=== PATIENT | male | born 1955 | race Caucasian/White ===

== ENCOUNTER 2022-09-27 06:33 | Outpatient (OUT) | payer MEDICARE, SELFPAY ==
[2022-09-27 07:11] LABS: Estimated Average Glucose 103 mg/dL; Glycohemoglobin A1C 5.2 % (4.5-6.2)
[2022-09-27 07:15] LABS: Basophils Absolute Auto 0.1 10^3/uL (0.0-0.1); Basophils Percent Auto 1.2 % (0.2-2.0); Eosinophils Absolute Auto 0.2 10^3/uL (0.0-0.7); Eosinophils Percent Auto 3.2 % (0.9-7.0); Hematocrit 42.7 % (42.0-54.0); Immature Granulocytes Abs Auto 0.02 10^3/uL (0.00-0.03); Immature Granulocytes Pct Auto 0.3 % (0.0-0.5); Lymphocytes Absolute Auto 2.2 10^3/uL (1.2-3.8); Mean Corpuscular HGB Conc 32.8 g/dL (29.9-35.2); Mean Corpuscular Hemoglobin 33.3 pg (25.9-34.0); Mean Corpuscular Volume 101.4 fL (80.0-94.0); Mean Platelet Volume 9.9 fL (9.5-13.5); Monocytes Absolute Auto 0.9 10^3/uL (0.3-0.8); Monocytes Percent Auto 15.3 % (1.7-12.0); Neutrophils Absolute Auto 2.5 10^3/uL (1.4-6.5); Platelet Count 236 10^3/uL (150-450); Red Blood Count 4.21 10^6/uL (4.70-6.10); Red Cell Distribution Width 12.2 % (11.0-15.0); White Blood Count 5.9 10^3/uL (4.0-11.0)
[2022-09-27 07:21] LABS: Alanine Aminotransferase 46 U/L (16-63); Albumin Globulin Ratio 1.2; Albumin Level 3.7 g/dL (3.4-5.0); Alkaline Phosphatase 93 U/L (46-116); Anion Gap 10.5; Aspartate Amino Transferase 28 U/L (15-37); BUN Creatinine Ratio 19.5; Bilirubin Total 0.5 mg/dL (0.2-1.0); Calcium 8.9 mg/dL (8.5-10.1); Carbon Dioxide 29.7 mmol/L (21.0-32.0); Chloride 105 mmol/L (98-107); Estimated GFR (African America >60 (>=60); Estimated GFR (Non-African Ame >60 (>=60); Globulin 3.2 g/dL; Glucose 112 mg/dL (74-106); Potassium 4.2 mmol/L (3.5-5.1); Sodium 141 mmol/L (136-145); Total Protein 6.9 g/dL (6.4-8.2)
[2022-09-27 07:26] LABS: Chol HDL Ratio 2.1; Cholesterol 133 mg/dL (<=200); Free T3 2.56 pg/mL (2.18-3.98); HDL Cholesterol 64 mg/dL (40-60); Triglycerides 100 mg/dL (<=150)
[2022-09-27 08:26] LABS: Prostate Specific Antigen Scrn 0.57 ng/mL (<=4.00)
== END 2022-09-27 06:34 ==
LOC: LAB 06:34
PROVIDERS: PCP Family Medicine; Visit Provider Family Medicine
DX: E78.5 Hyperlipidemia, unspecified (principal); E03.9 Hypothyroidism, unspecified; N40.0 Benign prostatic hyperplasia without lower urinary tract symptoms; K58.9 Irritable bowel syndrome, unspecified; I10 Essential (primary) hypertension; R73.09 Other abnormal glucose; Z12.5 Encounter for screening for malignant neoplasm of prostate
CPT/HCPCS: 36415; 80053; 80061; 83036; 84436; 84443; 84481; 85025; G0103

== ENCOUNTER 2023-10-24 07:07 | Outpatient (OUT) | payer OTHER, SELFPAY ==
[2023-10-24 07:45] LABS: Basophils Absolute Auto 0.1 10^3/uL (0.0-0.1); Basophils Percent Auto 1.6 % (0.2-2.0); Eosinophils Absolute Auto 0.1 10^3/uL (0.0-0.7); Eosinophils Percent Auto 2.6 % (0.9-7.0); Hematocrit 44.6 % (42.0-54.0); Hemoglobin 14.9 g/dL (14.0-18.0); Immature Granulocytes Abs Auto 0.01 10^3/uL (0.00-0.03); Immature Granulocytes Pct Auto 0.2 % (0.0-0.5); Lymphocytes Absolute Auto 1.5 10^3/uL (1.2-3.8); Mean Corpuscular HGB Conc 33.4 g/dL (29.9-35.2); Mean Corpuscular Hemoglobin 33.1 pg (25.9-34.0); Mean Corpuscular Volume 99.1 fL (80.0-94.0); Monocytes Absolute Auto 0.7 10^3/uL (0.3-0.8); Monocytes Percent Auto 17.4 % (1.7-12.0); Neutrophils Absolute Auto 1.8 10^3/uL (1.4-6.5); Neutrophils Percent Auto 42.2 % (43.0-75.0); Platelet Count 205 10^3/uL (150-450); Red Cell Distribution Width 12.8 % (11.0-15.0); White Blood Count 4.3 10^3/uL (4.0-11.0)
[2023-10-24 08:25] LABS: Estimated Average Glucose 100 mg/dL; Glycohemoglobin A1C 5.1 % (4.5-6.2)
[2023-10-24 08:35] LABS: Free T4 0.85 ng/dL (0.76-1.46)
[2023-10-24 08:37] LABS: Alanine Aminotransferase 34 U/L (16-63); Albumin Globulin Ratio 1.3; Alkaline Phosphatase 76 U/L (46-116); Aspartate Amino Transferase 24 U/L (15-37); BUN Creatinine Ratio 19.8; Bilirubin Total 0.8 mg/dL (0.2-1.0); Calcium 8.7 mg/dL (8.5-10.1); Chloride 104 mmol/L (98-107); Cholesterol 139 mg/dL (<=200); Estimated GFR (African America >60 (>=60); Estimated GFR (Non-African Ame >60 (>=60); Free T3 2.35 pg/mL (2.18-3.98); Globulin 3.1 g/dL; Glucose 96 mg/dL (74-106); HDL Cholesterol 70 mg/dL (40-60); Potassium 3.9 mmol/L (3.5-5.1); Sodium 140 mmol/L (136-145); Thyroid Stimulating Hormone 2.148 uIU/mL (0.358-3.740); Total Protein 7.1 g/dL (6.4-8.2); Triglycerides 62 mg/dL (<=150); VLDL CHOLESTEROL 12.4 mg/dL
[2023-10-24 08:50] LABS: Anion Gap 13.1; Carbon Dioxide 26.8 mmol/L (21.0-32.0)
[2023-10-25 04:07] LABS: PSA, Free 0.11 ng/mL; Prostate Specific Ag 0.5 ng/mL (0.0-4.0)
== END 2023-10-24 07:08 | disposition home or self-care (01) ==
LOC: LAB 07:07
PROVIDERS: PCP Family Medicine; Visit Provider Family Medicine
DX: Z00.00 Encounter for general adult medical examination without abnormal findings (principal); E78.5 Hyperlipidemia, unspecified; E03.9 Hypothyroidism, unspecified; I10 Essential (primary) hypertension; R73.09 Other abnormal glucose; N40.0 Benign prostatic hyperplasia without lower urinary tract symptoms
CPT/HCPCS: 36415; 80053; 80061; 83036; 84153; 84154; 84439; 84443; 84481; 85025

== ENCOUNTER 2023-10-27 12:40 | Outpatient (REF) | payer OTHER, SELFPAY ==
[2023-10-27 13:55] LABS: Internal Control Within Normal Limits; Occult Blood Negative
== END 2023-10-27 12:41 | disposition home or self-care (01) ==
LOC: LAB 12:40
PROVIDERS: PCP Family Medicine; Visit Provider Family Medicine
DX: Z00.00 Encounter for general adult medical examination without abnormal findings (principal); E78.5 Hyperlipidemia, unspecified; R73.09 Other abnormal glucose
CPT/HCPCS: G0328

== ENCOUNTER 2024-01-17 10:29 | Outpatient (OUT) | payer OTHER, SELFPAY ==
--- NOTE | 2024-01-17 10:35 | XR_ITS ---
The [address] [address] Patient Name: RONI JIANG MRN: [id number] date: 1955 Sex: M Assigned Patient Location: RAD Current Patient Location: RAD Accession/Order Number: [id number] Exam Date: 01/17/2024 10:40 Report Date: 01/17/2024 10:58 At the request of: KIKE ARENAS Procedure: XR chest 2V EXAMINATION: XR chest 2V HISTORY: Acute Bronchitis J20.9 COMPARISON: XR chest 02/22/2020 FINDINGS: LUNGS: New dense opacity within left lung base favoring infectious infiltrates. VASCULATURE: No increased pulmonary vasculature. PLEURA: No pneumothorax, effusion, or pleural thickening. CARDIAC: No cardiomegaly or cardiac silhouette abnormality. MEDIASTINUM: No visible mass or adenopathy. BONES: No fracture or visible bone lesion. OTHER: Negative. XR/XR chest 2V IMPRESSION: 1. New moderate left basilar infiltrates suggestive of pneumonia. Follow-up chest x-ray in one-2 months to document clearing and to exclude a mass is recommended. Electronically authenticated by: CARROL JIMENEZ Date: 01/17/2024 10:58
== END 2024-01-17 10:30 | disposition home or self-care (01) ==
LOC: RAD 10:30
PROVIDERS: PCP Family Medicine; Visit Provider Family Medicine
DX: J20.9 Acute bronchitis, unspecified (principal)
CPT/HCPCS: 71046; 87070

== ENCOUNTER 2024-12-03 10:10 | Outpatient (OUT) | payer MEDICARE, SELFPAY ==
--- OUTSIDE RECORDS SUMMARY | 2024-12-03 10:16 | XMS_ITS | Clinical Summary ---
Author Organization [facility] Healthcare Address [address] [place] [address] Care Team Providers Care Computer Assistant Name Role Phone Unavailable Primary Care Provider Unavailabl e Social History Tobacco Use Types Packs/Day Years Used Date Smoking Tobacco: Never Assessed Sex and Gender Information Value Date Recorded Sex Assigned at Not on file Legal Sex Male 6:53 PM EDT Gender Identity Not on file Sexual Orientation Not on file Plan of Treatment Not on file
--- OUTSIDE RECORDS SUMMARY | 2024-12-03 10:16 | XMS_ITS | Clinical Summary ---
Author Organization [facility] Address [address] [place] [address] Care Team Providers Care Rate And Cost Analyst Name Role Phone Per Perez MD Primary Care Provider [phone] Juan Ahn MD Unavailable [phone] Allergies No known active allergies Medications levothyroxine (SYNTHROID, LEVOTHROID) 75 MCG tablet Take 1 (one) tablet (75 mcg total) by mouth once daily . Active diclofenac sodium (VOLTAREN) 75 MG EC tablet Take 1 (one) tablet (75 mg total) by mouth daily . 03/08/2021 Active aspirin 81 MG EC tablet Take 1 (one) tablet (81 mg total) by mouth daily . 90 tablet 3 02/15/2022 Active atorvastatin (LIPITOR) 80 MG tablet Take 1 (one) tablet (80 mg total) by mouth nightly . 90 tablet 3 02/15/2022 Active metoprolol tartrate (LOPRESSOR) 25 MG tablet Take 1 (one) tablet (25 mg total) by mouth 2 (two) times a day . 180 tablet 3 02/15/2022 Active nitroGLYCERIN (NITROSTAT) 0.[address] 1 (one) tablet (0.4 mg total) under the tongue every 5 (five) minutes as needed for chest pain . 25 tablet 3 02/15/2022 Active Active Problems Problem Noted Date Diagnosed Date Coronary artery disease 03/21/2024 NSTEMI (non-ST elevated myocardial infarction) 1 04/25/2019 Assessment & Plan (02/25/2020 8:06 AM EST): -Pt with no known cardiac history or family history of cardiac disease. Presented to [facility] with CP, ruled in for NSTEMI with elevated troponin. Transferred to [facility] for further cardiac eval/intervention -EKG reveals NSR w/ TWI in the anterolateral leads -Cr. 1.0 -s/p percutaneous intervention with drug eluting stent placed ot the left anterior descending artery x2 -right radial site without complications -d/w patient importance of DAPT uninterrupted x1 year -encouraged cardiac rehab with diet/ lifestyle modifications -patient will arrange a f/u appointment with known emt paramedic in [place] -Continue ASA, Brilinta, BB, statin -ok to discharge home today from a CV standpoint Dyslipidemia 02/24/2020 Assessment & Plan (02/25/2020 8:06 AM EST): - TC 188, triglycerides 97, HDL 82, LDL 87 per lipid panel today. - continue Lipitor 80mg daily ACS (acute coronary syndrome) 02/23/2020 Family History Medical History Relation Comments Diabetes Father Heart attack Father Heart attack Maternal Uncle 1 Heart disease Maternal Uncle 2 Relation Status Comments Father Maternal Uncle 1 Maternal Uncle 2 Social History Tobacco Use Types Packs/Day Years Used Date Smoking Tobacco: Former Cigarettes 0.3 10 Q uit: 04/10/1994 Smokeless Tobacco: Never Tobacco Cessation:Counseling Given: Not Answered Alcohol Use Standard Drinks/Week Comments Yes 2 (1 standard drink = 0.6 oz pur e alcohol) 1 glass a wine a week AUDIT-C Answer Date Recorded Q1: How often do you have a drink containing alc ohol? Monthly or less 03/24/2020 Q2: How many drinks containi ng alcohol do you have on a typical day when you are drinking? Not asked 03/24/2020 Q3: How often do you have si x or more drinks on one occasion? Not asked 03/24/2020 Sex and Gender Information Value Date Recorded Sex Assigned at Not on file Legal Sex Male 8:12 PM EST Gender Identity Male 02/23/2020 9:13 PM EST Sexual Orientation Straight 02/23/2020 9: 34 PM EST Last Filed Vital Signs Vital Sign Reading Time Taken Comments Blood Pressure 143/77 03/21/2024 12:43 PM EST Pulse 60 03/21/2024 12:43 PM EST Temperature 36.6 C (97.9 F) 02/25/2020 8:12 AM EST Respiratory Rate 18 02/25/2020 8:12 AM EST Oxygen Saturation 99% 02/25/2020 8:12 AM EST Inhaled Oxygen Concentration - - Weight 94.3 kg (208 lb) 03/21/2024 12:37 PM EST Height 177.8 cm (5' 10 ) 03/21/2024 12:37 PM EST Body Mass Index 29.84 03/21/2024 12:37 PM EST Plan of Treatment Health Maintenance Due Date Last Done Comments Abdominal Aortic Ultrasound 1955 CT Colonography 1955 Colonoscopy 1955 Colorectal Cancer Screening/Monitoring 1955 Fecal DNA 1955 Fecal occult blood test (FOBT,FIT) 1955 PSA Level 1955 Tetanus: Every 10yrs 1955 Medicare Wellness Visit 1960 Depression Screening/Follow- Up (PHQ-2/9) 1969 Hepatitis C Screening 1975 Flexible sigmoidoscopy 2007 Respiratory Syncytial Virus Immunization: Risk, 60-74 Risk, or 75+ (1 - Risk 60-74 years 1-dose series) 2017 Falls Risk Assessment 2022 COVID-19 Vaccine (2023-2 5 season) 2024 12/28/2023, 01/11/2023, 08/03/2021, Additional history exists Influenza Vaccine (#1) 2024 , 01/11/2023, 01/21/2022, Additional history exists Zoster Vaccines Completed 03/28/2018, 01/05/2018 Pneumococcal Vaccine: Age 50+ Completed 11/03/2022, 03/25/2020 Medical Devices Implanted Type Area Animal Laboratory Technician Device Identifier Shelf Expiration Date Model / Serial / Lot Stent 3.00 X 12 Synergy Xd Mr - [id number] Implanted:Qty : 1 on 02/24/2020 by Juan Ahn MD at [facility] Stent N/A: Coronary - [employer] [id number] 09/03/2021 [id number] 0 / / [id number] Stent 3.50 X 28 Synergy Xd Mr - [id number] Implanted:Qty : 1 on 02/24/2020 by Juan Ahn MD at [facility] Stent N/A: Coronary - [employer] [id number] 12/17/2021 [id number] 5 / / [id number] Insurance [employer] Advance Directives For more information, please contact: [phone] * Full Code (Latest Code Status on File) Date Activated Date Inactivated Comments 02/24/2020 5:57 PM 02/25/2020 5:21 PM * Full Code Date Activated Date Inactivated Comments 02/23/2020 8:33 PM 02/24/2020 5:57 PM * Full Code - Unverified Date Activated Date Inactivated Comments 02/23/2020 7:53 PM 02/23/2020 8:33 PM Care Teams Rate And Cost Analyst Relationship Specialty Start Date End Date Per Perez MD [address] [facility] [place] [address] PCP - General Family Medicine 02/23/20 Juan Ahn MD [address] [place], [place] [id number] Consulting Physician Cardiology 03/24/20
--- OUTSIDE RECORDS SUMMARY | 2024-12-03 10:21 | XMS_ITS | CCD ---
Author Organization [facility] Care Team Providers Care Long Term Acute Care Registered Nurse Name Role Phone PHYSICIAN, DEFAULT Unavailable Unavailable PHYSICIAN, DEFAULT Unavailable Unavailable Kike Perez Primary Care Provider Ruben Santana Unavailable [phone] KIKE PEREZ Primary Care Unavailable JOVAN QUEZADA Admitting Unavailable CARROL BHATIA Consulting Unavailable NIMA LONGORAI Attending Unavailable KIKE PEREZ Primary Care Unavailable KIKE PEREZ Referring Unavailable Kike Perez MD Primary Care Provider [phone] Ruben Santana MD Unavailable Ruben Santana MD Unavailable DR KIKE PEREZ Consulting Unavailable DR KIKE PEREZ Attending Unavailable DR KIKE PEREZ Admitting Unavailable DR KIKE PEREZ Primary Care Unavailable Kike Perez MD Primary Care Provider [phone] Ruben Santana MD Unavailable KIKE PEREZ Primary Care Unavailable RUBEN SANTANA Attending Unavailabl e KIKE PEREZ Primary Care Unavailable RUBEN SANTANA Attending Unavailabl e Medications Current Medications Medication Drug Class(es) Dates Sig (Normalized) Sig (Original) aspirin 81 mg delayed release oral tablet (12 sources) Platelet Aggregation Inhibitor, Nonsteroidal Anti-inflammatory Drug Start: 02-15-2022 take 1 tablet by mouth once daily aspirin 81 MG EC tablet Take 1 (one) tablet (81 mg total) by mouth daily . 90 tablet 3 02/15/2022 Active Start: 02-24-2020 End: 03-23-2021 take 1 tablet by mouth once daily aspirin 81 MG EC tablet Take 1 (one) tablet (81 mg total) by mouth daily . 90 tablet 3 03/23/2021 Active atorvastatin 80 mg oral tablet (12 sources) HMG-CoA Reductase Inhibitor Start: 02-15-2022 take 1 tablet by mouth once daily atorvastatin (LIPITOR) 80 MG tablet Take 1 (one) tablet (80 mg total) by mouth nightly . 90 tablet 3 02/15/2022 Active Start: 03-15-2021 End: 03-23-2021 take 1 tablet by mouth once daily atorvastatin (LIPITOR) 80 MG tablet Take 1 (one) tablet (80 mg total) by mouth nightly . 90 tablet 3 03/23/2021 Active Start: 02-25-2020 End: 03-24-2020 take 1 tablet by mouth once daily atorvastatin (LIPITOR) 80 MG tablet Take 1 (one) tablet (80 mg total) by mouth nightly . 90 tablet 3 03/24/2020 Active Start: 02-24-2020 End: 02-25-2020 take 80 mg by mouth once daily 80 mg, Oral, Nightly, F irst dose (after last modification) on 02/24/20 at 2100 Start: 02-23-2020 End: 02-24-2020 atorvastatin (LIPITOR) table t 40 mg diclofenac sodium 75 mg delayed release oral tablet (3 sources) Nonsteroidal Anti-inflammatory Drug Start: 03-08-2021 take 1 tablet by mouth once daily diclofenac sodium (VOLTAREN) 75 MG EC tablet Take 1 (one) tablet (75 mg total) by mouth daily . 03/08/2021 Active metoprolol tartrate 25 mg oral tablet (11 sources) beta-Adrenergic Aneesh Start: 02-15-2022 take 1 tablet by mouth twice daily metoprolol tartrate (LOPRESSOR) 25 MG tablet Take 1 (one) tablet (25 mg total) by mouth 2 (two) times a day . 180 tablet 3 02/15/2022 Active Start: 03-15-2021 End: 03-23-2021 take 1 tablet by mouth twice daily metoprolol tartrate (LOPRESSOR) 25 MG tablet Take 1 (one) tablet (25 mg total) by mouth 2 (two) times a day . 180 tablet 3 03/23/2021 Active Start: 02-23-2020 End: 03-24-2020 take 1 tablet by mouth twice daily metoprolol tartrate (LOPRESSOR) 25 MG tablet Take 1 (one) tablet (25 mg total) by mouth 2 (two) times a day . 180 tablet 3 03/24/2020 Active nitroglycerin 0.4 mg sublingual tablet (9 sources) Nitrate Vasodilator Start: 02-15-2022 nitroGLYCE RIN (NITROSTAT) 0.[address] 1 (one) tablet (0.4 mg total) under the tongue every 5 (five) minutes as needed for chest pain . 25 tablet 3 02/15/2022 Active Start: 03-23-2021 nitroGLYCERIN (NITROSTAT) 0.[address] 1 (one) tablet (0.4 mg total) under the tongue every 5 (five) minutes as needed for chest pain . 25 tablet 3 03/23/2021 Active Start: 03-02-2020 End: 03-23-2021 nitroGLYCERIN (NITROSTAT) 0. 4 MG SL tablet Start: 02-24-2020 End: 02-25-2020 0.4 mg, Sublingual, Every 5 min PRN, chest pain, Starting 02/24/20 at 1756 For chest pain. May give up to 3 doses. Call physician for chest pain unrelieved by Nitroglycerin, or recurrent chest pain. DO NOT CRUSH OR CHEW. Completed/Discontinued Medications Medication Drug Class(es) Dates Sig (Normalized) Sig (Original) acetaminophen 325 mg oral tablet (1 source) Start: 02-24-2020 End: 02-25-2020 take 1 tablet by mouth every four hours as needed 650 mg, Oral, Every 4 hours PRN, mild pain, fever 100.4 F or greater, headaches, Starting 02/24/20 at 1756 acetaminophen 325 mg / HYDROcodone bitartrate 5 mg oral tablet (1 source) Opioid Agonist Start: 02-24-2020 End: 02-25-2020 take 1 tablet by mouth every four hours as needed 1 tablet, Oral, Every 4 hours PRN, moderate to severe pain, Starting 02/24/20 at 1756 aluminum hydroxide 40 mg/ml / magnesium hydroxide 40 mg/ml / simethicone 4 mg/ml oral suspension (1 source) Start: 02-24-2020 End: 02-25-2020 take 30 mL by mouth every four hours as needed 30 mL, Oral, Every 4 hours PRN, indigestion, Starting 02/24/20 at 1756 Atropine (1 source) Anticholinergic, Cholinergic Muscarinic Antagonist Start: 02-24-2020 End: 02-25-2020 1 mg, Intravenous, As needed, SINGLE DOSE for bradycardia (HR less than 50), complete heart block, or escape rhythms with symptoms of hemodynamic compromise, Starting Mon02/24/20 at 1756 [] NOTIFY PHYSICIAN, and request patient transfer to cardiac unit if not already there. [] If patient has history of glaucoma, notify physician before administering Atropine, if condition allows. clopidogrel 75 mg oral tablet (3 sources) P2Y12 Platelet Inhibitor Start: 09-21-2020 End: 03-23-2021 take 1 tablet by mouth once daily clopidogreL (Plavix) 75 mg tablet Take 1 (one) tablet (75 mg total) by mouth daily Take 300mg (4 tablets) for first dose only. . 94 tablet 3 09/21/2020 03/23/2021 Discontinued (Prescriber Discontinued) 250 ml heparin sodium, porcine 100 unt/ml injection (1 source) Unfractionated Heparin, Anti-coagulant Start: 02-23-2020 End: 02-24-2020 heparin (porcine) 25,000 unit/250 mL in 0.45% NaCl infusion heparin bolus from bag 0-5,000 Units (1 source) Start: 02-23-2020 End: 02-24-2020 heparin bolus from bag 0-5,000 Units levothyroxine sodium 0.025 mg oral tablet (9 sources) l-Thyroxine Start: 02-24-2020 End: 02-25-2020 take 75 ug by mouth once daily 75 mcg, Oral, Daily, First dose on Mon02/24/20 at 0600 For patients on continuous tube feed: Hold TF from 1 hr before until 1 hr after each dose. TF rate may need adjustment to meet caloric needs. take 1 tablet by mouth once kamilah y levothyroxine (SYNTHROID, LEVOTHROID) 75 MCG tablet Take 1 (one) tablet (75 mcg total) by mouth once daily . Active naloxone (NARCAN) injection 0.1 mg (1 source) Start: 02-24-2020 End: 02-25-2020 naloxone (NARCAN) injection 0.1 mg 2 ml ondansetron 2 mg/ml injection (1 source) Serotonin-3 Receptor Antagonist Start: 02-24-2020 End: 02-25-2020 take 4 mg intravenous route every six hours as needed 4 mg, Intravenous, Every 6 hours PRN, nausea, vomiting, Starting 02/24/20 at 1756 1000 ml sodium chloride 9 mg/ml injection (3 sources) Start: 02-24-2020 End: 02-25-2020 take 75 mL intravenous route every hour 75 mL/hr, Intravenous, Continuous, Starting Mon02/24/20 at 1845, For 4 hours Start: 02-24-2020 End: 02-24-2020 sodium chloride 0.9% (NS) ticagrelor 90 mg oral tablet (7 sources) Start: 03-24-2020 End: 09-21-2020 take 1 tablet by mouth twice daily ticagrelor (BriLINTA) 90 mg Tab tablet Take 1 (one) tablet (90 mg total) by mouth 2 (two) times a day . 180 tablet 3 03/24/2020 09/21/2020 Discontinued (Prescriber Discontinued) Start: 02-23-2020 End: 03-24-2020 take 1 tablet by mouth twice daily ticagrelor (BriLINTA) 90 mg Tab tablet Take 1 (one) tablet (90 mg total) by mouth 2 (two) times a day . 60 tablet 11 02/25/2020 03/24/2020 Discontinued (Reorder) traZODone hydrochloride 50 mg oral tablet (1 source) Serotonin Reuptake Inhibitor Start: 02-24-2020 End: 02-25-2020 take 50 mg by mouth once daily as needed for sleep 50 mg, Oral, Nightly PRN, sleep, Starting Mon02/24/20 at 1756 May repeat times 1 in 30 minutes if still awake. Problems Problem Classification Problem Date Documented Da te Episodic/Chronic Acute myocardial infarction (9 sources) Myocardial infarction; Translations: [Non-ST elevation (NSTEMI) myocardial infarction] Onset: 02-24-2020 02-24-2020 Chronic Coronary atherosclerosis and other heart disease (17 sources) Acute coronary syndrome; Translations: [Coronary arteriosclerosis] Onset: 02-23-2020 02-23-2020 Chronic Disorders of lipid metabolism (13 sources) Dyslipidemia; Translations: [Hyperlipidemia, unspecified] Onset: 02-24-2020 02-24-2020 Chronic Other screening for suspected conditions (not mental disorders or infectious disease) (1 source) Encounter for screening for malignant neoplasm of prostate; Translations: [ENC SCREEN MALIG NEOPLASM PROSTATE] Onset: 08-27-2021 Episodic Results Test Name Value Interpretation Reference Range Facility APOLIPOPROTEIN Bon Apolipoprotein B [Mass/Vol] 59 mg/dL Normal <90 [facility] Comment on above: Result Comment: Reference Range: <90 Risk Category: Optimal < 90 Moderate 90 - 119 High > or = 120 Cardiovascular event risk category cut points (optimal, moderate, high) are based on National Lipid Association recommendations-Ribera TA et al. J Clin Lipid. 2015;9:129-169 and Lamont PS et al. Endocr Pract. 2017;23(Suppl 2):1-87. Performed By: #### 3 [id number], 5224 #### [facility]/[place] [id number] [facility] [place], [place] [employer]: Rory Mcdonough M.D.,PhD #### [id number], [id number], 5060 #### [facility] [place] [address] [employer]: Zachary Koenig MD HEPATIC FUNCTION PANEL Albumin [Mass/Vol] 4.7 g/dL Normal 3.6-5.1 [facility] Comment on above: Performed By: #### 3 4604, 5224 #### [facility]/[address] [place], [place] [employer]: Rory Mcdonough M.D.,PhD #### [id number], 93301, 7600 #### [facility] [place] [address] [employer]: Zachary Koenig MD Albumin/Globulin [Mass ratio] 2.4 {ratio} Normal 1.0-2.5 [facility] Comment on above: Performed By: #### 3 4604, 5224 #### [facility]/[place] [address] [facility] [place] [employer]: Rory Mcdonough M.D.,PhD #### [id number], 12307, 7600 #### [facility] [address], [address] [place], [place] [id number] [employer]: Zachary Koenig MD ALP [Catalytic activity/Vol] 65 U/L Normal 35-144 [facility] Comment on above: Performed By: #### 3 4604, 5224 #### [facility]/[place] [address] [facility] [place] [employer]: Rory Mcdonough M.D.,PhD #### [id number], 04452, 7600 #### [facility] of [place] [address] , [address] [place], [place] [id number] [employer]: Zachary Koenig MD ALT [Catalytic activity/Vol] 29 U/L Normal 9-46 [facility] Comment on above: Performed By: #### 3 4604, 5224 #### [facility]/[place] [address] [facility] [place] [employer]: Rory Mcdonough M.D.,PhD #### [id number], 85197, 7600 #### [facility] of [address] , [address] [place], [place] [id number] [employer]: Zachary Koenig MD AST [Catalytic activity/Vol] 28 U/L Normal 10-35 [facility] Comment on above: Performed By: #### 3 4604, 5224 #### [facility]/[place] [address] [facility] [place] [employer]: Rory Mcdonough M.D.,PhD #### 47535, 71377, 7600 #### [facility] of [place] [address] [address] , [address] [place], [place] [id number] [employer]: Zachary Koenig MD Bilirubin [Mass/Vol] 0.7 mg/dL Normal 0.2-1.2 [facility] Comment on above: Performed By: #### 3 4604, 5224 #### [facility]/[place] [address] [place] [address] [employer]: Rory Mcdonough M.D.,PhD #### [id number], 38566, 7600 #### [facility] [address] [employer]: Zachary Koenig MD BILIRUBIN, INDIRECT 0.5 mg/dL (calc) Normal 0.2-1.2 [facility] Comment on above: Performed By: #### 3 4604, 5224 #### [facility]/[address] [place] [employer]: Rory Mcdonough M.D.,PhD #### 56484, 87044, 7600 #### [facility] of [address] [employer]: Zachary Koenig MD Bilirubin.indirect [Mass/Vol] 0.2 mg/dL Normal < OR = 0.2 [facility] Comment on above: Performed By: #### 3 4604, 5224 #### [facility]/[address] [place] [employer]: Rory Mcdonough M.D.,PhD #### 54509, 55511, 7600 #### [facility] of [address] [employer]: Zachary Koenig MD Globulin (S) [Mass/Vol] 2.0 g/dL Normal 1.9-3.7 [facility] Comment on above: Performed By: #### 3 4604, 5224 #### [facility]/[address] [place] [employer]: Rory Mcdonough M.D.,PhD #### 62870, 54586, 7600 #### [facility] of [place] [id number] [employer]: Zachary Koenig MD Protein [Mass/Vol] 6.7 g/dL Normal 6.1-8.1 [facility] Comment on above: Performed By: #### 3 4604, 5224 #### [facility] [address] [place] [employer]: Rory Mcdonough M.D.,PhD #### [id number], 40981, 7600 #### [facility] [address] , [address] [place] [id number] [employer]: Zachary Koenig MD HS CRPon 03-27-2024 HS CRP 0.6 mg/L Normal [facility] Comment on above: Result Comment: Refe rence Range Optimal <1.0 Jeashly PS et al. Endocr Pract.2017;23(Suppl 2):1-87. For ages >17 Years: hs-CRP mg/L Risk According to AHA/CDC Guidelines <1.0 Lower relative cardiovascular risk. 1.0-3.0 Average relative cardiovascular risk. 3.1-10.0 Higher relative cardiovascular risk. Consider retesting in 1 to 2 weeks to exclude a benign transient elevation in the baseline CRP value secondary to infection or inflammation. >10.0 Persistent elevation, upon retesting, may be associated with infection and inflammation. Shahram TA, Claus GA, Juan RW, et al. Markers of inflammation and cardiovascular disease: application to clinical and public health practice: A statement for healthcare professionals from the Centers for Disease Control and Prevention and the [place] [employer]. Circulation 2003; 107(3): 499-511. Performed By: #### 3 4604, 5224 #### [facility]/[place] [id number] [facility] [address] [place], [place] [employer]: Rory Mcdonough M.D.,PhD #### 26484, 66155, 7600 #### [facility] [address] [facility], [address] [place] [id number] [employer]: Zachary Koenig MD LIPID PANEL, STANDARDon 03-10 Cholesterol [Mass/Vol] 162 mg/dL Normal <200 [facility] Comment on above: Performed By: #### 3 4604, 5224 #### [facility]/[place] [address] [facility] [address] [place] [employer]: Rory Mcdonough M.D.,PhD #### 69493, 06178, 7600 #### [facility] [address], [address] [place] [address] [employer]: Zachary Koenig MD Cholesterol in HDL [Mass/Vol] 77 mg/dL Normal > OR = 40 [facility] Comment on above: Performed By: #### 3 4604, 5224 #### [facility]/[place] [address] [facility] [place] [employer]: Rory Mcdonough M.D.,PhD #### 61534, 39401, 7600 #### [facility] [address], [address] [place] [address] [employer]: Zachary Koenig MD Cholesterol in LDL [Mass/Vol] 69 mg/dL Normal [facility] Comment on above: Result Comment: Refe rence range: <100 Desirable range <100 mg/dL for primary prevention; <70 mg/dL for patients with CHD or diabetic patients with > or = 2 CHD risk factors. LDL-C is now calculated using the Carmella calculation, which is a validated novel method providing better accuracy than the Friedewald equation in the estimation of LDL-C. Tian MARSHALL et al. DIDI. 2013;310(19): 0934-5542 (http://education.LetsVenture.StyleShare/faq/LGB066) Performed By: #### 3 4604, 5224 #### [facility] [place] [employer]: Rory Mcdonough M.D.,PhD #### 98575, 10518, 7600 #### [facility] [address], [address] [place] [address] [employer]: Zachary Koenig MD Cholesterol.total/Cho lesterol in HDL [Mass ratio] 2.1 {ratio} Normal <5.0 [facility] Comment on above: Performed By: #### 3 4604, 5224 #### [facility]/[place] [address] [facility] [place] [employer]: Rory Mcdonough M.D.,PhD #### 30356, 91530, 7600 #### [facility] [address], [address] [place] [address] [employer]: Zachary Koenig MD NON HDL CHOLESTEROL 85 mg/dL (calc) Normal <130 [facility] Comment on above: Result Comment: For patients with diabetes plus 1 major ASCVD risk factor, treating to a non-HDL-C goal of <100 mg/dL (LDL-C of <70 mg/dL) is considered a therapeutic option. Performed By: #### 3 4604, 5224 #### [facility]/[address] [place] [employer]: Rory Mcdonough M.D.,PhD #### 59161, 65074, 7600 #### [facility] [address], [address] [place] [address] [employer]: Zachary Koenig MD Triglyceride [Mass/Vol] 77 mg/dL Normal <150 [facility] Comment on above: Performed By: #### 3 4604, 5224 #### [facility]/[address] [place] [employer]: Rory Mcdonough M.D.,PhD #### [id number], 03551, 7600 #### [facility] of [address] [employer]: Zachary Koenig MD LIPOPROTEIN (a)on 03-27-2024 Lipoprotein a [Mass/Vol] mg/dL Normal <75 [facility] Comment on above: Result Comment: Risk Category Optimal < 75 nmol/L Moderate 75 - 125 nmol/L High > 125 nmol/L Cardiovascular event risk category cut points (optimal, moderate, high) are based on Lester Victoria JACC 2017;69:692-711. Performed By: #### 3 7524, 5224 #### [facility] [address] [place] [address] [employer]: Rory Mcdonough M.D.,PhD #### 46661, 85731, 2750 #### [facility] [address], [address] [place] [address] [employer]: Zachary Koenig MD ECG 12 Leadon 03-21-2024 Atrial Rate [facility] P [place] [facility] P-R Interval [facility] Q-T Interval [facility] Q-T Interval (corrected) [facility] QRS Duration [facility] QTC Calculation (Bezet) [facility] R [place] [facility] T [place] [facility] Ventricular [facility] CBC AUTO DIFFon 08-24-2021 BASO # 0.1 103/ul Normal 0.0-0.1 [facility] Comment on above: Performed By: #### C BC #### [facility] [address] [place] [address] Dr. Fredy Trejo Basophils/100 WBC (Bld) 1.5 % Normal 0.2-2.0 [facility] Comment on above: Performed By: #### C BC #### [facility] [address] [place] [address] Dr. Fredy Trejo EO # 0.1 103/ul Normal 0.0-0.7 [facility] Comment on above: Performed By: #### C BC #### [facility] [address] [place] [address] Dr. Fredy Trejo Eosinophils/100 WBC (Bld) 2.8 % Normal 0.9-7.0 [facility] Comment on above: Performed By: #### C BC #### [facility] [address] [place] [address] Dr. Fredy Trejo Erythrocyte distribution width (RBC) [Ratio] 13.2 % Normal 11.0-15.0 [facility] Comment on above: Performed By: #### C BC #### [facility] [address] [place] [address] Dr. Fredy Trejo Hematocrit (Bld) [Volume fraction] 42.2 % Normal 42.0-54.0 [facility] Comment on above: Performed By: #### C BC #### [facility] [address] [place] [address] [address] Fredy Trejo Hemoglobin (Bld) [Mass/Vol] 14.2 g/dL Normal 14.0-18.0 [facility] Comment on above: Performed By: #### C BC #### [facility] [address] [place] [address] Dr. Fredy Trejo IG # 0.01 10e3/ul Normal 0.00-0.03 [facility] Comment on above: Performed By: #### C BC #### [facility] [address] [place] [address] Dr. Fredy Trejo IG % 0.2 % Normal 0.0-0.5 [facility] Comment on above: Performed By: #### C BC #### [facility] [address] [place] [address] Dr. Fredy Trejo LYMPH # 2.1 103/ul Normal 1.2-3.8 [facility] Comment on above: Performed By: #### C BC #### [facility] [address] [place] [address] Dr. Fredy Trejo Lymphocytes/100 WBC (Bld) 44.7 % Normal 20.5-60.0 [facility] Comment on above: Performed By: #### C BC #### [facility] [address] [place] [address] Dr. Fredy Trejo MANUAL DIFF REQ NO Normal [facility] Comment on above: Performed By: #### C BC #### [facility] [address] [place] [address] Dr. Fredy Trejo MCH (RBC) [Entitic mass] 33.6 pg Normal 25.9-34.0 [facility] Comment on above: Performed By: #### C BC #### [facility] [address] [place] [address] Dr. Fredy Trejo MCHC (RBC) [Mass/Vol] 33.6 g/dL Normal 29.9-35.2 [facility] Comment on above: Performed By: #### C BC #### [facility] [address] [place] [address] [address] Fredy Trejo MCV (RBC) [Entitic vol] 99.8 fL Critically high 80.0-94.0 [facility] Comment on above: Performed By: #### C BC #### [facility] [address] [place] [address] [address] Fredy Trejo MONO # 0.7 103/ul Normal 0.3-0.8 [facility] Comment on above: Performed By: #### C BC #### [facility] [address] [place] [address] [address] Fredy Trejo Monocytes/100 WBC (Bld) 15.5 % Critically high 1.7-12.0 [facility] Comment on above: Performed By: #### C BC #### [facility] [address] [place] [address] Dr. Fredy Trejo NEUT # 1.7 103/ul Normal 1.4-6.5 [facility] Comment on above: Performed By: #### C BC #### [facility] [address] [place] [address] Dr. Fredy Trejo Neutrophils/100 WBC (Bld) 35.3 % Critically low 43.0-75.0 [facility] Comment on above: Performed By: #### C BC #### [facility] [address] [place] [address] Dr. Fredy Trejo Platelet mean volume (Bld) [Entitic vol] 9.3 fL Critically low 9.5-13.5 [facility] Comment on above: Performed By: #### C BC #### [facility] [address] [place] [address] Dr. Fredy Trejo PLT 240 103/ul Normal 150-450 [facility] Comment on above: Performed By: #### C BC #### [facility] [address] [place] [address] [address] Fredy Trejo RBC 4.23 106/ul Critically low 4.70-6.10 [facility] Comment on above: Performed By: #### C BC #### [facility] [address] [place] [address] [address] Fredy Trejo WBC 4.7 103/ul Normal 4.0-11.0 [facility] Comment on above: Performed By: #### C BC #### [facility] [address] [place] [address] Dr. Fredy Trejo FREE THYROXINE INDEX T7on FTI 2.13 Normal 1.30-4.50 [facility] Comment on above: Performed By: #### L IPID, T7, TSH, CMP #### [facility] [address] [place] [address] Dr. Fredy Trejo T3U 38.0 % Normal 33.0-40.0 [facility] Comment on above: Performed By: #### L IPID, T7, TSH, CMP #### [facility] [address] [place] [address] Dr. Fredy Trejo T4 [Mass/Vol] 5.60 ug/dL Normal 4.50-12.10 [facility] Comment on above: Performed By: #### L IPID, T7, TSH, CMP #### [facility] [address] [place] [address] Dr. Fredy Trejo GLYCOHEMOGLOBIN A1Con 2021 ADA RECOMMENDATION SEE BELOW Normal [facility] Comment on above: Result Comment: ADA RECOMMENDED LIMIT 4.0 - 6.0 ADA THERAPEUTIC TARGET < 7.0 ACTION SUGGESTED > 7.0 Performed By: #### A 1C #### [facility] [address] [place] [address] Dr. Fredy Trejo Glucose [Mass/Vol] 108 mg/dL Normal [facility] Comment on above: Performed By: #### A 1C #### [facility] [address] [place] [address] Dr. Fredy Trejo HbA1c (Bld) [Mass fraction] 5.4 % Normal 4.5-6.2 [facility] Comment on above: Performed By: #### A 1C #### [facility] [address] [place] [address] Dr. Fredy Trejo LIPID PROFILEon 08-24-2021 CHOL-HDL RATIO NORM SEE BELOW Normal [facility] Comment on above: Result Comment: 3.3 - 4.4 LOW RISK 4.4 - 7.1 AVERAGE RISK 7.1 - 11.0 MODERATE RISK >11.0 HIGH RISK Performed By: #### L IPID, T7, TSH, CMP #### [facility] [address] [address] [address] Fredy Trejo Cholesterol [Mass/Vol] 150 mg/dL Normal <=200 [facility] Comment on above: Performed By: #### L IPID, T7, TSH, CMP #### [facility] [address] [address] [address] Fredy Trejo Cholesterol in HDL [Mass/Vol] 53 mg/dL Normal 40-60 [facility] Comment on above: Performed By: #### L IPID, T7, TSH, CMP #### [facility] [address] [address] [address] Fredy Trejo Cholesterol in LDL [Mass/Vol] 72.0 mg/dL Normal [facility] Comment on above: Performed By: #### L IPID, T7, TSH, CMP #### [facility] [address] [address] [address] Fredy Trejo Cholesterol.total/Cho lesterol in HDL [Mass ratio] 2.8 {ratio} Normal [facility] Comment on above: Performed By: #### L IPID, T7, TSH, CMP #### [facility] [address] [address] [address] Fredy Trejo HDL NORMAL > or = 60 mg/dl - LO W CARDIOVASCULAR RISK <40 mg/dl - HIGH CARDIOVASCULAR RISK Normal [facility] Comment on above: Performed By: #### L IPID, T7, TSH, CMP #### [facility] [address] [address] [address] Fredy Trejo LDL CALC NORMAL SEE BELOW Normal [facility] Comment on above: Result Comment: <100 mg/dl OPTIMAL 100 - 129 mg/dl NEAR OR ABOVE OPTIMAL 130 - 159 mg/dl BORDERLINE HIGH 160 - 189 mg/dl HIGH >190 mg/dl VERY HIGH Performed By: #### L IPID, T7, TSH, CMP #### [facility] [address] [address] [address] Fredy Trejo Triglyceride [Mass/Vol] 125 mg/dL Normal <=150 [facility] Comment on above: Performed By: #### L IPID, T7, TSH, CMP #### [facility] [address] [address] [address] Fredy Trejo VLDL CALC 25.0 mg/dL Normal [facility] Comment on above: Performed By: #### L IPID, T7, TSH, CMP #### [facility] [address] [address] [address] Fredy Trejo OCC BLD IMMUNO SCREENon 08-08 OCCULT BLOOD Negative Normal NEGATIVE [facility] Comment on above: Performed By: #### O BSCRN #### [facility] [address] [place] [address] Dr. rFedy Trejo PROF 14(COMP METB)on 022 Albumin [Mass/Vol] 3.8 g/dL Normal 3.4-5.0 [facility] Comment on above: Performed By: #### L IPID, T7, TSH, CMP #### [facility] [address] [place] [address] Dr. Fredy Trejo Albumin/Globulin [Mass ratio] 1.2 {ratio} Normal [facility] Comment on above: Performed By: #### L IPID, T7, TSH, CMP #### [facility] [address] [address] [address] Fredy Trejo ALP [Catalytic activity/Vol] 81 U/L Normal 46-116 [facility] Comment on above: Performed By: #### L IPID, T7, TSH, CMP #### [facility] [address] [place] [address] Dr. Fredy Trejo ALT [Catalytic activity/Vol] 40 U/L Normal 16-63 [facility] Comment on above: Performed By: #### L IPID, T7, TSH, CMP #### [facility] [address] [place] [address] Dr. Fredy Trejo Anion gap [Moles/Vol] 10.4 mmol/L Normal [facility] Comment on above: Performed By: #### L IPID, T7, TSH, CMP #### [facility] [address] [address] [address] Frdey Trejo AST [Catalytic activity/Vol] 24 U/L Normal 15-37 [facility] Comment on above: Performed By: #### L IPID, T7, TSH, CMP #### [facility] [address] [address] [address] Fredy Trejo Bilirubin [Mass/Vol] 0.5 mg/dL Normal 0.2-1.0 [facility] Comment on above: Performed By: #### L IPID, T7, TSH, CMP #### [facility] [address] [place] [address] Dr. Fredy Trejo Calcium [Mass/Vol] 8.8 mg/dL Normal 8.5-10.1 [facility] Comment on above: Performed By: #### L IPID, T7, TSH, CMP #### [facility] [address] [place] [address] Dr. Fredy Trejo Chloride [Moles/Vol] 102 mmol/L Normal 98-107 [facility] Comment on above: Performed By: #### L IPID, T7, TSH, CMP #### [facility] [address] [place] [address] Dr. Fredy Trejo CO2 [Moles/Vol] 27.8 mmol/L Normal 21.0-32.0 [facility] Comment on above: Performed By: #### L IPID, T7, TSH, CMP #### [facility] [address] [place] [address] Dr. Fredy Trejo Creatinine [Mass/Vol] 1.14 mg/dL Normal 0.70-1.30 [facility] Comment on above: Performed By: #### L IPID, T7, TSH, CMP #### [facility] [address] [place] [address] Dr. Fredy Trejo EGFR-AF QATARI >60 Normal >=60 [facility] Comment on above: Performed By: #### L IPID, T7, TSH, CMP #### [facility] [address] [address] [address] Fredy Trejo EGFR-NON AF QATARI >60 Normal >=60 [facility] Comment on above: Performed By: #### L IPID, T7, TSH, CMP #### [facility] [address] [address] [address] Fredy Trejo Globulin (S) [Mass/Vol] 3.2 g/dL Normal [facility] Comment on above: Performed By: #### L IPID, T7, TSH, CMP #### [facility] [address] [address] [address] Fredy Trejo Glucose [Mass/Vol] 99 mg/dL Normal 74-106 [facility] Comment on above: Performed By: #### L IPID, T7, TSH, CMP #### [facility] [address] [place] [address] Dr. Fredy Trejo Potassium [Moles/Vol] 4.2 mmol/L Normal 3.5-5.1 [facility] Comment on above: Performed By: #### L IPID, T7, TSH, CMP #### [facility] [address] [place] [address] Dr. Fredy Trejo Protein [Mass/Vol] 7.0 g/dL Normal 6.4-8.2 [facility] Comment on above: Performed By: #### L IPID, T7, TSH, CMP #### [facility] [address] [address] [address] Fredy Trejo Sodium [Moles/Vol] 136 mmol/L Normal 136-145 [facility] Comment on above: Performed By: #### L IPID, T7, TSH, CMP #### [facility] [address] [place] [address] Dr. Fredy Trejo Urea nitrogen [Mass/Vol] 27.0 mg/dL Critically high 7.0-18.0 [facility] Comment on above: Performed By: #### L IPID, T7, TSH, CMP #### [facility] [address] [address] [address] Fredy Trejo Urea nitrogen/Creatinine [Mass ratio] 23.7 mg/mg Normal [facility] Comment on above: Performed By: #### L IPID, T7, TSH, CMP #### [facility] [address] [address] [address] Fredy Trejo TSHon 08-24-2021 TSH 1.918 uIU/mL Normal 0.358-3.740 [facility] Comment on above: Performed By: #### L IPID, T7, TSH, CMP #### [facility] [address] [address] [address] Fredy Trejo TSH RANGE SEE BELOW Normal [facility] Comment on above: Result Comment: <0.3 4 UIU/ml HYPERTHYROID 0.34-5.60 UIU/ml EUTHYROID >5.60 UIU/ml HYPOTHYROID Performed By: #### L IPID, T7, TSH, CMP #### [facility] [address] [address] [address] Fredy Trejo ECG 12 Leadon 03-23-2021 Atrial Rate [facility] [place] [facility] P-R Interval [facility] Q-T Interval [facility] Q-T Interval (corrected) [facility] QRS Duration [facility] QTC Calculation (Bezet) [facility] R [place] [facility] T [place] [facility] Ventricular Rate [facility] Coding Summaryon 06-26-2020 [facility] OkzsjvqpCLt5fIo+PGhlYW Q+GJ9CVONrA13bxTMoiL8I G7kJFF4TFLZYSWBTPX1TBD 5imXI3DVueN3PaeqPf QtojfRIgXM16NOp5RUU0dK rgQBirpC3tpETaG5x5TeOr PE95tU44ZCxwMJLcGlG1Xi ZpbjsgbWFy A0lzLqMwuPXcNxa+PHRhYm xlIHdpZHRoPScxMDAlJyBz aLcuES5fMx8zIXDrWOSecS xhcHNlOiBj b9zwGRShMEckCV9cuAorE2 ZojXE0YRXtm2b7Ae76pPX+ GJAfUSF8yEvjIRcyo108Lk Lmg3drKOU7 gIZnOPsxGWD8T21ms7J7GF OaQKRtPZX6mBE5pL3ayOdr ulsgQ2QgmTNmAaV0WKQ1tZ YwrZ1dgKei cgosjH7yEgz+I71BPN9YLJ ZFEX0BFkp9Z3IaBoyldHG+ CE49WRGgIB30xCGthXCar4 vdoLj6WyRi NGHcOPS2iVlrXEcpy8LkKJ GuB91zhWWtk8J2WNPfgUry jDHhQpTeoKR1pR4jKXkivu fjw2hqjtaf Bqqol7mtet89aJ49D95gLH hrEYRoEPX3UQPuIMMnzIda ec4njL6aKe9+JDkwr4ibw8 hktSv3NmTc SRMjrrSpuLwnGGM5w8VvKc 46R6MlcUhyj5FsExc4zi18 bKGes2F8nPQ8VAhyWAFpxE 8bWLdxPkF0 JGFqSkTboL64tYIcSAabLj 6kjAjncKufBZ2sYJDcevfn OAOnhN7yDASejFCqpYnqEA 4wNTBpbjtm l708QdXeYUE1IMHejUOxW0 RegH6oDoSmVJCyEILxD5Ls aUAnSBjyV458HRsuRcP3XK NfxdJvR1Nn AUXyiOjeWxT2u5H2Cd8Ju4 QaikavYAK2QNnpYEEyBoV3 UkKcMwU0K6MiAei5CTYiwA qtZT5fY2Pg TKXnqszscmfohVT2TYRmHF XbsU33dTFhNJyrOh6qx9U5 k326ISEzOEAwaN91Zp9qeS ogMTBwdCBU wA3haeivc3jlettmOaJhSR ZkZFf2FNb9ACHgsGolYtVl SBG4LxN7WPV6uBBwkY2cyR wpgldetX5q Oyc+I62fnS4bCRS1ZCR5vx xfBZUscuKeMS92IB81C8Ii PjwvdGFibGU+PGRpdiBzdH bzWZ5aEvYe m5qyz1SiEPmhL1AsJKIrTG ydIya9YRCvLQJ2bNA7uA9a OSPhQXlwm9A9vNE6U1Yqsl Mzay3fy9lq NVJqQBviD53moGCsj4U6PI JagKH1RZJfbBhfNlEsxP41 Oyc+XJJqiTweh0InDnfnj4 xgg9dkwQe8 XlSoICSbibUdlFkbPVV5n7 OgQs33M34sGAxtCBKpWNKc SIIcQYPizGlvkg9coH2fDl 8+PGNvbCB3 dVA8eV6aARYyUzJ2AVstL6 54IuXvlQPnNxnbg5jnh7ba zWo7NhCaQMHhxwJuvGshVY Z4v7ZsRu59 W76pLAglZFNsCPSkHWSsSS BznWeosa9blG4dZw3+PC9j a2iwdy30oV20vJZ+PHRkIH D3tVywXBai WLPmgY4iGGddWxX7FZUpNi CvdM72lWWxZNixXa7chWwh xQevYJ3nVROduuuzg793Fn Uxy4wdDQLg iAOmMGuhVBN1N96og4T7DV PzSUHwJYN9vKK0tB3pzLvs bjogbGVmdDsgdmVydGljYW moYYtaT520 IHRvcDsnPlBhdGllbnQgTm WzLYs9D6TbBcb1TRRrgLuf MW0ctEBgSLmhBe5jfFjzaQ jvIV7hUAEu mgoqe935ApZov1meOHEeeE VmKBbeZWA9J39sk1C3JNVx FBGrEKX3cYO7aD3hzLzklg ogbGVmdDsg spCnnBbmYHdaHKxpN012AD RvcDsnPkJpcnRoIERhdGU6 QD10FN62bIJgi3J0kWP1Q8 BhZGRpbmct udycrQN0HJCbDASjoG33Iw 6guEcmTg6fRRPdUYG1RXFu uURjE3StrI0jKqJnLDByKQ IcJ4QkdXYw MBdvN067IXwnTkX9GKLggn IlG5RwNYPbnYofWyU0l0C8 Os7FC3V1UU09RI97eOHat1 Q6eZP1A3Lg BWIolrslqglpdQW2KIPlFT DxoT36Qs8iqFcfEn1kBAOu JBD4IJZrxADsH5IovL4jCk AjMDAwMDAw L9UueNGwTWdbS256SFxsLk X2OFGledRiH8EmWQNeuPvh OcT0g3F6Eg4KKQj3IY01WH 41dHPfd3G2 kWX7U6KvKAAuxlcqttsczA R2DHQwTWQrqI81Am1xcUpd Tc8fESEgBMZ9XEXqdNWxC7 InuG6cJsNj CLGzFVGfS2IpyRYkBGklG1 52ZLhmPgE2NCCeakGxD7Xd MYErqZymMvA3n4B0Ev1OSA MeHA09YAT3 zOQ1KG71QH69E0UoAjelaQ FibGU+PHRhYmxlIHdpZHRo EKhoWZIsRsUihQdqZA3kFv 9yZGVyLWNv wScxfYQuOdXra2hsNBOwPQ qpJN5osBtyL3NvrXG2ATQd o5h3Gd28R07jL7DfpQJ+PG JvnTX6nKX8 uI1dTkSaAlG8SLivP751Uu RwmIOcYhzkq5weq5mdrZg2 IwS5OKNzwlMudFniZQK9a4 CsQv33S12d IHdpZHRoPSIxNSUiIHZhbG kswn1glA8uTk6+PGNvbCB3 kUE2bZ5nXgLgDfW1AGowU5 49InRvcCIv Rdxjc2wsu7gpeJa2ZkFnPN HdryLrxMeaDYU7v1YqDd44 E5YduCars6RoVhi8cj07iG Mlg9V9pCB6 J7DoWBMaeaxivUAziAnlGX 2jRDFqfxhuGCQyzB1gVGUl B4e4SuAtPwF1RNduV9Aksb Y5MDUlxCMa IPzgNEL0C57ne5B7KPKoSN VmEFH8lNC2iM5ufAjdquzs bGVmdDsgdmVydGljYWwtYW vhD953SYZn kTtwMFNtiO0cJZVinHAugR avZV3nVQVmshjuDrtJJdUV IYBCSRURJACLGF56QN70tA Ffo2T7kNL9 C0DxMZKmivthedcdaZO8SB WjLDXmpH64hJUkTJasOy9d i8U5o646YFOjQUQacH69Jr 9udDogMTBw tGPSmJ4lrptle6jeudwoXx PeYXWpBFd2QEo3XNSelYut SvMfMAH1KxL3FDV8cQJivS 1hbGlnbjog mX3tIrg+AGNhFbJyYUe7Bu wvdGQ+CLDhMOF9mIqeJBvr VRPvbH5oEXGsB1h7ItTdFv R1IEvkT3Fo YSGegrhwLv82jC4cDsQxSi K0TEsrY6CeylL1ZSTliLSq PUhvBKP0R44ge4T3INMsMR CqHHK3dHN2 lQ4mxZrqyizhvUDnaWwivs UqqVijPJzwXPsxZ689PSWp tFuhJvBkIEanUXBvLL77OT 26hPZwz8K4 xAD8V0IaEQWbiypwhipgjL M0UWBtYVJslU85xFIuDHvc Iv7lz4Q5f478BNWyUJNrxA 42Xi2jqFrt NCSunAKOxT1ixixus6pinx tlYdVrOXFiSRf6CYj2PADj zYfnLdLxAQZ4DaD5KJF4jE SbpF0gdHpt gulvfK3nAxy+TUFMRTwvdG Q+DMHaHKV0mCdmHLvcCFMd aJ3nRMFsQ2i4IeYjQoI0LI seC9NnLFKv tusbLy61oS9jNzEjYlY4AT opB3ZgefF6UMHfnXHfMJrg TMG0H02kq3B8WCMlVLVgCQ B5zQT0bQ5f bGlnbjogbGVmdDsgdmVydG iuFLutEHewY055KLWucQpk Ix2KMC54TZ76W8ZmSxozzH FibGU+PHRh YmxlIHdpZHRoPScxMDAlJy SdlPzrKN0mVm7sXDBnVDYx zBavmLHuQbOtw7ajEPPwID tmRI9hbBbq P1TtzOM1KKZet8m8Cv33K2 5bO9DzyPN+YINlpZV6cTZ5 bA0qQoEqDpL7PLguT969Ni RvcCIvPjxj i1ool4bjoVj9YxAmERGacb KycCiyHOF7g7BxWf50Q45x IHdpZHRoPSIyMCUiIHZhbG zetk0vdZ8s Ii8+YNEmnNJ9pIJ1mD6sEs YxYiW0FMskR626LpCvnBLf MzahW83lN0YbmTX+PHRyPj j0WUKfjXoz OJ7bpLTcLIoqGq9pBDB6Mn GiKwNtCLnuO9FxBRYhpgdp vgnbwIR2SMUxDSGtlZ26Ao 2rxMkdVc0x PBHnCQE7EERedCEfX3SqxO 5vUfHfLQGoMPZbL6ZfoZQt NWorB077LSybJpX3ITMtlp GhP6WiESQh wAcoYeD8a3C1Ao0KtPfbrJ TcAY2bChAySLy4Y3FeJxq0 JKKtkFqfUH3pvTXyGQbnSf 1yaWdodDog FQ0sZMGjrjdig574XtShe9 rpAQKobRLrRPfmQAY2H83e h7A2EQSrDVCgMPR7pEW2mA 1hbGlnbjog bGVmdDsgdmVydGljYWwtYW flF516TOBfaUitDeCCQew8 N1UyBki0WANtdDfkPS0dwE MhPQxeBp7u hLsqzHqeXB7dAJYoxnbya9 71DtYnr0sgLQNusWHaUJvd RXM1U15be9P9KQQvKSPhXC Z9nWU4uF0o bGlnbjogbGVmdDsgdmVydG cdLTtkCWugX881OPFncOin Qs9LUij7X3KcDvx1SAVgrV jdNF9slBMk CZwoTs4uiFabhAonAO5jVA Emshkrw203YzYah2hxONFd sGHcXDdvKDY4D03pk7E7TY MwMDAwMDA7 fYA9xC3ngHjvdflnbKLkuX lmaeJnjFypJNbaKGjuG365 IHRvcDsnPlBheWVyOjwvdG Q+TG67vf64 G0EmSzvzUoh1GJJtPXI1oQ M9sQ5oFYQpYKnvp6K3mRS1 B4OcsoEzkm3vh1qqFGXpPK emO81kbJAn q7P4VYEcsSD1TWQkeZrhZm FlfE94Smo+TMMviUmqe5Zk Thdyk7gkg6cfsLe6EzIxAZ IgdmFsaWdu GSF0o9PzMo24N70hAVypFM TrABAlPCHsSGKmpSpdgv5t uR6fOn4+XQOjuUF6fAW3aX 1eMsLvWfO8 CHmdP171XvNrrNKiKcwzj2 qyc9rroBd6QnEzEHKikxNx oBbhJQF8a1JfDo92X3HflT xbk5CpVjo8 kd30fCLxw4F4cUI0F4VvWG UapdtqbHUyyQyrXS3qLDMd abqoNSTtaF4aJEYsI6r3Fx IbKnJ2PCuc Y4IyrzI2SQRcvPWfJPekME I4I10el3B1DFAjRWMxLWE4 yZF4tH0mqCaqtsxojEUnsG sgdmVydGlj SJrjSSbrI428KYAxnMmlXN BvsD0oYVWcyFHjpDwpSL6h NTBpbjsnPlNwYXNpYyBQQS umWDxpy7Kd bmRhcjwvdGQ+DCYdFMV8zW qvPLvqGKYxrP0nGTPkY1i4 OsEzZrJ7MCgcV7EoJWTrcg dfMd61fZ2c OzWbRjB2LNgjZ6PqvfX3ZQ IgfPSrKOtcGXY3X32zs6A6 HYKkMOGyZGK5rFS0mR0uxL lnbjogbGVm dDsgdmVydGljYWwtYWxpZ2 23JDHjdDgvMfQfJfZ9HLr6 VM59RL52bYMjv3C5uQY4O7 BhZGRpbmct wjkhnUU2PEOfWPYsyM68cZ GzAYdcUh6dv4Y6w315LEHi IJEgqN59Oh6awRwzVIPeeP AOaE8lkmfy w1wynybzHfBfXGStXTd1RA m5UPZzkOufRoMvKZJ0IeH2 CHW3fQFakD5qjOwavqpcwB 9wOyc+MTMt TRRcATz9U7VhVvl4QTJdkF iqYM4knEVwBUdcCj9nvYxy fDrxLO7iTHUearxtERJiqA 5nLWJvdHRv eUuzPU3tUEJyqflqd794Ki XaBRD5TYQaaKJaP5XbiQ2b QmPwOLPrPGUfO7DogFSwWR cpP016YSgj JeO2GKSkebWfG0VeLMEawX nnZkM3v1W7Sj1Ms0PiVODk IENvbXBlbnNhdGlvbjwvdG Q+RM89fw33 R5AjVlojHej2DAPcCDI2wC P1uF4oGBWtQNety0T8eFT2 L3GldbRmom4rv7edUUXxEW hkV45fiSDf r6B3GRWpnNU1BKWjrFqzTr DnaT46Hjv+STGjyFryj5Tf Fjqdx7ozs0ajxWo2MpJeTZ IgdmFsaWdu VWZ3p2XlZg05G21nUAtiIA YgRVToLLJiGQLirWdvpy5q yX1cMd2+UBCxdRF7mCJ4sX 5fUxSsVpW8 OAktQ811UeNwfABnFbtsc3 yva6lgiAv9HoGcWXCaegTx yPppRHF5p1WgOc24V6CvcO axg1PtZne7 xb05qNSye3T5lKU9U0AlPY KvkrcztMKoxSkdVB2aFNSq idyfCYGedX8pRRWnB4u7Oo UnMmM0CXyg F6MgqoX7MMDrlZWyWNBorA IOgE3znreqe9molyuyNcHx KSMaQHr6XPw5TIPjfAegOc JgZPL9XqH1 HJF6zOEcaK0ioMmidpfmxU 9wOyc+QjJxrPzbiWs4FT40 VT16eCPlt7M1lYV0W9XeII Rpbmctcmln bZC9AJVoOITjxN70Do4fcW ptZk1nMRJcGRQ2DVGtpBSu M9WbaK5gFoUjBHKnZFPyZ3 RleHQtYWxp D489JPrkPkB7GNDfidNvA0 XsSVSapPhxAkF8r8X0Hv4K cOJasVGeX6XxWUxljW5obB Ezp461DF35 UJ25dSXcv8P6yIA7D3NzRQ UlftklbftqnES5RTQyNBCv iG95Uy4fnShwTh6aARNfJJ W8IXDiyDRi E9PcnU7qNgOyTKUmGXDkK3 SyuNYaEJsxZ938VFtvIsA4 QNAipbPbH1MpDWXisCffHt J3v7Z5Yv8W RA4ewYLNGZYrIdiouGA+PH EzVPH0vUkhKSxpIBCfeQ7j ESUpI2o0HhReQuA6IGjlS0 JbgbL9GOQh wSYoOXIfcHEQcO7owidqm2 txirmrQoXyCAZhEZz2WXg7 RCLluJorDpZeSMT2RzG0GM E5dXNseC6c hExwiysdiZ8mQiz+RGlzY2 kgpzyvXOZmsXF7ID14KE69 Y7WmDffphJIneRJ+PHRhYm xlIHdpZHRo THrqHYQfMhDykAqcLR3cFo 9yZGVyLWNvbGxhcHNlOiBj k3qpYXByYUykOL9qmSxaF2 ZskZA4QMIv x0m4Yo45A10vV8UefEX+PG OuxMY2mMA0xH3gYnQqHsZ8 SOeaD248PnDruOFaErskl3 hfd2uhqPj6 PjGmCOPllyMhdEtnHXV6r9 DlJx08F66aSYcxRHTkPONg SIQfCJEkmVbzhb1kmM9aDl 8+PGNvbCB3 dDV8zN7jSlXbKsD0UEjhG8 35YhEvhRRpQcjhW32rZ1Fi dXA+APUmQuh2ZLLdqLvcWU 0ncGFkZGlu Fr6tSBE1CoSsHoCdWFxkQ5 DnXXBxxohiqrfkiQM0DSOh HHKirR07Kz2clTldHXYojG UFmU2zdnah s4jckgszJaKyKGVvTLn1QI f2UKKpvLuaBbKjJXS4TfZ9 FZJ0bNLksK5gvJpprgaexC 4lF9RcAAVu nvpzPt54bA0xLgYdWuT0IS luOyc+LXGeuqPoDXPkFU5w eLj7LQt8V5LuTtr8YGCfxH idJM7wdKBp FBqyYy5glKfwzVnlMX0dVA YbfxjeLPPlnB7zEMTodFBc cXwrEQ7dUSLitjaex485Jj SsNIW8CBXq pDUcU6AvwD7xKgGiEDHnCC MxI4ZgsMVeLAxhB621KGjw CcL9GYMjfzQyD9TyCEMwgW csGlV1a2F4 Fu6Qf00oTB07AI91cLQdp5 G4lZX1Q9RcUDLvfmoaujfw qPQ2BBJkRUNjgP86wXCqDO wkVw4ar4O9 w914XGHsCXFltW19Mp7vpB vdAPUvmFQOtL7oysrzr6wn wrbpTdPvSXHpBIa3WFi5TI FsaWduOiBs LEN0DrF6XLD5vXAbcJ3pgP hzzcuwzS1fWay+MDMvMTgv MjAyMTwvdGQ+OZCzNES3zW xlPSdwYWRk yQ3mRGIfP0c3JrGcHlR5RJ epH5MvINNhtqjqXu86aH4x EjCsHqQ0YUgkT5RmwbC9KO EwcHQgVGlt HCQ3B05mk8Y2QDLvCDFjXS R7wLW3iC3krFicxkrktCWa dDsgdmVydGljYWwtYWxpZ2 46IHRvcDsn DmGtSuA8XrRaCzA6B5ErIf wvdHI+TV13ESGjBI37U6Fm ct43zNFtwRKnt8krbVu6Nu EwMCUnIHN0 iNglULgvs5VeRPKjZt92eD 1tDlZebTZqu4brUOIslGRr jnjsJr6iFBGcLQDcqGozlL JtOrRum6km HDNgESggLL7aeErfU9MtoX R0LJSoj7g6Lg09H23vW7Mc dXA+GROwiDR5lNS3mS2wOH AwJSIgdmFs tNdmVYP8s6RdSl10D7FxdU xap3TlCzu6fu65sSB+PGJy Hj64W8YsPqtgnGO+PHRyPj d7WXMymLwz WC4iWb8ilChrVm1jRDLlVQ V7FUMmkJKfF1KicE5wBiCh WMGgUJVjO9SpvOBaGNyxL6 46IGNlbnRl cjsgdmVydGljYWwtYWxpZ2 24TERnyGbjFivPI1IWGON9 E7OvEuzotUO+RD43QTZuPN 48dGFibGUg y5nriJn6IpHhUJWyFNC0nQ ohYGxjx4CmSAFhO98ltMSv l6D3MPPolPvdmTNpTzLpfS L1vS1gHWks ijkmu1ovhzkgAvrjs5nzjj 81pJ32K24mMArcDPGmBGTp OJAaTRShzZthki2aoU8qZp 8+PGNvbCB3 cMM6cD2dPxObIbE9PTfjC4 00YtWdwWJsApmwJ09mH2Ka dXA+QDKsYgn1LTFftUwwHY 0ncGFkZGlu Ol1bAZH2BjUyLuYbGFzwP8 DzUJRalnybvugvjJS7YQZu DZEpsU61Sh4rpHfoRe6zFM NtXKO2OOIu pPOqF6BqiG1vPbHfBDOhRI DqZ9WxoVYmSLycJ642EDkd XqC7OSGowiYyA5CbVPSpxJ qyZhG9h9G9 Vj6TNJI7N5NcKgb3QWPhxB cbNB0gvPJfPHktCb1gdKrw bLlrYS7pYLPvydgkf096Bp Zle8zjAPHj iLWeONbhZFT6D34lq9A7JH PyHFHxQEO3rWV3tX4qlLud bjogbGVmdDsgdmVydGljYW rhWKjpD146 XITqgUruWdTgk9RgbHU0jG 0aLW60GX92X5DaFhlfhNGq bGU+PHRhYmxlIHdpZHRoPS cxMDAlJyBz sFabAW3pWu3vJXLeXMCorE ezqMAbEiIgq1kjLTTzGZua XO2zhXkoZ8RvxNN4INIyg0 f5Mz36M84q H0VdsII+WZUbcXL9yIR7mL 1sAwAvWqG5CIdzG554ByXi oRJyTzvng0fyi3smxAh5Em cwJSIgdmFs yIipFGK1f2MvKa41Q9VirB dxo0MaLyi4bv24zLZbc0W9 rAL7D0AzWZDnpoxtdSKyiZ uoIV0mTAPx fezkMBOgbC5hFXFuI2w1Mv PlKuC2KXbgD9ZdyvB4BGCy nWZbBIzdMNC7I91jf9T6FM MwMDAwMDA7 wDK7iP0tvKzmeshycOXfkJ qpfrYtqNllZWheCZxpZ079 FQXgzYgnPwV6AhV2J6KbRv y9RWJqsQjn ES5vrAGiCIiePp3diFeclZ laHQ5zZMKhmgqhg928BiYg FBX0TXTeiHJgE1UwzT5hMt AjMDAwMDAw M2JtjEJrKYgvB766CApdGk W7NKYsgxNvN0RiHNZmpRbs CdJ6w3W7Ko6PRRBdwCRmGL ltYWdpbmcg r4d6oI43lJLSo102ppSohY wvdGQ+KU48hs22X6UxGlmq Gaq4JAMqWRR3cBN3oN4cQD RtPMqhh5B6 cUV4W7SaxaNefx9op0P2v8 89OIT0ECLabDcpLJAtZCWg NxZov9HiRIByY24rrXUux1 H5KTPliKjy oPRnZzFxdJG5pX4eKSwmec cee0wdooanBsifo7mark14 oG44C73zXYqxHUDdGLLxLN GiLsQ7PFny D264CrZmoNAnBqweI67gF4 JvdXA+ZBBiAgx7GG86JbLg PjwvdGQ+JH96xb67uNK+PH DwHSH4qEvy YKott317FaNcf2ynBGNnlC MnGHumWVA5V13lf2Q8ZXBb LNWzUGP7lSO8kX8ewPgbmk huI6CrbNDw KlO2JZA0tOWrhV5iwObqch douU9mTcx+KScJB36IA1qZ WN78WV77F4UoXclujXFsdG U+PHRhYmxl IHdpZHRoPScxMDAlJyBzdH dpOB7dXu9cTJMjDHWqzTpz xBGzEjTqv4bqYPMwYViaKZ 3tsQggP9Jg mYK8HLXzu0y5Lz18J44mT7 JvdXA+UQNwfZW4zJV4aK5s QMXmGkO7DNdtD711EdYrsW KlKlqzj2fu s7zpdKy8ToS6YKZminHluF ylREC4h7GsPx10X97mJUhu ELAdZJI7OkKrFMNlvDquaj 3smG3fMs4+ LWTclCQ3nSF8kT3yREPrFu E4TZjwW447OnRwvAYyMqbm A31mD7MuuOR+KTGuLgn8DC ExnAzvVX5t eXEyWQwrOe6rRZO3PxHnVk FgHPsiP6EmGWDyrkorxdjh zBR8FCYdYIJreK20Of7rpG ymJs1gQVEg QVT1EKFwmGCeQ2GvrM3dAm BdYKXaKCKeV5UxjMDpWJyt R179LLffQbW8MHLlbiXvT5 FsLWFsaWdu JjE6p0U2Pm7Um1ZfMS78KB 58pNSvz4C3eVU4P5AvSCJx vtklxursrUM5VURpYMDvhW 47Ia5ckOye Su0sVRZyEUS0LBAtyJWrB7 ZreK7zSoUcGLBxJVHjB3Yi gQEfIIyxM824ELgqSrK9JM OhyhAiH6Vz CWXhhLhgZyE3o7W9Na6RK8 V6S1OkDqr8ZWBsjYwiNY0n lMZuZOamPk8azIowoXafDZ 4wNTBpbjtm k905KxYxm1zlODHywDTuKN wlZNF3C75mh3Q4EASiBKXy ZGX2nPO5fY4bzEutcqhkhY VmdDsgdmVy oBmeIAmsAQjrL785GKMqmO hjNpHts7LcpTX5eA6rJO05 GA30fTAny4Z2rTT4J1ZaWY Rpbmctcmln qHK5BXSdJCNttE27Zg0ivM zsWu3aVJMgXXZ1RNKkaVUk Q1SxiR4aQlFtWVBgEDYzV4 RleHQtYWxp Y735CAwnCwD5ZZFyfvHyD2 ZtISSewUjmGuL2q2O7Gm9U vXZdPK50CI88V1IzKjsblS FibGU+PHRh YmxlIHdpZHRoPScxMDAlJy GqaOynPN4oQj3dQUFsSZGu yRujgMFcBxPpl3zxHHCyBV esYP3rrFpd E1YycIZ1YQHsf4v9Mu21G7 1sO3LupMM+HWVhzKM0uZV3 cG0bBXShVpZ1ZWveO014Dl RvcCIvPjxj g1gaq6eqlPu7QrU8PACfgg HdiYznMQL4v3MwMk99E56y OXowHKNbUDY6EiIqRGTwoK gsya6iiY7x Ii8+DRRhiMT2tKW4pA4wNU IuJsA8JFxvO730PtPzkUXd CqkuM07cK0HsnUS+PHRyPj c4TTPysUyr ML2khPLaSZuzLp7xKBY1Ei ZrWcClMPdbS1KnMMHmdsjh utfijEL5KUNpILBapF74Ox 9udDogMTBw nEJBvQ7hvtmil0wdtjdcBd HfHRTwIVc9EWq8BCBpnDyh StZsCDD4EoE7VLL5xEVcmM 1hbGlnbjog lY2eJac+GgXxKxhjXFI6P3 ItWvg0CD79T0NrCnp0EHYj sNjvOW4maCPfNLvyCc8eeG dwvBudSQ6c TMTxjaqco023DcDpPAQ2XT FwpWAeO2HgiO7dWbLoEOFd XJMqP6OhaDJtYZkyS395VC hiYeB5RINh tpWwL6ZiKIItaDhfAgS0f4 X5Pz7JmkDsAAYrPrebHSRc lWAqxtGsU9vhsDMwbfi2ii rqv5Unpflp tWFybMJfCAxktI8ckHzcrJ RvawDzbK98TVC7N8LoUrm5 OQWifEctAB4hxDTrHSxzPx 1yaWdodDog FG6kCBOrhgatf891YbPtMW S1GULaeGOeG5VqcY5eAxRv HJSdHEElQ9GvqCViDFbnB7 64IUsaMzF2 NGSbzfUnY5NsJRInyGinWk Z8l7Y6Ct0AMhE8P8FoNumt dHI+LH34DHBmLA40nVVybL Vda6vxiAt8 OtDwNQWvYSE6sSszNVkyi7 AaXCJeQ36aiMIxw8H7ZKVp lTvecKZmJeRbbRN1bB2vJZ lrgtogg5nh etbnKdg3uh78oBUpk1P4zY J2AhAeYLHbgM7iWQitFzU4 EHUcYiYsxA73gXHoQUaaPo 1yaWdodDog OK5pAUGxiscey121KnUga6 ugMVMphRWdWZgtMDY1B99c d3K3HGEyALOeVVV6KhDpv2 jyg6CjKCzr M1EiSVZcFFc7UXl7ABUahR wzMxIsNTF8FpE5QAG7sCEm sS8hyOmvlyiwwH4aWpr+UH JpbmNpcGFs ZB30AA84Y6MtZrhhaTCzzA U+PHRhYmxlIHdpZHRoPScx TZQfVpJyiSlhIV4mFb5zTG VyLWNvbGxh bGMjSfZii8ghQEDbWOusNZ 0rwKxuK7SovJK8QPRto6t7 Wc04R63mP0XmxRH+PGNvbC D4tSR9vL6n YRHtVrE4UZquL388ZxHnsH MkHhhqw5atb7hpiJh1TqX5 NIGoajTcrVbzRBL8d4CeDe 80P70mQIsu BNStIWC7XwKiEOEtxUfoeh 9poD0oNf4+YITybQX4nHJ5 iY1sSBMyTuK1WJhrS865Bw RvcCIvPjwv W46nD3FxiNI+BVVvPfu3GU WzkRtlJA5saSIrWQarNa1f PMX5YsAnJuRxUYcaA2YnOG Rpbmctcmln jVH4WICuYGXcqA04Ty8bwO yxIOAgyJZZnJ8vgtvzf8zo oqjaJjQdNXXqCGk7GJo3CJ FsaWduOiBs ZYQ9QuI9IIM8hVAnmU8lpX qphveiiP8jGol+UzYzLjkx IPI9I7ViDjx4PWUyhZruWK 0ncGFkZGlu Hx3xhFeobPyoWO8uGRLezt kpp965CvEoCGP2CNNsdPUz C2PetO1hMoWbVWSdWSPrS3 RleHQtYWxp F551EShaMnV6LNOtaeSoF4 UbRXZfgVzlNzU7v3Z5Zb13 G8CkOot3ELDaaDoyHU6epR DtPGmfYr8g nSdgvDkhOF8yIXCwaxvjf8 21BkLvPZW6BCVmcYCaQ4Fg qY4fRaIzKYIdBIKgN1YdjT QyTQbjY197 AYwjHgQ4UISomcKvL4AcUS OtnTbeJhA1q6O5Aj8KgFXo yO8fe5ZmyJ4btSVhoNHqJA QgcGFydCBv LiUnrFcgjPG3ytlfnWFatu QvzKEnFSqroU0klOhlyVPg bnThaE81ZWR5I3XhEqd2ZR KzpKkyHY8i iDKsQFtjQx8ysAvomRlsEV 4rXCDjervas241WbWwNVL2 EYEqeERsF3PhyB8oBqBhNG BmZOIaM7Wq mQJwIOjoU144XBjoOuA9IJ PdecEuO4VtHQDewMvhQhA5 l9F9Yg2RyS6opGcxaVL+PC 26kh31E1Hr GyicZxa7CAPkJJR4jUE1qU 8zXGDuYLvfn6A9oKT1X0Ew nzQhcq4mf2ngELCfESdzL1 0xdSFlt1Y6 QZVsdNX9OCNpsTbaTxBroG 93Oyc+EMXgQlv6HYLmrJot JZ9rPJBmEWRckdzdoSYbiX scKA7gXDHt ukovQQOypX1uELSfB7w4Ll ZiNyV6PJedR0QblgZ8GQFm yQEbSLFrxHKRsK4ggysyr2 xvcjogIzAw BRDxKGlsNUVqI6VfeV4tEt LoCFDyIGEqC6EwlCJaBKtr B405UFhoBmU6VWMveeBfH4 FsLWFsaWdu JyF1d2D1Fz8DNEElvdIndk y1R7UcYjwceGN+TJ59PWJo CR95wYNouCDuy5yaiFk6Xh EwMCUnIHN0 zMkkDLnmw0WlGGDvK91wrT Jqd5N2EPZmkTiwqFMwMfXc cTA5eS4pMPqpywfyp8wfax tqLsnzd9eh ww52uF16O43vWPniIQHxDU XbHPEcZLObtLgfzy2htJ4w Ii8+OMHigAT9iLY4nZ4iZW XkMaW8UWih P398GzKboMNoNlgkn2htj9 nxeIc3CdG5IZVcifYiqBzk FKB2p8HpJd92S20sNCoaNE RoPSIxMyUi FCVygLnbnh0pxA0pCt0+PC 2ix2pekv04oZ86cAL+PHRk DUA6xYloJHizPYKztV1ePC xcStJ1UZYi OpXekE89oVPsVUnwCs0fhE feyCzgVZ0fGGLcdvpcp239 XwHyDCB6SNDmyAHxG4NoqL 9yOiAjMDAw SFPzX6PdwAPzGHpiL579LD zgQxG0EIVixtDjO9VeAQMs eKotJfF6j0Q0Es9HPIUyDQ hYQTwvdGQ+ IOGjVIP3hSagDCplAHYntZ 3pZEMaX7r7YyDrQvU9EKya E3ZbevL8GHLmvKQdOKctEP I5T94gp9A8 BSXcOMCqPTM6bPF4mB9tjM lnbjogbGVmdDsgdmVydGlj XDdyONooH605ENIeaUeoBa wvdGQ+PHRk GYF1gKhfOTdvVYTosY5hLS VhU9d0XqRpGsN2FHjvL1Dg mwT0JLTqwANzIFhnJIY9E5 0jd4U7YDLl DSRyXEM4aDD6cX6ezAkfiz ogbGVmdDsgdmVydGljYWwt GMrcQ442WDDgmCmhXf57zQ VyIGFuZCB1 bnNwZWNpZmllZCBvdmVyZX oebsEyl39iy5Yzk5SnWH55 r4WeBK9cxbZeSX64kwHvml Iyd7I0tJYa ouogdV3gmYrivZQggkKjwC 99IAQ6I9UvSur0ZDNbiKhp QJ1qqAXaPLxiNb9fdHilwI ybVZ0yWVQg ggdza699AkPwKAX9KIHhhV CdC8EexR4uWxVjEHTzYSEs Q3FivTNfPGxvD750XAnhTx F2UDYxlfUe C4YeWGWcrNoaCaZ5x4T1Ea 5EdG9apVvifEE+UJ08bl68 T7RaLwncBuu8ZFKqPFL1gK E4zU2pBHRq YYsvb4V8jHI6I7VyghHimf 7zj4wkHFZeOVntY97wjFWv c0U9CRYkgTN6CFOthWvoXy DtqC57Jgc+ CSHebAvjo4RqQxloj7ejn7 nvjSr3YkD7OMTcujWeaYjh TMJ2e9CeDv82V04uSZpdDC RoPSIxNSUi BLJheRzbox6yoG4oZm2+PG SchNN5pLS7hP8iLOwjYvI9 LIicI985FqMwvIObAiiej4 wpz6mpaFo2 ZfUeULOphyBgfJdrXNN9n6 EmXy55Y0VagDwcc2OhHsw1 mb60wURwb6U0eSI7W7BrKJ RpbmctbGVm zTonHX6aAKKdmmhuPLBkuO 7eSGVfU4s4YxZkJzP0BSzc R1ErzuL8NEQqxYJsTWveEZ N9M73vn2K3 KBFsFGWvQCV1cJF2rJ1ztG lnbjogbGVmdDsgdmVydGlj RCipTPinP491IOCftYtgFz y5Yf6DOIzb dGQ+OQCvOHY1cQanGDioIO XkgU8sWZSvK7v5KzRcVpE1 CKrbA2DbvtH5CYTncDEwOH vkTBS3O27d t8M6ULHoLGRiZKA7nVF6nV 1hbGlnbjogbGVmdDsgdmVy fTvvEErwXOytH587DPFotZ snPjwvdGQ+ HNEyETL2xCtsWEsjNNWrxM 0xBYQoL6h9AtBhHqC0JAzg P2JfjaE4ERMqpXKeSMrtVK O9P79ld4J8 GNKeVAQbOPH0iQX5hV3blF lnbjogbGVmdDsgdmVydGlj EVmzPItfO238HPWbqIjjWk IghKp4sUX6 BBGml62jZPEqHXAeadF5vC 1tCFCyVNNuuAYvrqJ3uOmf dGQ+UTGkREA7uQcrTIvpJP JtyR7mSCSj W4d9NsAiOuY4DCcqQ1Jpjh A2LRAtuSJoFHyhSRW3O45k r9A8FKGwBYCuEAY3mVV4xX 1hbGlnbjog bGVmdDsgdmVydGljYWwtYW zcP133FSDivGvmSvSjpwXs HI48WF67M7XwMwzkxMMihH U+PHRhYmxl IHdpZHRoPScxMDAlJyBzdH wvLP5aIx8eFGQgZXBxdNjf hIPfSlVsa8hxQNAwBNpeBG 2xvWltO2Hn jXI3TUHxa6a4Iy80Z12eY2 JvdXA+WALtqVU6iMF4tP8y ZPEcQqL1AAooT992XfNgeS VnHpbpb9up i9wzeBq1XdN5IPAyvwSacN qcGXQ7m9NnTm46A10lVDtf AAKpAZP9TpOtFLFokAyxvv 2nxJ2aRv3+ RBEwbMH8eQA2vV5pYCYcXj I8JNxrJ122UvJvrJVqHzjv Q81qZ7GypAL+NIOjBys3WE JeyRfiPB5x lRNqWDznWb3gZFW8BmAfTv PgAPdwO7QnAERetvytzgfi eHF3BPXsEATtvP34Vd7umW ogMTBwdCBU iT9yzwsms1ffgusqLnRyVQ IiTGw3NQa1XKWpvRnfVxZl QVL2CeX2LZG3gJNwmE8jcO gecqaqkD8g Oyc+SCv4FmY9A2DzNfd9GF WwwJfyVJ8bcMNiBQtbSj1b mAejcLiiQZ5zOFViswriy8 88UrAgMZG5 PJKpjDZjE4MalX8hRcUiYQ ArKXIrE9ZleVAiTDomB684 TFlmTwO4ZFYvouTbC7YmWY FsaWduOiB0 a3G1Vq72S6UcCbc6HRIugK tgDY7dyPMiKJvqWt2bdPni wVffGP3xAMLaizvrm781Aw SsGHB1MTOc pDLzH8EhcJ2gYlAuQZOsPI BtY7WyuYKtZDqkO040TQir EkQ9ZCSucwRyK6BlEJCsyB kmKfG3s0R4 Ih1NpDJkrOidcxGuQ2Ixco k3gLBti88tUUZjltJelvCg gDVap7GznUH0DM56OA55cR Cam4W2lNJ0 M4YfOVKvovtnsmhqdRT2LN TiWXIsrM07Kr1svRjuDBDs dOMKhG9wpclqq9pafrcaHd AwMDAwMDt0 CAy1OLRerLbuVmDoVZR4Dp W6AVZ2sVBhgR2ybUxthxtz vF3yZre+KemoQLl5F4EuFk wvdHI+PC90 KGUeWF44uXWqcMMfh2vsqW n5LhPbEZXlAVN2vLvbKDxk u9PmCJZoL10gxUPcy2X2RV NvbGxhcHNl QmGxuAM4wI7sHKoxwmmgx8 stazbaSkehs9torv09cW97 I22nXFbyEHNvTKFlGGRxQD FiqEeqoy9t rP5nXa2+CXEsiOR8vIT6vS 5pOUJqXcU8ZAofL082SxZp yEPbPrglc9pvv2hwfHk9Ch T0GLCeiiLj rGpvIML6c1SdGs17F20jNA dpZHRoPSIxMyUiIHZhbGln kz0mdU1hWr8+QY5di9ksok 27oJ33bIX+ WWMvLNQ6cMxuMTdmRBJxbY 0hWUnnPzY3FTVcHuZwuI43 jCIqZTfkRc9glIdwgGktBH 4wNTBpbjtm o508AjTcQCP9PEXhaHLcD3 AsvA3oFeIkMKDdYOPqM1Yw uDVeVYdtW194RBjqNtI7ZN LxqpDkW8Ke GQQgsDvfKbE3y5B1Am1VBA LhGTWdTC91QH62pZDun6G5 wMA6J6TsIECdqdbzphgayN J1ZUEcVZFl jF55Jp1cqLpvTUUqhMWIrL 2xkbkwh4fpugwkKqLrURSm OKe0QHv7RYKgqWnwSrKsTR C3HjN4JTU1 pKUtkM5ucSfimvmwxX8uEf c+SS61OO32eJGes9M5eZJ3 L5BjLBFegxdfurdkuJC7VZ BvRFZnfT59 Fr8ymKbeQLMybGOYxG7mha jbr4ljlvlaSdGsPXJwOEp8 RTs8PNSsvEqzPoTnNSZ9Vb N6LUW5nRKn kD6guAprdqbbpI0qUzh+U3 LqSRVzESReTFTgRUR4c1Yo PT1oPX8lskznhAOktdE4mV QwrUkgF7Iy k3Joo1RwvJUyDL0cYCMuZa K6zQLmGFt8WGUvJHlrI3H7 f8P2L2OhIdm4UBHmoQawSL 0ncGFkZGlu Qk0rwBpojEvzGG1dFOJano fom926TqGfZJE7WRAewHQq X4WhlQ6eIdMbNZYcXSXuO5 RleHQtYWxp W628ESbnBnE6ASRxclCfS5 YgZIHwtGgdNdZ6k5Q1Bu9D dP9aeIwgtPV+TZ23aw26O0 RhYmxlPjx0 MXUfOET5gLI1eD9sZBCbWB hup2Q5mOR4N5AtumDexe4f w8okLUMvVUwpI15ezEIdu6 S3YNXmpNV9 PYUunUkoPaRrqO96Rxy+PG SndEezr5RtYaaof9gof3xn zUq5KzV0BXRkupXjqSgwNI B8e6PcTs23 C58zJLtxLVDjFMUmCIWsHX UuiKmjio7coU6cVj0+PGNv vJO4eLZ1nN9mTFhaInS3EZ fdY919IgSt vDQrNvbmw5wqn7heeBi1Yq DcSEVhabTnzXoqZXD4n7Nr If73A9YzyWpma0IcXbt6ra 61kBIcv7G2 gMI2M0EiTPFirxqjdWQygE hsNL0rEQGthckxOIUrtG2t JZTmK3a7KpFrWtC8YYumT2 UfxvI2SBEg rLSlSPzoBVD2V41jb4M3LS YoFPMjIWJ4yPX4dX3kxFrd bjogbGVmdDsgdmVydGljYW peZPisM477 WOEjoAkfDpe3LX5rBYbcxH Q+KQAgLTC7jXdmNNffXVUa eW6dPKLqK1n3XePrOdX3SX rjO2ZfpzT4 PNJaxBRdODkeIBK6P83aj7 T1CKRxEPYuCPT5uPW2aN5c bGlnbjogbGVmdDsgdmVydG ljYWwtYWxp E382UYJdoSfrChnmwRL+PH PzFZG5iVaiSJpiJBAnhP6q IFItZ9w0YhKaOrA9LEdnU4 OnzgO0FSPc oRIjJAloVBQ2A10cf4O4DJ QoKYUxBIP4iUT7iY1gkQuo bjogbGVmdDsgdmVydGljYW vhDOdyB427 IHRvcDsnPkxvbmcgdGVybS EpJ9RtdzHbqHgraMGqGF5w MWJcvLukw0RyoOfckdRcOY 00IM23kJIm n8D6zLX7R8XpQBLtctapgs mjwKK3VSJpMARvoC65Fx9n mTopSJXxzCHFfQ1vmpdzl6 xvcjogIzAw CLSuNZi9FJu0GLPgoPswAt VzYUH9NqX0QYP5dYPtlH9s qVgykelmoN1sDpf+RmluYW k8H1NtQxwz dHI+RF09GRNlAT44zECwfL Oub1ynsBm9JrCeDGQgLGZ8 zRulKLkpn5NtBQQhYh23jS 9tOjFweCBz f4szJFWqnWWultjcBa0aKN BnBPPukUwezLTcNdMjy4tq VNPyORfcTO3mrUnuI1ErzT J9OVUkn7a5 Iz42I15pR0PzmTN+PGNvbC I1xEK3mV4wXTGwVDKswrFq fBpoMRJ7j5OdJp55S7AgnB vyw7UzHgw2 bp85wYZ+EVOhTu87I8RlDc wvdHI+LCYdNdl5XMDpySjt AJ2zCe4bxQhbFs2cJLKeGX B9SOIljIYu R3LpzF9lGvHpZCWpSDIfI1 ShxENqHEyuY870OKSmfvLg cjsgdmVydGljYWwtYWxpZ2 46IHRvcDsn QwTGY9ZSTPQAYTcvvIT+PC 19wb09P8KjBevoWrvkuz9+ XEHtLv94tLZqeXRyq9gfaL i3BiHtLVAc CBA9kZkfMRkbf3HiABPxF2 9mkOTqc6M5XMJyoCmquXHa AiMtcWX8iP8qPApnhvlna4 hvdzsnPjxj p7pyfa81tQ74R13mDPqwWC LtONBaAYVcRlV6OHgyL576 OuLueILuAakhU71tE8GxgN A+PHRyPjx0 OAZciTklMP3hoKDiZXadMx 4dNYY5JlToCjElCQebU7Dz BMLpgtfmwvnvxIC4OPEgAA DynY77Rm7p mEavSYUctDRDiM6rzofhn9 jcjwljFxWmOVFiHEj4OOk4 UXJmtJmmByHkFBY9FhA5NJ B1gQRhtJ0b vIkvjtfmnS3uPzi+Tk9URT ogVGhlIGNvZGUgbnVtYmVy PUCcb9vbjoCfDC9xiKEnJG MgdGhlIGRv L6VzUQ48EYIaMGyvI08zh2 tcHOMyXU8sbhPsjh2bGGP0 qqSflV6wxGxeOFMsxKhlvh QncyBjaGFy fN7bWF44MKCyxjalkJnpCL 5bwfDrsKy4HLIkeIKqi6Mn zESxklZgMFAdlq6zTTGlFX Smr1Fxfvvt o28vgGooetIkwGS1GJIyfU VhciBhYmJyZXZpYXRlZCwg i4QyvtOcjPu6ROjdWVVkbR ucpZs9XHOa TbZkvqKxkXM0FOAgkN8nnY 5lcG31F4ZwNsdhxOW+PC90 NLTgOI10AfUzTyxipu1+PC 35eh14N5St ZbxrVhs2ROVpRCR4hVW6yO 1bZPIlSWnzb4F1rSK0J6Gn qsOgjs7eb5rzQFBoPHljG0 3ugRAuo8S9 FCZsxXE2LQOtdKngTfEmlR 93Oyc+WZLfwLutt4KeFika z0fik4qntBh0UrOrDACfzu FsaWduPSJ0 n8MhRq20Z66sUDosVFXdOR K5LBNyAGHmfSrjui3jcD0p Ii8+QA4ux0walo39tI46pJ I+PHRkPjwv dGQ+XMHzKIC5dJsbVMigvR VgSLphLz2esWuxiJvmNA9g JWTkozfjv770FrEjDLF5CX GmdSMhI9Gg yZ4qKoVmGWWhXKUxM1RfkM OoAJpjD616IXabKcU7DZTm zrUyU6QiRXZtoCtoJgI2s6 W8Wb8Ll3Ul HCOTnCawPWChd2zsmwvhUy EePYs6B3GlBhmwwIM+PC90 RPQlMC78vPMhbELjy3prcH k3ZnZfAMUs OIC3zNcgVTlkl7XkMJUoB8 5jmYXty3R0DGJgwLbkmWOb YtArdNO8iM5qERqwgspmc6 hvdzsnPjxj n5lhzv27eP87U93iFUvgNL DkUXQ7DMRhQMEjzQbsnr7b dR6xQs3+EGZuwZB3yRL5eP 9aPTXbVbP0 UXubW784AzDpyZOsWbjeQ8 8jU3FqiFY+AVGbTne4WN65 J6HjQwr3QQFwnJkaHG9oGB BhZGRpbmct bbuibKB1GPVxDDLquU51Ar 7dcAmbNZExwXAXsM0ekoxc a2pjeticIwGrSGThJRd9GW a4SBYcmQsf GuVvSZA1DhY5YKN5xQKdeL 9tsMlhvxectS5cVkv+RGF0 JDXRCDOlRIjqFKIgZjD3Rb IwMjEgMTE6 WDDuRN87D7BvHibukMG+PC 89HWOtEE51FiYbUxftgn9+ NN7bnO7wRh== Normal [facility] Discharge Instructionson Discharge Instructions [id number]#[id number] [id number] Normal [facility] ED Clinical Summaryon 2020 ED Clinical Summary [facility] ? Urgent Care [address] [place] [address] Clinical Summary PERSON INFORMATION Name: RONI JIANG Age: 65 Years Sex: MALE : 1955 MRN: Acct#: Visit Reason: UC - Wrist/Hand/Finger Pain or Swelling; RIGHT HAND SWELLING Arrival: 06/25/2020 12:49:51 Discharge: 06/25/2020 14:01:00 LOS: 000 01:12 Check In: 06/25/2020 12:49:51 Checkout: 06/25/2020 14:01:00 Address: [address] [place] [id number] PCP: SYLVESTER BUSTAMANTE PROVIDER INFORMATION Provider Role Assigned Unassigned Osito Lopze PA-C ED PA 06/25/2020 12:55:25 Tracie Mcrae CONSULTING ACTUARY Nurse 06/25/2020 12:57:30 VITALS INFORMATION Vital Sign Triage Latest Temperature Tympanic Temperature Temporal Artery Pulse Rate O2 Sat 100 % 100 % Respiratory Rate Blood Pressure /80 mmHg /80 mmHg MEDICAL INFORMATION Medications Given: Allergy Information: No known allergies PHYSICIAN DOCUMENTATION DISCHARGE INFORMATION: Discharge Disposition: Home Discharge Location: Home PATIENT EDUCATION INFORMATION Instructions: Wrist Sprain, Adult Follow-Up: With: Address: When: Return to this practice , only if needed DIAGNOSIS: Sprain of right hand Patient Understands: Yes - Patient/family/caregiv er verbalizes understanding of instructions given Comment: Normal [facility] ED Patient Summaryon 021 ED Patient Summary [facility] ? Urgent Care [address] [place] [address] PATIENT DISCHARGE INSTRUCTIONS Patient Information Name: RONI JIANG Age: 65 Years Date of : 1955 Reason For Visit: UC - Wrist/Hand/Finger Pain or Swelling; RIGHT HAND SWELLING Arrival Time: 06/25/2020 12:49:51 Primary Care Physician: SYLVESTER BUSTAMANTE Attending Physician: Gordo Limon Comment: Patient Education With: Address: When: Return to this practice , only if needed Hand/Wrist Sprain, Adult A sprain is a stretch or tear in the strong, fibrous tissues (ligaments) that connect your wrist bones. There are three types of hand/wrist sprains: ? Grade 1. In this type of sprain, the ligament is stretched more than normal. ? Grade 2. In this type of sprain, the ligament is partially torn. You may be able to move your wrist, but not very much. ? Grade 3. In this type of sprain, the ligament or muscle is completely torn. You may find it difficult or extremely painful to move your wrist even a little. What are the causes? A sprain can be caused by using the wrist too much during sports, exercise, or at work. It can also happen with a fall or during an accident. What increases the risk? This condition is more likely to occur in people: ? With a previous wrist or arm injury. ? With poor wrist strength and flexibility. ? Who play contact sports, such as football or soccer. ? Who play sports that may result in a fall, such as skateboarding, biking, skiing, or snowboarding. ? Who do not exercise regularly. ? Who use exercise equipment that does not fit well. What are the signs or symptoms? Symptoms of this condition include: ? Pain in the wrist, arm, or hand. ? Swelling or bruised skin near the wrist, hand, or arm. The skin may look yellow or kind of blue. ? Stiffness or trouble moving the hand. ? Hearing a pop or feeling a tear at the time of the injury. ? A warm feeling in the skin around the wrist. How is this diagnosed? This condition is diagnosed with a physical exam. Sometimes an X-ray is taken to make sure a bone did not break. If your health care provider thinks that you tore a ligament, he or she may order an MRI of your wrist. How is this treated? This condition is treated by resting and applying ice to your wrist. Additional treatment may include: ? Medicine for pain and inflammation. ? A splint to keep your wrist still (immobilized). ? Exercises to strengthen and stretch your wrist. ? Surgery. This may be done if the ligament is completely torn. Follow these instructions at home: If you have a splint: ? Do not put pressure on any part of the splint until it is fully hardened. This may take several hours. ? Wear the splint as told by your health care provider. Remove it only as told by your health care provider. ? Loosen the splint if your fingers tingle, become numb, or turn cold and blue. ? If your splint is not waterproof: ? Do not let it get wet. ? Cover it with a watertight covering when you take a bath or a shower. ? Keep the splint clean. Managing pain, stiffness, and swelling ? If directed, put ice on the injured area. ? If you have a removable splint, remove it as told by your health care provider. ? Put ice in a plastic bag. ? Place a towel between your skin and the bag or between the splint and the bag. ? Leave the ice on for 20 minutes, 2?3 times per day. ? Move your fingers often to avoid stiffness and to lessen swelling. ? Raise (elevate) the injured area above the level of your heart while you are sitting or lying down. Activity ? Rest your wrist. Do not do things that cause pain. ? Return to your normal activities as told by your health care provider. Ask your health care provider what activities are safe for you. ? Do exercises as told by your health care provider. General instructions ? Take fhii-tmg-xfqkevn and prescription medicines only as told by your health care provider. ? Do not use any products that contain nicotine or tobacco, such as cigarettes and e-cigarettes. These can delay healing. If you need help quitting, ask your health care provider. ? Ask your health care provider when it is safe to drive if you have a splint. ? Keep all follow-up visits as told by your health care provider. This is important. Contact a health care provider if: ? Your pain, bruising, or swelling gets worse. ? Your skin becomes red, gets a rash, or has open sores. ? Your pain does not get better or it gets worse. Get help right away if: ? You have a new or sudden sharp pain in the hand, arm, or wrist. ? You have tingling or numbness in your hand. ? Your fingers turn white, very red, or cold and blue. ? You cannot move your fingers. This information is not intended to replace advice given to you by your health care provider. Make sure you discuss any questions you have with your health care provider. Document Released: 11/28/2014 Document Revised: 03/09/2018 Document Reviewed: 10/13/2016 [employer] Patient Education ? 2020 [employer]. Medication Information: The exam and treatment you received today in the [facility] Emergency Department were for an urgent problem and are not intended as complete care. It is important for you to follow up with a doctor, nurse practitioner, or physician?s under water assistant for ongoing care. If your symptoms become worse or you do not improve as expected and you are unable to reach your usual health care provider, you should return to the Emergency Department, we are available 24 hours a day. For those patients who have received Radiology results, the interpretation of your X-ray as given to you by our Emergency Department physician is only a preliminary report. The Radiologist will review your films and if there is a change in the diagnosis you will be notified by phone. Please make sure you have provided a working phone number so we can reach you if necessary. In the event that you had a lab culture while you were a patient in the Emergency Department, you will be notified by phone if there is a need to change your antibiotic. Please make sure you have provided a working phone number so we can reach you if necessary. [facility] Emergency Department has provided you with a complete list of medications post discharge. Please inform your soap drier operator/provider of your visit and for further instruction on these medications. Any specific questions regarding your chronic medications and dosages should be discussed with your primary care physician(s) and/or pharmacist. Medications to Continue That Have Not Changed Other Medications aspirin (aspirin 81 mg oral tablet) 1 tab(s) Oral every day. atorvastatin (atorvastatin 80 mg oral tablet) levothyroxine (levothyroxine 75 mcg (0.075 mg) oral tablet) metoprolol (Metoprolol Tartrate 25 mg oral tablet) nitroglycerin (nitroglycerin 0.4 mg sublingual tablet) as needed chest pain. ticagrelor (Brilinta (ticagrelor) 90 mg oral tablet) Visit Information Visit Diagnosis: Diagnoses This Visit Sprain of right hand (S63.91XA) UC - Wrist/Hand/Finger Pain or Swelling ([id number]) If you received any narcotics, sedation, or any other medication that causes drowsiness for the next 24 hours, unless otherwise directed: ? Do not drive a car. ? Do not operate machinery such as power tools, lawn mowers, drills, sewing machines, or stoves ? Avoid alcoholic beverages and drugs for allergies, nerves, or sleep ? 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 Yesterday started having right hand swelling. Allergies: Substance Reaction Symptoms Type Comments No known allergies Drug Vital Signs: Vitals and Measurements this Visit (last charted value for your 06/25/2020 visit) Vital Signs This Visit Temperature Temporal: 36.2 DegC Peripheral Pulse Rate: 70 bpm Respiratory Rate: 18 br/min Systolic Blood Pressure: 140 mmHg Diastolic Blood Pressure: 80 mmHg SpO2: 100 % Oxygen Therapy: Room air Measurements This Visit Height: 177.8 cm Weight: 94.80 kg Body Mass Index: 29.99 kg/m2 Problems List: Problem Onset Comments No Problems found Major Tests and Procedures: The following procedures and tests were performed during your ED visit. Laboratory Radiology XR Hand Complete Right 06/25/20 13:01:00 EDT Stat, pain, swelling, Allow Modification Per Radiologist, Transport Mode: Cart, 06/25/20 13:01:00 EDT Cardiology Viruses or Bacteria What?s got you sick? Antibiotics only treat bacterial infections. Viral illnesses cannot be treated with antibiotics. When an antibiotic is not prescribed, ask your healthcare professional for tips on how to relieve symptoms and feel better. Usual Cause Illness Viruses Bacteria Antibiotic Needed Cold/Runny Nose NO Bronchitis/Chest Cold (in otherwise healthy children and adults) NO Whooping Cough Yes Flu NO Strep Throat Yes Sore Throat (except strep) NO Fluid in the middle ear (otitis media with effusion) NO Urinary Tract Infection Yes Antibiotics Aren?t Always the Answer www.cdc.gov/getsmart GET SMART Know When Antibiotics Work [place] Department of Health and Human Services Centers for Disease Control and Prevention December 2013 [facility] Patient Handouton 06-25-2020 Patient Handout Patient Education Materials Follows: Hand/Wrist Sprain, Adult A sprain is a stretch or tear in the strong, fibrous tissues (ligaments) that connect your wrist bones. There are three types of hand/wrist sprains: ? Grade 1. In this type of sprain, the ligament is stretched more than normal. ? Grade 2. In this type of sprain, the ligament is partially torn. You may be able to move your wrist, but not very much. ? Grade 3. In this type of sprain, the ligament or muscle is completely torn. You may find it difficult or extremely painful to move your wrist even a little. What are the causes? A sprain can be caused by using the wrist too much during sports, exercise, or at work. It can also happen with a fall or during an accident. What increases the risk? This condition is more likely to occur in people: ? With a previous wrist or arm injury. ? With poor wrist strength and flexibility. ? Who play contact sports, such as football or soccer. ? Who play sports that may result in a fall, such as skateboarding, biking, skiing, or snowboarding. ? Who do not exercise regularly. ? Who use exercise equipment that does not fit well. What are the signs or symptoms? Symptoms of this condition include: ? Pain in the wrist, arm, or hand. ? Swelling or bruised skin near the wrist, hand, or arm. The skin may look yellow or kind of blue. ? Stiffness or trouble moving the hand. ? Hearing a pop or feeling a tear at the time of the injury. ? A warm feeling in the skin around the wrist. How is this diagnosed? This condition is diagnosed with a physical exam. Sometimes an X-ray is taken to make sure a bone did not break. If your health care provider thinks that you tore a ligament, he or she may order an MRI of your wrist. How is this treated? This condition is treated by resting and applying ice to your wrist. Additional treatment may include: ? Medicine for pain and inflammation. ? A splint to keep your wrist still (immobilized). ? Exercises to strengthen and stretch your wrist. ? Surgery. This may be done if the ligament is completely torn. Follow these instructions at home: If you have a splint: ? Do not put pressure on any part of the splint until it is fully hardened. This may take several hours. ? Wear the splint as told by your health care provider. Remove it only as told by your health care provider. ? Loosen the splint if your fingers tingle, become numb, or turn cold and blue. ? If your splint is not waterproof: ? Do not let it get wet. ? Cover it with a watertight covering when you take a bath or a shower. ? Keep the splint clean. Managing pain, stiffness, and swelling ? If directed, put ice on the injured area. ? If you have a removable splint, remove it as told by your health care provider. ? Put ice in a plastic bag. ? Place a towel between your skin and the bag or between the splint and the bag. ? Leave the ice on for 20 minutes, 2?3 times per day. ? Move your fingers often to avoid stiffness and to lessen swelling. ? Raise (elevate) the injured area above the level of your heart while you are sitting or lying down. Activity ? Rest your wrist. Do not do things that cause pain. ? Return to your normal activities as told by your health care provider. Ask your health care provider what activities are safe for you. ? Do exercises as told by your health care provider. General instructions ? Take uzcx-hkr-ajmzuip and prescription medicines only as told by your health care provider. ? Do not use any products that contain nicotine or tobacco, such as cigarettes and e-cigarettes. These can delay healing. If you need help quitting, ask your health care provider. ? Ask your health care provider when it is safe to drive if you have a splint. ? Keep all follow-up visits as told by your health care provider. This is important. Contact a health care provider if: ? Your pain, bruising, or swelling gets worse. ? Your skin becomes red, gets a rash, or has open sores. ? Your pain does not get better or it gets worse. Get help right away if: ? You have a new or sudden sharp pain in the hand, arm, or wrist. ? You have tingling or numbness in your hand. ? Your fingers turn white, very red, or cold and blue. ? You cannot move your fingers. This information is not intended to replace advice given to you by your health care provider. Make sure you discuss any questions you have with your health care provider. Document Released: 11/28/2014 Document Revised: 03/09/2018 Document Reviewed: 10/13/2016 [employer] Patient Education ? 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 Diagnosis: Right hand sprain This is a 65 year old here today to report a work related injury. 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 He was able to continue to work the rest of the day. He had the next day off and rested it and iced it. It has since swelled and continues to be painful so he decided to come here. He is on Brilinta and bruises easy. No fevers, chills or malaise. No other joint pains or myalgias. He is right handed. No numbness, tingling or weakness. No skin rashes or lesions. There are no other associated symptoms. Nothing makes the symptoms better or worse. Symptoms are described as sudden onset, moderate in nature and persisting. Health Status Allergies: Allergic Reactions (Selected) No known allergies. Medications: (Selected) Documented Medications Documented Brilinta (ticagrelor) 90 mg oral tablet: 0 Refill(s) [facility] ASPIRIN EC 81 MG TABLET: 0 Refill(s) Metoprolol Tartrate 25 mg oral tablet: 0 Refill(s) atorvastatin 80 mg oral tablet: 0 Refill(s) levothyroxine 75 mcg (0.075 mg) oral tablet: 0 Refill(s) nitroglycerin 0.4 mg sublingual tablet: PRN: chest pain, 0 Refill(s). Past Medical/ Family/ Social History Medical history: No active or resolved past medical history items have been selected or recorded.. Surgical history: Stent placement ([id number]).. Family history: No family history items have been selected or recorded.. Social history: Social & Psychosocial Habits Alcohol 04/22/2020 Alcohol Use: Never Substance Abuse 04/22/2020 Substance use: Never Tobacco 04/22/2020 Smoking tobacco use: Never (less than 100 in l Electronic Cigarette/Vaping 04/22/2020 Electronic Cigarette Use: Never . Problem list: No qualifying data available . Physical Examination GENERAL: Awake, alert and oriented to person, place and situation. Well nourished, well developed, non toxic, NAD. EXTREMITIES: Mild TTP of the base of the right second and third metacarpals with soft tissue swelling to the dorsum of the right hand. No cyanosis, clubbing or other edema. Good muscle tone, full ROM with some minimal discomfort. Bilateral radial pulses 2+ with brisk cap refill distally. SKIN: Normal inspection, no visualized rash. NEUROLOGIC: Light touch sensation in tact, strength 5/5 in bilateral upper extremities. Normal mentation. No focal neurological deficits appreciated. Medical Decision Making Orders Launch Orders Radiology: XR Hand Complete Right (Order): 06/25/2020 13:01 EDT Stat, pain, swelling, Allow Modification Per Radiologist, Transport Mode: Cart, Launch Orders Patient Care: Brace/Splint ED (Order): 06/25/2020 13:56 EDT, Abigail wrap. Radiology results: X-ray (ST) X-Ray: ? XR Hand Complete Right ? 06/25/20 13:53:43 EXAM: XR Hand Complete Right HISTORY: pain, swelling COMPARISON: None TECHNIQUE: 2 views of the right hand were obtained. FINDINGS: No definite acute fracture or dislocation is seen. Mild contour irregularity of the tuft of distal phalanx of the ring finger due to old fracture deformity. Correlate with history. Mild degenerative changes about the DIP joints and interphalangeal joint of the thumb. Moderate degenerative change about the third metacarpophalangeal joint with mild change about the second metacarpophalangeal joint. Minimal degenerative changes about the first metacarpocarpal joint. Clas-pu-hcogbazg generalized soft tissue swelling. IMPRESSION: Right hand study demonstrates degenerative changes as described. Findings which may be related to old healed fracture of the tuft of the distal phalanx of the ring finger, correlate with history. Soft tissue swelling as noted. Follow-up as needed. ? Signed By: Markos Tirado MD Rest, ice, compress, and elevate. Abigail is applied by the nurse and checked by myself, and extremity is neurovascularly in tact at the time of discharge. OK to return to full duty work and follow-up here only as needed. Return with new, or worsening symptoms, or symptoms failing to improve as expected and the patient voiced their understanding. Questions answered. Follow-up with their family doctor as directed, return here sooner as needed. Impression and Plan Diagnosis Sprain of right hand ([id number] S63.91XA, Discharge, Medical) Plan Condition: Stable. Disposition: Discharged: Time 06/25/2020 13:54:00, to home. Patient was given the following educational materials: Wrist Sprain, Adult. Follow up with: ; Return to this practice , only if needed, Return to this practice , only if needed. Counseled: Patient, Regarding diagnosis, Regarding treatment plan, Patient indicated understanding of instructions. Normal [facility] Recordon 021 Urgent Care Record [facility] ? Urgent Care [address] [place] [address] PATIENT DISCHARGE INSTRUCTIONS Patient Information Name: RONI JIANG Age: 65 Years Date of : 1955 Reason For Visit: UC - Wrist/Hand/Finger Pain or Swelling; RIGHT HAND SWELLING Arrival Time: 06/25/2020 12:49:51 Primary Care Physician: SYLVESTER BUSTAMANTE Attending Physician: Gordo Limon Comment: Visit Diagnosis: Diagnoses This Visit Sprain of right hand (S63.91XA) UC - Wrist/Hand/Finger Pain or Swelling ([id number]) If you received any narcotics, sedation, or any other medication that causes drowsiness for the next 24 hours, unless otherwise directed: ? Do not drive a car. ? Do not operate machinery such as power tools, lawn mowers, drills, sewing machines, or stoves ? Avoid alcoholic beverages and drugs for allergies, nerves, or sleep ? Do not make important personal or business decisions or sign any legal documents With: Address: When: Return to this practice , only if needed Medication Information: The exam and treatment you received today in the [facility] were for an urgent problem and are not intended as complete care. It is important for you to follow up with a doctor, nurse practitioner, or physician?s under water assistant for ongoing care. If your symptoms become worse or you do not improve as expected and you are unable to reach your usual health care provider, you should return to the Emergency Department, we are available 24 hours a day. For those patients who have received Radiology results, the interpretation of your X-ray as given to you by our Urgent Care physician is only a preliminary report. The Radiologist will review your films and if there is a change in the diagnosis you will be notified by phone. Please make sure you have provided a working phone number so we can reach you if necessary. In the event that you had a lab culture while you were a patient in the Urgent Care, you will be notified by phone if there is a need to change your antibiotic. Please make sure you have provided a working phone number so we can reach you if necessary. [facility] has provided you with a complete list of medications post discharge. Please inform your soap drier operator/provider of your visit and for further instruction on these medications. Any specific questions regarding your chronic medications and dosages should be discussed with your primary care physician(s) and/or pharmacist. Medications to Continue That Have Not Changed Other Medications aspirin (aspirin 81 mg oral tablet) 1 tab(s) Oral every day. atorvastatin (atorvastatin 80 mg oral tablet) levothyroxine (levothyroxine 75 mcg (0.075 mg) oral tablet) metoprolol (Metoprolol Tartrate 25 mg oral tablet) nitroglycerin (nitroglycerin 0.4 mg sublingual tablet) as needed chest pain. ticagrelor (Brilinta (ticagrelor) 90 mg oral tablet) Visit Information Allergies: Substance Reaction Symptoms Type Comments No known allergies Drug Vital Signs: Vitals and Measurements this Visit (last charted value for your 06/25/2020 visit) Vital Signs This Visit Temperature Temporal: 36.2 DegC Peripheral Pulse Rate: 70 bpm Respiratory Rate: 18 br/min Systolic Blood Pressure: 140 mmHg Diastolic Blood Pressure: 80 mmHg SpO2: 100 % Oxygen Therapy: Room air Measurements This Visit Height: 177.8 cm Weight: 94.80 kg Body Mass Index: 29.99 kg/m2 Problems List: Problem Onset Comments No Problems found Patient Education Hand/Wrist Sprain, Adult A sprain is a stretch or tear in the strong, fibrous tissues (ligaments) that connect your wrist bones. There are three types of hand/wrist sprains: ? Grade 1. In this type of sprain, the ligament is stretched more than normal. ? Grade 2. In this type of sprain, the ligament is partially torn. You may be able to move your wrist, but not very much. ? Grade 3. In this type of sprain, the ligament or muscle is completely torn. You may find it difficult or extremely painful to move your wrist even a little. What are the causes? A sprain can be caused by using the wrist too much during sports, exercise, or at work. It can also happen with a fall or during an accident. What increases the risk? This condition is more likely to occur in people: ? With a previous wrist or arm injury. ? With poor wrist strength and flexibility. ? Who play contact sports, such as football or soccer. ? Who play sports that may result in a fall, such as skateboarding, biking, skiing, or snowboarding. ? Who do not exercise regularly. ? Who use exercise equipment that does not fit well. What are the signs or symptoms? Symptoms of this condition include: ? Pain in the wrist, arm, or hand. ? Swelling or bruised skin near the wrist, hand, or arm. The skin may look yellow or kind of blue. ? Stiffness or trouble moving the hand. ? Hearing a pop or feeling a tear at the time of the injury. ? A warm feeling in the skin around the wrist. How is this diagnosed? This condition is diagnosed with a physical exam. Sometimes an X-ray is taken to make sure a bone did not break. If your health care provider thinks that you tore a ligament, he or she may order an MRI of your wrist. How is this treated? This condition is treated by resting and applying ice to your wrist. Additional treatment may include: ? Medicine for pain and inflammation. ? A splint to keep your wrist still (immobilized). ? Exercises to strengthen and stretch your wrist. ? Surgery. This may be done if the ligament is completely torn. Follow these instructions at home: If you have a splint: ? Do not put pressure on any part of the splint until it is fully hardened. This may take several hours. ? Wear the splint as told by your health care provider. Remove it only as told by your health care provider. ? Loosen the splint if your fingers tingle, become numb, or turn cold and blue. ? If your splint is not waterproof: ? Do not let it get wet. ? Cover it with a watertight covering when you take a bath or a shower. ? Keep the splint clean. Managing pain, stiffness, and swelling ? If directed, put ice on the injured area. ? If you have a removable splint, remove it as told by your health care provider. ? Put ice in a plastic bag. ? Place a towel between your skin and the bag or between the splint and the bag. ? Leave the ice on for 20 minutes, 2?3 times per day. ? Move your fingers often to avoid stiffness and to lessen swelling. ? Raise (elevate) the injured area above the level of your heart while you are sitting or lying down. Activity ? Rest your wrist. Do not do things that cause pain. ? Return to your normal activities as told by your health care provider. Ask your health care provider what activities are safe for you. ? Do exercises as told by your health care provider. General instructions ? Take eavh-pjr-endtfuh and prescription medicines only as told by your health care provider. ? Do not use any products that contain nicotine or tobacco, such as cigarettes and e-cigarettes. These can delay healing. If you need help quitting, ask your health care provider. ? Ask your health care provider when it is safe to drive if you have a splint. ? Keep all follow-up visits as told by your health care provider. This is important. Contact a health care provider if: ? Your pain, bruising, or swelling gets worse. ? Your skin becomes red, gets a rash, or has open sores. ? Your pain does not get better or it gets worse. Get help right away if: ? You have a new or sudden sharp pain in the hand, arm, or wrist. ? You have tingling or numbness in your hand. ? Your fingers turn white, very red, or cold and blue. ? You cannot move your fingers. This information is not intended to replace advice given to you by your health care provider. Make sure you discuss any questions you have with your health care provider. Document Released: 11/28/2014 Document Revised: 03/09/2018 Document Reviewed: 10/13/2016 [employer] Patient Education ? 2019 [employer]. Viruses or Bacteria What?s got you sick? Antibiotics only treat bacterial infections. Viral illnesses cannot be treated with antibiotics. When an antibiotic is not prescribed, ask your healthcare professional for tips on how to relieve symptoms and feel better. Usual Cause Illness Viruses Bacteria Antibiotic Needed Cold/Runny Nose NO Bronchitis/Chest Cold (in otherwise healthy children and adults) NO Whooping Cough Yes Flu NO Strep Throat Yes Sore Throat (except strep) NO Fluid in the middle ear (otitis media with effusion) NO Urinary Tract Infection Yes Antibiotics Aren?t Always the Answer www.cdc.gov/getsmart GET SMART Know When Antibiotics Work U.S. Department of Health and Human Services Centers for Disease Control and Prevention December 2013 [facility] XR Hand Complete Righton XR Hand Complete Right EXAM: XR Hand Complete Right HISTORY: pain, swelling COMPARISON: None TECHNIQUE: 2 views of the right hand were obtained. FINDINGS: No definite acute fracture or dislocation is seen. Mild contour irregularity of the tuft of distal phalanx of the ring finger due to old fracture deformity. Correlate with history. Mild degenerative changes about the DIP joints and interphalangeal joint of the thumb. Moderate degenerative change about the third metacarpophalangeal joint with mild change about the second metacarpophalangeal joint. Minimal degenerative changes about the first metacarpocarpal joint. Prva-cz-wpagvzwm generalized soft tissue swelling. IMPRESSION: Right hand study demonstrates degenerative changes as described. Findings which may be related to old healed fracture of the tuft of the distal phalanx of the ring finger, correlate with history. Soft tissue swelling as noted. Follow-up as needed. Final Dictated by: Markos Tirado MD Dictated DT/TM: 06/25/20 1:50 Signed (Electronic Signature): Markos Tirado MD 06/25/20 1:53 pm Technologist: ANGELI [facility] Coding Summaryon 04-29-2020 Coding Summary CODING DATE: 04/29/2020 [facility] STATUS: Home PAYOR: Workers Compensation ADMIT DX: REASON FOR VISIT DX: S80.12XA Contusion of left lower leg, initial encounter FINAL DX: PRINCIPAL: S80.12XA Contusion of left lower leg, initial encounter SECONDARY: S80.11XA Contusion of right lower leg, initial encounter PYMT PROC APC STAT DESCRIPTION DOCTOR NAME DATE NOTE: The code number assigned matches the documented diagnosis and / or procedure in the patient's chart. However, the narrative phrase printed from the coding software may appear abbreviated, or result in slightly different terminology. Coded By: Anali Santos Date Saved: 04/29/2020 01:12 pm [facility] ED Clinical Summaryon 2020 ED Clinical Summary [facility] ? Urgent Care [address] [place], [place] [id number] Clinical Summary PERSON INFORMATION Name: RONI JIANG Age: 65 Years Sex: MALE : 1955 MRN: Acct#: Visit Reason: Medical screening exam; [facility] F/U - BILAT LEG INJURY Arrival: 04/28/2020 14:11:20 Discharge: 04/28/2020 14:41:00 LOS: 000 00:30 Check In: 04/28/2020 14:11:20 Checkout: 04/28/2020 14:41:00 Address: [address] [place] [id number] PCP: SYLVESTER BUSTAMANTE PROVIDER INFORMATION Provider Role Assigned Unassigned Radha SANTOS, Gissell ED Nurse 04/28/2020 14:13:08 Osito Lopez PA-C ED PA 04/28/2020 14:13:28 VITALS INFORMATION Vital Sign Triage Latest Temperature Tympanic Temperature Temporal Artery Pulse Rate O2 Sat 98 % 98 % Respiratory Rate Blood Pressure /87 mmHg /87 mmHg MEDICAL INFORMATION Medications Given: Allergy Information: No known allergies PHYSICIAN DOCUMENTATION DISCHARGE INFORMATION: Discharge Disposition: Home Discharge Location: Home PATIENT EDUCATION INFORMATION Instructions: Follow-Up: With: Address: When: Return to this practice , only if needed DIAGNOSIS: Hematoma of left lower leg; Hematoma of right lower leg Patient Understands: Yes - Patient/family/caregiv er verbalizes understanding of instructions given Comment: Normal [facility] ED Patient Summaryon 021 ED Patient Summary [facility] ? Urgent Care [address] [place] [address] PATIENT DISCHARGE INSTRUCTIONS Patient Information Name: RONI JIANG Age: 65 Years Date of : 1955 Reason For Visit: Medical screening exam; [facility] F/U - BILAT LEG INJURY Arrival Time: 04/28/2020 14:11:20 Primary Care Physician: SYLVESTER BUSTAMANTE Attending Physician: Osito Lopez PA-C Comment: Patient Education With: Address: When: Return to this practice , only if needed Medication Information: The exam and treatment you received today in the [facility] Emergency Department were for an urgent problem and are not intended as complete care. It is important for you to follow up with a doctor, nurse practitioner, or physician?s under water assistant for ongoing care. If your symptoms become worse or you do not improve as expected and you are unable to reach your usual health care provider, you should return to the Emergency Department, we are available 24 hours a day. For those patients who have received Radiology results, the interpretation of your X-ray as given to you by our Emergency Department physician is only a preliminary report. The Radiologist will review your films and if there is a change in the diagnosis you will be notified by phone. Please make sure you have provided a working phone number so we can reach you if necessary. In the event that you had a lab culture while you were a patient in the Emergency Department, you will be notified by phone if there is a need to change your antibiotic. Please make sure you have provided a working phone number so we can reach you if necessary. [facility] Emergency Department has provided you with a complete list of medications post discharge. Please inform your soap drier operator/provider of your visit and for further instruction on these medications. Any specific questions regarding your chronic medications and dosages should be discussed with your primary care physician(s) and/or pharmacist. Medications to Continue That Have Not Changed Other Medications atorvastatin (atorvastatin 80 mg oral tablet) levothyroxine (levothyroxine 75 mcg (0.075 mg) oral tablet) metoprolol (Metoprolol Tartrate 25 mg oral tablet) [facility] Prescription ([facility] ASPIRIN EC 81 MG TABLET) nitroglycerin (nitroglycerin 0.4 mg sublingual tablet) as needed chest pain. ticagrelor (Brilinta (ticagrelor) 90 mg oral tablet) Visit Information Visit Diagnosis: Diagnoses This Visit Hematoma of left lower leg (S80.12XA) Hematoma of right lower leg (S80.11XA) Medical screening exam ([id number]) If you received any narcotics, sedation, or any other medication that causes drowsiness for the next 24 hours, unless otherwise directed: ? Do not drive a car. ? Do not operate machinery such as power tools, lawn mowers, drills, sewing machines, or stoves ? Avoid alcoholic beverages and drugs for allergies, nerves, or sleep ? Do not make important personal or business decisions or sign any legal documents Reason for Visit: [facility] F/U injury to left calf area States it feel much better but is painful first thing in the am and if he has been sitting for a while, first time standing up will bother his leg. Allergies: Substance Reaction Symptoms Type Comments No known allergies Drug Vital Signs: Vitals and Measurements this Visit (last charted value for your 04/28/2020 visit) Vital Signs This Visit Temperature Oral: 36.7 DegC Apical Heart Rate: 72 bpm Respiratory Rate: 20 br/min Systolic Blood Pressure: 137 mmHg Diastolic Blood Pressure: 87 mmHg SpO2: 98 % Measurements This Visit Height: 177.80 cm Weight: 93.44 kg Body Mass Index: 29.56 kg/m2 Problems List: Problem Onset Comments No Problems found Major Tests and Procedures: The following procedures and tests were performed during your ED visit. Laboratory Radiology Cardiology Viruses or Bacteria What?s got you sick? Antibiotics only treat bacterial infections. Viral illnesses cannot be treated with antibiotics. When an antibiotic is not prescribed, ask your healthcare professional for tips on how to relieve symptoms and feel better. Usual Cause Illness Viruses Bacteria Antibiotic Needed Cold/Runny Nose NO Bronchitis/Chest Cold (in otherwise healthy children and adults) NO Whooping Cough Yes Flu NO Strep Throat Yes Sore Throat (except strep) NO Fluid in the middle ear (otitis media with effusion) NO Urinary Tract Infection Yes Antibiotics Aren?t Always the Answer www.cdc.gov/getsmart GET SMART Know When Antibiotics Work U.S. Department of Health and Human Services Centers for Disease Control and Prevention December 2013 [facility] Patient Handouton 04-28-2020 Patient Handout Patient Education Materials Follows: [facility] Urgent Care Note- Provideron 04-28-2020 Urgent Care Note- Provider Patient: RONI JIANG Age: 65 years Sex: MALE : 1955 Associated Diagnoses: Hematoma of left lower leg; Hematoma of right lower leg Author: Osito Lopez PA-C History of Present Illness OCCUPATIONAL HEALTH FOLLOW-UP Date of injury: 04/16/20 Claim #: Employer: [employer] Mechanism of Injury: A shelf fell and struck him in the back of his legs just below the knees. Diagnosis: Right lower leg hematoma, Left lower leg hematoma This is a 65 year old here today to report a work related injury. He was working at [employer] on 04/16 when a shelf fell and struck him in the back of his lower legs, just below his knees. He is on Brilinta and bruises easy. He presented with bilateral lower leg hematomas, left leg greater than his right. He has been wrapping his left leg. The swelling, pain and stiffness continues to improve with time and he is tolerating full duty work. The bruising is now sinking down to his toes on the left. Today there is no swelling to his left foot after working all day. His calf remains slightly swollen. No fevers, chills or malaise. No chest pains or SOB. He is taking his Brilinta as prescribed. No other joint pains or myalgias. No numbness, tingling or weakness. No skin rashes or lesions. + ecchymosis/hematoma. There are no other associated symptoms. Nothing makes the symptoms better or worse. Symptoms are described as sudden onset, moderate in nature and persisting. Health Status Allergies: Allergic Reactions (Selected) No known allergies. Medications: (Selected) Documented Medications Documented Brilinta (ticagrelor) 90 mg oral tablet: 0 Refill(s) [facility] ASPIRIN EC 81 MG TABLET: 0 Refill(s) Metoprolol Tartrate 25 mg oral tablet: 0 Refill(s) atorvastatin 80 mg oral tablet: 0 Refill(s) levothyroxine 75 mcg (0.075 mg) oral tablet: 0 Refill(s) nitroglycerin 0.4 mg sublingual tablet: PRN: chest pain, 0 Refill(s). Past Medical/ Family/ Social History Medical history: No active or resolved past medical history items have been selected or recorded.. Surgical history: Stent placement ([id number]).. Family history: No family history items have been selected or recorded.. Social history: Social & Psychosocial Habits Alcohol 04/22/2020 Alcohol Use: Never Substance Abuse 04/22/2020 Substance use: Never Tobacco 04/22/2020 Smoking tobacco use: Never (less than 100 in l Electronic Cigarette/Vaping 04/22/2020 Electronic Cigarette Use: Never . Problem list: No qualifying data available . Physical Examination Vital Signs Vital Signs 04/28/2020 14:15 EST Temperature Oral 36.7 DegC Apical Heart Rate 72 bpm Respiratory Rate 20 br/min Systolic Blood Pressure 137 mmHg Diastolic Blood Pressure 87 mmHg SpO2 98 % . GENERAL: Awake, alert and oriented to person, place and situation. Well nourished, well developed, non toxic, NAD. EXTREMITIES: Less than 1+ non pitting edema left knee to the ankle with an 6 cm x 4 cm hematoma upper left posterior calf, less tender to palpation, soft hematoma right posterior lower calf. No cyanosis, clubbing or other edema. Good muscle tone, moves all extremities. Bilateral pedal pulses 2+ with brisk cap refill distally. No further swelling left foot. SKIN: Ecchymosis to bilateral posterior calfs that extend from just below the knee to the ankles, worse on the left, extending to the toes on the left. Otherwise normal inspection, no visualized rash. NEUROLOGIC: Light touch sensation in tact, strength 5/5 in bilateral lower extremities. Normal mentation. No focal neurological deficits appreciated. Medical Decision Making Swelling is subsiding in bilateral lower extremities. Pain is improving. He is continuing to tolerate full duty work. Typical course of this discussed in detail. He can continue on full duty work. Return with new, or worsening symptoms, or symptoms failing to improve as expected and the patient voiced their understanding. Questions answered. Follow-up here only as needed. His employer is notified. Impression and Plan Diagnosis Hematoma of left lower leg ([id number] S80.12XA, Discharge, Medical) Hematoma of right lower leg ([id number] S80.11XA, Discharge, Medical) Plan Condition: Stable. Disposition: Discharged: Time 04/28/2020 14:38:00, to home. Follow up with: ; Return to this practice , only if needed. Counseled: Patient, Regarding diagnosis, Regarding treatment plan, Patient indicated understanding of instructions. Normal [facility] Urgent Care Recordon 021 Urgent Care Record [facility] ? Urgent Care [address] [place] [address] PATIENT DISCHARGE INSTRUCTIONS Patient Information Name: RONI JIANG Age: 65 Years Date of : 1955 Reason For Visit: Medical screening exam; [facility] F/U - BILAT LEG INJURY Arrival Time: 04/28/2020 14:11:20 Primary Care Physician: SYLVESTER BUSTAMANTE Attending Physician: Osito Lopez PA-C Comment: Visit Diagnosis: Diagnoses This Visit Hematoma of left lower leg (S80.12XA) Hematoma of right lower leg (S80.11XA) Medical screening exam ([id number]) If you received any narcotics, sedation, or any other medication that causes drowsiness for the next 24 hours, unless otherwise directed: ? Do not drive a car. ? Do not operate machinery such as power tools, lawn mowers, drills, sewing machines, or stoves ? Avoid alcoholic beverages and drugs for allergies, nerves, or sleep ? Do not make important personal or business decisions or sign any legal documents With: Address: When: Return to this practice , only if needed Medication Information: The exam and treatment you received today in the [facility] Urgent [facility] were for an urgent problem and are not intended as complete care. It is important for you to follow up with a doctor, nurse practitioner, or physician?s under water assistant for ongoing care. If your symptoms become worse or you do not improve as expected and you are unable to reach your usual health care provider, you should return to the Emergency Department, we are available 24 hours a day. For those patients who have received Radiology results, the interpretation of your X-ray as given to you by our Urgent Care physician is only a preliminary report. The Radiologist will review your films and if there is a change in the diagnosis you will be notified by phone. Please make sure you have provided a working phone number so we can reach you if necessary. In the event that you had a lab culture while you were a patient in the Urgent Care, you will be notified by phone if there is a need to change your antibiotic. Please make sure you have provided a working phone number so we can reach you if necessary. [facility] has provided you with a complete list of medications post discharge. Please inform your soap drier operator/provider of your visit and for further instruction on these medications. Any specific questions regarding your chronic medications and dosages should be discussed with your primary care physician(s) and/or pharmacist. Medications to Continue That Have Not Changed Other Medications atorvastatin (atorvastatin 80 mg oral tablet) levothyroxine (levothyroxine 75 mcg (0.075 mg) oral tablet) metoprolol (Metoprolol Tartrate 25 mg oral tablet) [facility] Pres[facility] ([facility] ASPIRIN EC 81 MG TABLET) nitroglycerin (nitroglycerin 0.4 mg sublingual tablet) as needed chest pain. ticagrelor (Brilinta (ticagrelor) 90 mg oral tablet) Visit Information Allergies: Substance Reaction Symptoms Type Comments No known allergies Drug Vital Signs: Vitals and Measurements this Visit (last charted value for your 04/28/2020 visit) Vital Signs This Visit Temperature Oral: 36.7 DegC Apical Heart Rate: 72 bpm Respiratory Rate: 20 br/min Systolic Blood Pressure: 137 mmHg Diastolic Blood Pressure: 87 mmHg SpO2: 98 % Measurements This Visit Height: 177.80 cm Weight: 93.44 kg Body Mass Index: 29.56 kg/m2 Problems List: Problem Onset Comments No Problems found Patient Education Viruses or Bacteria What?s got you sick? Antibiotics only treat bacterial infections. Viral illnesses cannot be treated with antibiotics. When an antibiotic is not prescribed, ask your healthcare professional for tips on how to relieve symptoms and feel better. Usual Cause Illness Viruses Bacteria Antibiotic Needed Cold/Runny Nose NO Bronchitis/Chest Cold (in otherwise healthy children and adults) NO Whooping Cough Yes Flu NO Strep Throat Yes Sore Throat (except strep) NO Fluid in the middle ear (otitis media with effusion) NO Urinary Tract Infection Yes Antibiotics Aren?t Always the Answer www.cdc.gov/getsmart GET SMART Know When Antibiotics Work U.S. Department of Health and Human Services Centers for Disease Control and Prevention December 2013 [facility] Coding Summaryon 04-23-2020 Coding Summary CODING DATE: 04/23/2020 [facility] STATUS: Home PAYOR: Workers Compensation ADMIT DX: REASON FOR VISIT DX: S80.11XA Contusion of right lower leg, initial encounter S80.12XA Contusion of left lower leg, initial encounter FINAL DX: PRINCIPAL: S80.12XA Contusion of left lower leg, initial encounter SECONDARY: S80.11XA Contusion of right lower leg, initial encounter Z79.01 intermediate (current) use of anticoagulants W20.8XXA Other cause of strike by thrown, projected or falling object, initial encounter Y99.0 Civilian activity done for income or pay Y92.512 Supermarket, store or market as the place of occurrence of the external cause PYMT PROC APC STAT DESCRIPTION DOCTOR NAME DATE NOTE: The code number assigned matches the documented diagnosis and / or procedure in the patient's chart. However, the narrative phrase printed from the coding software may appear abbreviated, or result in slightly different terminology. Coded By: Bradford Obando' Date Saved: 04/23/2020 11:25 am [facility] Discharge Instructionson Discharge Instructions [id number]#[id number] 0OTGTIFF [facility] Outside Recordson 04-23-2020 Outside Records [id number]#[id number] 0OTGTIFF [facility] ED Clinical Summaryon 2020 ED Clinical Summary [facility] ? Urgent Care [address] [place] [id number] Clinical Summary PERSON INFORMATION Name: RONI JIANG Age: 65 Years Sex: MALE : 1955 MRN: Acct#: Visit Reason: Medical screening exam; BILAT LEG PAIN Arrival: 04/22/2020 13:48:01 Discharge: 04/22/2020 14:39:00 LOS: 000 00:51 Check In: 04/22/2020 13:48:01 Checkout: 04/22/2020 14:39:00 Address: [address] [place] [id number] PCP: SYLVESTER BUSTAMANTE PROVIDER INFORMATION Provider Role Assigned Unassigned Osito Lopez PA-C ED PA 04/22/2020 13:50:35 Theresa RN, Lexi ED Nurse 04/22/2020 13:50:48 VITALS INFORMATION Vital Sign Triage Latest Temperature Tympanic Temperature Temporal Artery Pulse Rate O2 Sat 96 % 96 % Respiratory Rate Blood Pressure /88 mmHg /88 mmHg MEDICAL INFORMATION Medications Given: Allergy Information: No known allergies PHYSICIAN DOCUMENTATION DISCHARGE INFORMATION: Discharge Disposition: Home Discharge Location: Home PATIENT EDUCATION INFORMATION Instructions: Hematoma, [id number] Follow-Up: With: Address: When: Return to this practice Comments: Apr 28 at 2:30 p.m. DIAGNOSIS: Hematoma of left lower leg; Hematoma of right lower leg Patient Understands: Yes - Patient/family/caregiv er verbalizes understanding of instructions given Comment: [facility] ED Patient Summaryon 021 ED Patient Summary [facility] ? Urgent Care [address] [place] [address] PATIENT DISCHARGE INSTRUCTIONS Patient Information Name: RONI JIANG Age: 65 Years Date of : 1955 Reason For Visit: Medical screening exam; BILAT LEG PAIN Arrival Time: 04/22/2020 13:48:01 Primary Care Physician: SYLVESTER BUSTAMANTE Attending Physician: Osito Lopez PA-C Comment: Patient Education With: Address: When: Return to this practice Comments: Apr 28 at 2:30 p.m. Hematoma A hematoma is a collection of blood. A hematoma can happen: ? Under the skin. ? In an organ. ? In a body space. ? In a joint space. ? In other tissues. The blood can thicken (clot) to form a lump that you can see and feel. The lump is often hard and may become sore and tender. The lump can be very small or very big. Most hematomas get better in a few days to weeks. However, some hematomas may be serious and need medical care. What are the causes? This condition is caused by: ? An injury. ? Blood that leaks under the skin. ? Problems from surgeries. ? Medical conditions that cause bleeding or bruising. What increases the risk? You are more likely to develop this condition if: ? You are an older adult. ? You use medicines that thin your blood. What are the signs or symptoms? Symptoms depend on where the hematoma is in your body. ? If the hematoma is under the skin, there is: ? A firm lump on the body. ? Pain and tenderness in the area. ? Bruising. The skin above the lump may be blue, dark blue, purple-red, or yellowish. ? If the hematoma is deep in the tissues or body spaces, there may be: ? Blood in the stomach. This may cause pain in the belly (abdomen), weakness, passing out (fainting), and shortness of breath. ? Blood in the head. This may cause a headache, weakness, trouble speaking or understanding speech, or passing out. How is this diagnosed? This condition is diagnosed based on: ? Your medical history. ? A physical exam. ? Imaging tests, such as ultrasound or CT scan. ? Blood tests. How is this treated? Treatment depends on the cause, size, and location of the hematoma. Treatment may include: ? Doing nothing. Many hematomas go away on their own without treatment. ? Surgery or close monitoring. This may be needed for large hematomas or hematomas that affect the body's organs. ? Medicines. These may be given if a medical condition caused the hematoma. Follow these instructions at home: Managing pain, stiffness, and swelling ? If told, put ice on the area. ? Put ice in a plastic bag. ? Place a towel between your skin and the bag. ? Leave the ice on for 20 minutes, 2?3 times a day for the first two days. ? If told, put heat on the affected area after putting ice on the area for two days. Use the heat source that your doctor tells you to use. This could be a moist heat pack or a heating pad. To do this: ? Place a towel between your skin and the heat source. ? Leave the heat on for 20?30 minutes. ? Remove the heat if your skin turns bright red. This is very important if you are unable to feel pain, heat, or cold. You may have a greater risk of getting burned. ? Raise (elevate) the affected area above the level of your heart while you are sitting or lying down. ? Wrap the affected area with an elastic bandage, if told by your doctor. Do not wrap the bandage too tightly. ? If your hematoma is on a leg or foot and is painful, your doctor may give you crutches. Use them as told by your doctor. General instructions ? Take oiiu-hnd-vfnbgld and prescription medicines only as told by your doctor. ? Keep all follow-up visits as told by your doctor. This is important. Contact a doctor if: ? You have a fever. ? The swelling or bruising gets worse. ? You start to get more hematomas. Get help right away if: ? Your pain gets worse. ? Your pain is not getting better with medicine. ? Your skin over the hematoma breaks or starts to bleed. ? Your hematoma is in your chest or belly and you: ? Pass out. ? Feel weak. ? Become short of breath. ? You have a hematoma on your scalp that is caused by a fall or injury, and you: ? Have a headache that gets worse. ? Have trouble speaking or understanding speech. ? Become less alert or you pass out. Summary ? A hematoma is a collection of blood in any part of your body. ? Most hematomas get better on their own in a few days to weeks. Some may need medical care. ? Follow instructions from your doctor about how to care for your hematoma. ? Contact a doctor if the swelling or bruising gets worse, or if you are short of breath. This information is not intended to replace advice given to you by your health care provider. Make sure you discuss any questions you have with your health care provider. Document Released: 05/04/2005 Document Revised: 08/30/2018 Document Reviewed: 08/30/2018 [employer] Patient Education ? 2020 [employer]. Medication Information: The exam and treatment you received today in the [facility] Emergency Department were for an urgent problem and are not intended as complete care. It is important for you to follow up with a doctor, nurse practitioner, or physician?s under water assistant for ongoing care. If your symptoms become worse or you do not improve as expected and you are unable to reach your usual health care provider, you should return to the Emergency Department, we are available 24 hours a day. For those patients who have received Radiology results, the interpretation of your X-ray as given to you by our Emergency Department physician is only a preliminary report. The Radiologist will review your films and if there is a change in the diagnosis you will be notified by phone. Please make sure you have provided a working phone number so we can reach you if necessary. In the event that you had a lab culture while you were a patient in the Emergency Department, you will be notified by phone if there is a need to change your antibiotic. Please make sure you have provided a working phone number so we can reach you if necessary. [facility] Emergency Department has provided you with a complete list of medications post discharge. Please inform your soap drier operator/provider of your visit and for further instruction on these medications. Any specific questions regarding your chronic medications and dosages should be discussed with your primary care physician(s) and/or pharmacist. Medications to Continue That Have Not Changed Other Medications atorvastatin (atorvastatin 80 mg oral tablet) levothyroxine (levothyroxine 75 mcg (0.075 mg) oral tablet) metoprolol (Metoprolol Tartrate 25 mg oral tablet) [facility] Prescription ([facility] ASPIRIN EC 81 MG TABLET) nitroglycerin (nitroglycerin 0.4 mg sublingual tablet) as needed chest pain. ticagrelor (Brilinta (ticagrelor) 90 mg oral tablet) Visit Information Visit Diagnosis: Diagnoses This Visit Hematoma of left lower leg (S80.12XA) Hematoma of right lower leg (S80.11XA) Medical screening exam ([id number]) If you received any narcotics, sedation, or any other medication that causes drowsiness for the next 24 hours, unless otherwise directed: ? Do not drive a car. ? Do not operate machinery such as power tools, lawn mowers, drills, sewing machines, or stoves ? Avoid alcoholic beverages and drugs for allergies, nerves, or sleep ? Do not make important personal or business decisions or sign any legal documents Reason for Visit: Patient arrives to for BWC. C/O bilateral leg pain that is worse on the left. Patient states that last a shelf fell and hit his left calf and right ankle. Not getting better. Patient takes Brillinta. Allergies: Substance Reaction Symptoms Type Comments No known allergies Drug Vital Signs: Vitals and Measurements this Visit (last charted value for your 04/22/2020 visit) Vital Signs This Visit Temperature Temporal: 37.3 DegC Peripheral Pulse Rate: 70 bpm Respiratory Rate: 16 br/min Systolic Blood Pressure: 144 mmHg Diastolic Blood Pressure: 88 mmHg SpO2: 96 % Oxygen Therapy: Room air Measurements This Visit Height/Length Estimated: 178 cm Weight Estimated: 96.62 kg Body Mass Index Estimated: 30 kg/m2 Problems List: Problem Onset Comments No Problems found Major Tests and Procedures: The following procedures and tests were performed during your ED visit. Laboratory Radiology Cardiology Viruses or Bacteria What?s got you sick? Antibiotics only treat bacterial infections. Viral illnesses cannot be treated with antibiotics. When an antibiotic is not prescribed, ask your healthcare professional for tips on how to relieve symptoms and feel better. Usual Cause Illness Viruses Bacteria Antibiotic Needed Cold/Runny Nose NO Bronchitis/Chest Cold (in otherwise healthy children and adults) NO Whooping Cough Yes Flu NO Strep Throat Yes Sore Throat (except strep) NO Fluid in the middle ear (otitis media with effusion) NO Urinary Tract Infection Yes Antibiotics Aren?t Always the Answer www.cdc.gov/getsmart GET SMART Know When Antibiotics Work U.S. Department of Health and Human Services Centers for Disease Control and Prevention December 2013 [facility] Patient Handouton 04-22-2020 Patient Handout Patient Education Materials Follows: Hematoma A hematoma is a collection of blood. A hematoma can happen: ? Under the skin. ? In an organ. ? In a body space. ? In a joint space. ? In other tissues. The blood can thicken (clot) to form a lump that you can see and feel. The lump is often hard and may become sore and tender. The lump can be very small or very big. Most hematomas get better in a few days to weeks. However, some hematomas may be serious and need medical care. What are the causes? This condition is caused by: ? An injury. ? Blood that leaks under the skin. ? Problems from surgeries. ? Medical conditions that cause bleeding or bruising. What increases the risk? You are more likely to develop this condition if: ? You are an older adult. ? You use medicines that thin your blood. What are the signs or symptoms? Symptoms depend on where the hematoma is in your body. ? If the hematoma is under the skin, there is: ? A firm lump on the body. ? Pain and tenderness in the area. ? Bruising. The skin above the lump may be blue, dark blue, purple-red, or yellowish. ? If the hematoma is deep in the tissues or body spaces, there may be: ? Blood in the stomach. This may cause pain in the belly (abdomen), weakness, passing out (fainting), and shortness of breath. ? Blood in the head. This may cause a headache, weakness, trouble speaking or understanding speech, or passing out. How is this diagnosed? This condition is diagnosed based on: ? Your medical history. ? A physical exam. ? Imaging tests, such as ultrasound or CT scan. ? Blood tests. How is this treated? Treatment depends on the cause, size, and location of the hematoma. Treatment may include: ? Doing nothing. Many hematomas go away on their own without treatment. ? Surgery or close monitoring. This may be needed for large hematomas or hematomas that affect the body's organs. ? Medicines. These may be given if a medical condition caused the hematoma. Follow these instructions at home: Managing pain, stiffness, and swelling ? If told, put ice on the area. ? Put ice in a plastic bag. ? Place a towel between your skin and the bag. ? Leave the ice on for 20 minutes, 2?3 times a day for the first two days. ? If told, put heat on the affected area after putting ice on the area for two days. Use the heat source that your doctor tells you to use. This could be a moist heat pack or a heating pad. To do this: ? Place a towel between your skin and the heat source. ? Leave the heat on for 20?30 minutes. ? Remove the heat if your skin turns bright red. This is very important if you are unable to feel pain, heat, or cold. You may have a greater risk of getting burned. ? Raise (elevate) the affected area above the level of your heart while you are sitting or lying down. ? Wrap the affected area with an elastic bandage, if told by your doctor. Do not wrap the bandage too tightly. ? If your hematoma is on a leg or foot and is painful, your doctor may give you crutches. Use them as told by your doctor. General instructions ? Take ljtq-bhj-flparto and prescription medicines only as told by your doctor. ? Keep all follow-up visits as told by your doctor. This is important. Contact a doctor if: ? You have a fever. ? The swelling or bruising gets worse. ? You start to get more hematomas. Get help right away if: ? Your pain gets worse. ? Your pain is not getting better with medicine. ? Your skin over the hematoma breaks or starts to bleed. ? Your hematoma is in your chest or belly and you: ? Pass out. ? Feel weak. ? Become short of breath. ? You have a hematoma on your scalp that is caused by a fall or injury, and you: ? Have a headache that gets worse. ? Have trouble speaking or understanding speech. ? Become less alert or you pass out. Summary ? A hematoma is a collection of blood in any part of your body. ? Most hematomas get better on their own in a few days to weeks. Some may need medical care. ? Follow instructions from your doctor about how to care for your hematoma. ? Contact a doctor if the swelling or bruising gets worse, or if you are short of breath. This information is not intended to replace advice given to you by your health care provider. Make sure you discuss any questions you have with your health care provider. Document Released: 05/04/2005 Document Revised: 08/30/2018 Document Reviewed: 08/30/2018 Elsevier Patient Education ? 2019 [employer]. [facility] Urgent Care Note- Provideron 04-22-2020 Urgent Care Note- Provider Patient: RONI JIANG Age: 65 years Sex: MALE : 1955 Associated Diagnoses: Hematoma of left lower leg; Hematoma of right lower leg Author: Osito Lopez PA-C History of Present Illness OCCUPATIONAL HEALTH FOLLOW-UP Date of injury: 04/16/20 Claim #: Employer: [employer] Mechanism of Injury: A shelf fell and struck him in the back of his legs just below the knees. Diagnosis: Right lower leg hematoma, Left lower leg hematoma This is a 65 year old here today to report a work related injury. He was working at [employer] on 04/16 when a shelf fell and struck him in the back of his lower legs, just below his knees. He is on Brilinta and bruises easy. His right leg is not as bad as his left leg. It continues to swell. The bruising is now sinking down to his ankle. He is now noting that his foot will appear swollen after being on his feet all day and decided he should probably have it checked. No fevers, chills or malaise. Pain is improving. He is tolerating full duty work. No chest pains or SOB. He is taking his Brilinta as prescribed, making blood clot much less likely, but likely contributing to the hematoma at the same time. No other joint pains or myalgias. No numbness, tingling or weakness. No skin rashes or lesions. + ecchymosis. There are no other associated symptoms. Nothing makes the symptoms better or worse. Symptoms are described as gradual onset, moderate in nature and persisting. Health Status Allergies: Allergic Reactions (Selected) No known allergies. Past Medical/ Family/ Social History Medical history: No active or resolved past medical history items have been selected or recorded.. Surgical history: No active procedure history items have been selected or recorded.. Family history: No family history items have been selected or recorded.. Social history: Social & Psychosocial Habits No Data Available . Problem list: No qualifying data available . Physical Examination GENERAL: Awake, alert and oriented to person, place and situation. Well nourished, well developed, non toxic, NAD. CARDIOVASCULAR: Regular rate and rhythm. +S1 +S2. No murmurs or rubs. RESPIRATORY: Clear to auscultation bilaterally without rales, rhonchi or wheeze. EXTREMITIES: Some 1+ non pitting edema left knee to the ankle with an 8 cm x 6 cm hematoma upper left posterior calf, tender to palpation, soft hematoma right posterior lower calf. No cyanosis, clubbing or other edema. Good muscle tone, moves all extremities. Bilateral pedal pulses 2+ with brisk cap refill distally. SKIN: Ecchymosis to bilateral posterior calfs that extend from just below the knee to the ankles, worse on the left. Otherwise normal inspection, no visualized rash. NEUROLOGIC: Light touch sensation in tact, strength 5/5 in bilateral lower extremities. Normal mentation. No focal neurological deficits appreciated. Medical Decision Making Orders Launch Orders Patient Care: Brace/Splint ED (Order): 04/22/2020 14:08 EST, Abigail wrap. Pt presents with a hematoma, left greater than right, to bilateral lower extremities. We will wrap the left lower leg, he will purchase a compression stocking which I believe will help. He will elevate it when he is able. He takes Brillenta which is contributing to the severity of this. Continue to work full duty. I will see him back in follow-up next week. Return with new, or worsening symptoms, or symptoms failing to improve as expected and the patient voiced their understanding. Questions answered. Follow-up here on 04/28 at 2:30 p.m. Impression and Plan Diagnosis Hematoma of left lower leg ([id number] S80.12XA, Discharge, Medical) Hematoma of right lower leg ([id number] S80.11XA, Discharge, Medical) Plan Condition: Stable. Disposition: Discharged: Time 04/22/2020 14:08:00, to home. Patient was given the following educational materials: Hematoma, Dupt-pu-Sbiz, Hematoma, Mhiz-gz-Vlmk. Follow up with: ; Return to this practice Apr 28 at 2:30 p.m.. Counseled: Patient, Regarding diagnosis, Regarding treatment plan, Patient indicated understanding of instructions. Normal [facility] Rec[facility] 021 Urgent Care Record [facility] ? Urgent Care [address] [id number] PATIENT DISCHARGE INSTRUCTIONS Patient Information Name: RONI JIANG Age: 65 Years Date of : 1955 [facility]: [id number] Reason For Visit: BILAT LEG PAIN Arrival Time: 04/22/2020 13:48:01 Primary Care Physician: SYLVESTER BUSTAMANTE Attending Physician: Osito Lopez PA-C Comment: Visit Diagnosis: Diagnoses This Visit Hematoma of left lower leg (S80.12XA) Hematoma of right lower leg (S80.11XA) If you received any narcotics, sedation, or any other medication that causes drowsiness for the next 24 hours, unless otherwise directed: ? Do not drive a car. ? Do not operate machinery such as power tools, lawn mowers, drills, sewing machines, or stoves ? Avoid alcoholic beverages and drugs for allergies, nerves, or sleep ? Do not make important personal or business decisions or sign any legal documents With: Address: When: Return to this practice Comments: Apr 28 at 2:30 p.m. Medication Information: The exam and treatment you received today in the [facility] were for an urgent problem and are not intended as complete care. It is important for you to follow up with a doctor, nurse practitioner, or physician?s under water assistant for ongoing care. If your symptoms become worse or you do not improve as expected and you are unable to reach your usual health care provider, you should return to the Emergency Department, we are available 24 hours a day. For those patients who have received Radiology results, the interpretation of your X-ray as given to you by our Urgent Care physician is only a preliminary report. The Radiologist will review your films and if there is a change in the diagnosis you will be notified by phone. Please make sure you have provided a working phone number so we can reach you if necessary. In the event that you had a lab culture while you were a patient in the Urgent Care, you will be notified by phone if there is a need to change your antibiotic. Please make sure you have provided a working phone number so we can reach you if necessary. [facility] has provided you with a complete list of medications post discharge. Please inform your soap drier operator/provider of your visit and for further instruction on these medications. Any specific questions regarding your chronic medications and dosages should be discussed with your primary care physician(s) and/or pharmacist. Visit Information Allergies: Substance Reaction Symptoms Type Comments No known allergies Drug Vital Signs: Vitals and Measurements this Visit (last charted value for your 04/22/2020 visit) No vitals and measurements documented Problems List: Problem Onset Comments No Problems found Patient Education Hematoma A hematoma is a collection of blood. A hematoma can happen: ? Under the skin. ? In an organ. ? In a body space. ? In a joint space. ? In other tissues. The blood can thicken (clot) to form a lump that you can see and feel. The lump is often hard and may become sore and tender. The lump can be very small or very big. Most hematomas get better in a few days to weeks. However, some hematomas may be serious and need medical care. What are the causes? This condition is caused by: ? An injury. ? Blood that leaks under the skin. ? Problems from surgeries. ? Medical conditions that cause bleeding or bruising. What increases the risk? You are more likely to develop this condition if: ? You are an older adult. ? You use medicines that thin your blood. What are the signs or symptoms? Symptoms depend on where the hematoma is in your body. ? If the hematoma is under the skin, there is: ? A firm lump on the body. ? Pain and tenderness in the area. ? Bruising. The skin above the lump may be blue, dark blue, purple-red, or yellowish. ? If the hematoma is deep in the tissues or body spaces, there may be: ? Blood in the stomach. This may cause pain in the belly (abdomen), weakness, passing out (fainting), and shortness of breath. ? Blood in the head. This may cause a headache, weakness, trouble speaking or understanding speech, or passing out. How is this diagnosed? This condition is diagnosed based on: ? Your medical history. ? A physical exam. ? Imaging tests, such as ultrasound or CT scan. ? Blood tests. How is this treated? Treatment depends on the cause, size, and location of the hematoma. Treatment may include: ? Doing nothing. Many hematomas go away on their own without treatment. ? Surgery or close monitoring. This may be needed for large hematomas or hematomas that affect the body's organs. ? Medicines. These may be given if a medical condition caused the hematoma. Follow these instructions at home: Managing pain, stiffness, and swelling ? If told, put ice on the area. ? Put ice in a plastic bag. ? Place a towel between your skin and the bag. ? Leave the ice on for 20 minutes, 2?3 times a day for the first two days. ? If told, put heat on the affected area after putting ice on the area for two days. Use the heat source that your doctor tells you to use. This could be a moist heat pack or a heating pad. To do this: ? Place a towel between your skin and the heat source. ? Leave the heat on for 20?30 minutes. ? Remove the heat if your skin turns bright red. This is very important if you are unable to feel pain, heat, or cold. You may have a greater risk of getting burned. ? Raise (elevate) the affected area above the level of your heart while you are sitting or lying down. ? Wrap the affected area with an elastic bandage, if told by your doctor. Do not wrap the bandage too tightly. ? If your hematoma is on a leg or foot and is painful, your doctor may give you crutches. Use them as told by your doctor. General instructions ? Take gdzr-mme-lcydupl and prescription medicines only as told by your doctor. ? Keep all follow-up visits as told by your doctor. This is important. Contact a doctor if: ? You have a fever. ? The swelling or bruising gets worse. ? You start to get more hematomas. Get help right away if: ? Your pain gets worse. ? Your pain is not getting better with medicine. ? Your skin over the hematoma breaks or starts to bleed. ? Your hematoma is in your chest or belly and you: ? Pass out. ? Feel weak. ? Become short of breath. ? You have a hematoma on your scalp that is caused by a fall or injury, and you: ? Have a headache that gets worse. ? Have trouble speaking or understanding speech. ? Become less alert or you pass out. Summary ? A hematoma is a collection of blood in any part of your body. ? Most hematomas get better on their own in a few days to weeks. Some may need medical care. ? Follow instructions from your doctor about how to care for your hematoma. ? Contact a doctor if the swelling or bruising gets worse, or if you are short of breath. This information is not intended to replace advice given to you by your health care provider. Make sure you discuss any questions you have with your health care provider. Document Released: 05/04/2005 Document Revised: 08/30/2018 Document Reviewed: 08/30/2018 Elsevier Patient Education ? 2019 [employer]. Viruses or Bacteria What?s got you sick? Antibiotics only treat bacterial infections. Viral illnesses cannot be treated with antibiotics. When an antibiotic is not prescribed, ask your healthcare professional for tips on how to relieve symptoms and feel better. Usual Cause Illness Viruses Bacteria Antibiotic Needed Cold/Runny Nose NO Bronchitis/Chest Cold (in otherwise healthy children and adults) NO Whooping Cough Yes Flu NO Strep Throat Yes Sore Throat (except strep) NO Fluid in the middle ear (otitis media with effusion) NO Urinary Tract Infection Yes Antibiotics Aren?t Always the Answer www.cdc.gov/getsmart GET SMART Know When Antibiotics Work [place] Department of Health and Human Services Centers for Disease Control and Prevention December [address] [facility] ECG 12-LEADon 03-24-2020 Atrial Rate [facility] P [place] [facility] P-R Interval [facility] Q-T Interval [facility] Q-T Interval (corrected) [facility] QRS Duration [facility] QTC Calculation (Bezet) [facility] R [place] [facility] T [place] [facility] Ventricular Rate [facility] Hepatic function panelon Albumin [Mass/Vol] 4.8 g/dL 3.2 - 5.2 g/dL [facility] ALP [Catalytic activity/Vol] 84 U/L 40 - 150 U/L [facility] ALT [Catalytic activity/Vol] 37 U/L 0 - 40 U/L [facility] AST [Catalytic activity/Vol] 34 U/L 0 - 45 U/L [facility] Bilirubin [Mass/Vol] 0.6 mg/dL 0 - 1.3 mg/dL [facility] Bilirubin.conjugated [Mass/Vol] 0.2 mg/dL 0 - 0.4 mg/dL [facility] Interpretation and review of laboratory results Normal [facility] Protein [Mass/Vol] 7.0 g/dL 6 - 8 g/dL [facility] Lipid panelon 03-24-2020 Cholesterol [Mass/Vol] 155 mg/dL 100 - 199 mg/dL [facility] Comment on above: National Cholesterol Education Program Guidelines: Cholesterol Desirable: <200 mg/dL Borderline High: 200-239 mg/dL High: greater than or equal to 240 mg/dL Cholesterol in HDL [Mass/Vol] 72 mg/dL 40 - 59 [facility] Cholesterol in LDL [Mass/Vol] 64 mg/dL 10 - 130 mg/dL [facility] Comment on above: National Cholesterol Education Program Guidelines: LDL Cholesterol Optimal: <100 mg/dL Near Optimal/above Optimal: 100-129 mg/dL Borderline High: 130-159 mg/dL High: 160-189 mg/dL Very High: greater than or equal to 190 mg/dL Cholesterol non HDL [Mass/Vol] 83 mg/dL [facility] Comment on above: National Cholesterol Education Program Guidelines: NON HDL Cholesterol Desirable: <130 mg/dL Borderline High: 130-159 mg/dL High: 160-189 mg/dL Very High: > or = 190 mg/dL Cholesterol.total/Cho lesterol in HDL [Mass ratio] 2.2 {ratio} ratio [facility] Comment on above: Males Cholesterol/HD L Ratio: Average risk: 5.0 1/2 average risk: 3.4 2 x average risk: 9.6 Triglyceride [Mass/Vol] 93 mg/dL 30 - 150 mg/dL [facility] Comment on above: National Cholesterol Education Program Guidelines: Triglyceride Normal: <150 mg/dL Borderline High: 150-199 mg/dL High: 200-499 mg/dL Very High: greater than or equal to 500 mg/dL Basic Metabolic Panel 02-08 Anion gap [Moles/Vol] 17 mmol/L 10 - 2 0 mmol/L [facility] Calcium [Mass/Vol] 9.1 mg/dL 8.4 - 10. 2 mg/dL [facility] Chloride [Moles/Vol] 107 mmol/L 98 - 10 8 mmol/L [facility] Creatinine [Mass/Vol] 1.03 mg/dL 0.80 - 1.30 [facility] GFR/1.73 sq M predicted among non-blacks MDRD (S/P/Bld) [Vol rate/Area] The eGFR should be used for monitoring renal function only and not for medication dosing. [facility] GFR/1.73 sq M.predicted CKD-EPI (S/P/Bld) [Vol rate/Area] 77 >=60 mL/min/1.73 m2 [facility] Glucose [Mass/Vol] 87 mg/dL 65 - 99 mg/dL [facility] HCO3 [Moles/Vol] 21 mmol/L 21 - 32 mmol/L [facility] Interpretation and review of laboratory results Normal [facility] Potassium [Moles/Vol] 4.2 mmol/L 3.5 - 5.1 mmol/L [facility] Sodium [Moles/Vol] 141 mmol/L 135 - 145 mmol/L [facility] Urea nitrogen [Mass/Vol] 19 mg/dL 8 - 25 mg/dL [facility] Urea nitrogen/Creatinine [Mass ratio] 18.4 mg/mg [facility] CARDIAC CATHETERIZATIONon Patient Name: RONI JIANG Date of : 1955 Procedure Date: 02/24/2020 Physician(s): Ellen Santana MD Cath #: [id number] Ref. Physician: Kike Perez MD. PROCEDURE(S) PERFORMED: Heart Cath: Left with Coronary Angio & LV gram Intervention: Drug Eluting Stents PROX/MID LAD Intervention: IVUS LAD Intervention: Balloon LAD Clinical History: Dyslipidemia: Yes Other: Hypothyroidism Pre-OP Diagnosis/Indication: ACC Indications: ACS > 24 hrs NSTEMI ASA status unchanged immediately prior to sedation administration. Heart, lungs, and airway assessed prior to sedation. The risks, benefits, and side effects related to alternative treatment options and the risks related to not receiving the proposed interventions and care were discussed with the patient. Following informed consent, the patient was brought to the procedure room in the fasting state. right wrist & bilateral groins was prepped and draped in a sterile fashion. Local anesthesia was attained with 2% lidocaine to the right radial region. Using standard technique, sheath(s) were placed in the following site(s): right radial artery - 5-6F 10cm Glidesheath Slender Catheters were advanced using standard guide wire technique. Multiple angiographic pictures were taken and appropriate pressures obtained. Hemodynamics: Time AIR REST LV 116/10, 13 17:16:21 LVp 124/10, 14 17:16:37 AOp 113/77 (94) 17:16:42 AO 123/86 (103) SA 17:17:10 After review of the angiography and assurance of the patient's stability, the catheter was withdrawn from the sheath and Radial sheath pulled. Radial band used, inflated with 10 mls of air CORONARY_ANGIO/FINDING S Mild, diffuse disease in Left main Complex 80 % proximal lesion in LAD , Drug Eluting Stent to 0 % Pre NORA flow: 3 Post NORA flow: 3 Lesion complexity: High/C Discrete 80 % mid lesion in LAD , Drug Eluting Stent to 0 % Pre NORA flow: 3 Post NORA flow: 3 Lesion complexity: non-high/non-C IVUS: LAD -with inadequate stent expansion, further balloon angioplasty performed to achieve complete stent apposition. Mild, diffuse disease in CIRC Mild, diffuse disease in RCA Ventricular Function: LV Gram- 45% EF with abnormal wall motion - Anterior Apical hypokinesis Valve Function: Valve functions within normal limits. Dominance: Right dominant Drug Eluting Stents PROX/MID LAD IVUS LAD Balloon LAD IVUS: LAD -with inadequate stent expansion, further balloon angioplasty performed to achieve complete stent apposition. POST-OP DIAGNOSIS: Coronary Artery Disease : causing symptoms CARDIAC RECOMMENDATIONS: Medical therapy - Continue COMMENTS: No Complications _ Equipment: Sheath(s) [employer] 5-6F 10CM GLIDESHEATH SLENDER Wire(s) [employer] & ThinkHR .035 X 260CM FIXED J WIRE [employer] .014 X 180CM RUNTHROUGH NS WIRE Catheter(s) DEBRA & ThinkHR 6F JL3.5 DIAG CATH DEBRA & ThinkHR 6F [id number] DIAG CATH Guide(s) DEBRA & ThinkHR 6F XBLAD3.5 GUIDE Balloon(s) [employer] 3.0 x 12 NC EMERGE RX BALLOON [employer] 4.0 x 15 NC EMERGE RX BALLOON [employer] 4.5 x 15 NC EMERGE RX BALLOON Stent(s) [employer] 3.00 X 12 SYNERGY XD MR STENT [employer] 3.50 X 28 SYNERGY XD MR STENT [employer] .014 X 150CM [facility] AND [facility] TRIBES ULTRASOUND CATHETER VASCULAR SOLUTIONS REGULAR R BAND See Nursing Notes for further details Signed By Ellen Santana MD On 02/24/2020 18:01:14 Ellen Santana MD _ [facility] CBC WITH AUTO DIFFERENTIALon 02-25-2020 Basophils (Bld) [#/Vol] 0.05 10*3/uL [facility] Basophils/100 WBC (Bld) 0.7 % [facility] Eosinophils (Bld) [#/Vol] 0.20 10*3/uL [facility] Eosinophils/100 WBC (Bld) 3.0 % [facility] Erythrocyte distribution width (RBC) [Entitic vol] 12.9 % 11.6 - 14.8 % [facility] Hematocrit (Bld) [Volume fraction] 42.2 % 41 - 53 % [facility] Hemoglobin (Bld) [Mass/Vol] 14.0 g/dL 13.5 - 17.5 g/dL [facility] Immature granulocytes (Bld) [#/Vol] 0.03 10*3/uL [facility] Immature granulocytes/100 WBC (Bld) 0.40 % [facility] Comment on above: The IG parameter is the percentage of metamyelocytes, myelocytes and promyelocytes. An immature granulocyte count (IG) of 1% or more suggests the possibility of infection, an IG count of 3% is very likely related to an infection. Interpretation and review of laboratory results Abnormal [facility] Lymphocytes (Bld) [#/Vol] 1.69 10*3/uL [facility] Lymphocytes/100 WBC (Bld) 25.3 % [facility] MCH (RBC) [Entitic mass] 33.5 pg 26 - 34 pg [facility] MCHC (RBC) [Mass/Vol] 33.2 g/dL 31 - 37 g/dL [facility] MCV (RBC) [Entitic vol] 101.0 fL High 80 - 100 fL [facility] Monocytes (Bld) [#/Vol] 0.93 10*3/uL High [facility] Monocytes/100 WBC (Bld) 13.9 % [facility] Neutrophils (Bld) [#/Vol] 3.78 10*3/uL [facility] Neutrophils/100 WBC (Bld) 56.7 % [facility] Nucleated RBC (Bld) [#/Vol] 0.00 10*3/uL [facility] Nucleated RBC/100 WBC (Bld) [Ratio] 0.0 % [facility] Platelet mean volume (Bld) [Entitic vol] 10.4 fL 9.4 - 12.4 fL [facility] Platelets (Bld) [#/Vol] 260 10*3/uL [facility] RBC (Bld) [#/Vol] 4.18 10*6/uL Low [facility] ealt WBC (Bld) [#/Vol] 6.68 10*3/uL [facility]alth ECG 12-LEADon 02-25-2020 Atrial Rate 59 BPM [facility] P [place] 52 degrees [facility] P-R Interval 142 ms [facility] Q-T Interval 488 ms [facility] QRS Duration 90 ms [facility] QTC Calculation (Bezet) 483 ms [facility] R [place] 11 degrees [facility] T [place] 91 degrees [facility] Ventricular Rate 59 BPM [facility] Sinus bradycardia T wave abnormality, consider anterolateral ischemia Prolonged QT Confirmed by LEONARDA AVELAR MD ([id number]) on 02/25/2020 12:54:28 PM [facility] Atrial Rate 60 BPM [facility] P [place] 53 degrees [facility] P-R Interval 158 ms [facility] Q-T Interval 526 ms [facility] QRS Duration 92 ms [facility] QTC Calculation (Bezet) 526 ms [facility] R [place] 25 degrees [facility] T [place] 102 degrees [facility] Ventricular Rate 60 BPM [facility] Normal sinus rhythm T wave abnormality, consider anterolateral ischemia Prolonged QT Confirmed by LEONARDA AVELAR MD ([id number]) on 02/25/2020 7:15:02 AM [facility] PT/INRon 02-25-2020 INR Coag (PPP) [Relative time] 1.1 {INR} [facility] Interpretation and review of laboratory results Normal [facility] PT Coag (PPP) [Time] 13.7 s [facility] During the induction phase of oral anticoagulation, the INR may not reflect the anticoagulation status of the patient. Therapeutic ranges for INR's are: Most clinical situations: INR 2.0-3.0 Mechanical Prosthetic Valve: INR 2.5-3.5 Critical: INR >5.0 [facility] APTTon 02-24-2020 aPTT Coag (Bld) [Time] 87 s High [facility] aPTT Coag (Bld) [Time] Therapeutic range for APTT's is 68 - 104 seconds [facility] Interpretation and review of laboratory results Abnormal [facility] aPTT Coag (Bld) [Time] Therapeutic range for APTT's is 68 - 104 seconds [facility] aPTT Coag (Bld) [Time] 36 s High [facility] Interpretation and review of laboratory results Abnormal [facility] Basic Metabolic Panel 02-08 Anion gap [Moles/Vol] 12 mmol/L 10 - 2 0 mmol/L [facility] Calcium [Mass/Vol] 9.2 mg/dL 8.4 - 10. 2 mg/dL [facility] Chloride [Moles/Vol] 106 mmol/L 98 - 10 8 mmol/L [facility] Creatinine [Mass/Vol] 0.98 mg/dL 0.80 - 1.30 [facility] GFR/1.73 sq M predicted among non-blacks MDRD (S/P/Bld) [Vol rate/Area] The eGFR should be used for monitoring renal function only and not for medication dosing. [facility] GFR/1.73 sq M.predicted CKD-EPI (S/P/Bld) [Vol rate/Area] 82 >=60 mL/min/1.73 m2 [facility] Glucose [Mass/Vol] 105 mg/dL High 65 - 99 mg/dL [facility] HCO3 [Moles/Vol] 25 mmol/L 21 - 32 mmol/L [facility] Interpretation and review of laboratory results Abnormal [facility] Potassium [Moles/Vol] 4.2 mmol/L 3.5 - 5.1 mmol/L [facility] Sodium [Moles/Vol] 139 mmol/L 135 - 145 mmol/L [facility] Urea nitrogen [Mass/Vol] 17 mg/dL 8 - 25 mg/dL [facility] Urea nitrogen/Creatinine [Mass ratio] 17.3 mg/mg [facility] CBCon 02-24-2020 Erythrocyte distribution width (RBC) [Entitic vol] 13.0 % 11.6 - 14.8 % [facility] Hematocrit (Bld) [Volume fraction] 41.5 % 41 - 53 % [facility] Hemoglobin (Bld) [Mass/Vol] 13.6 g/dL 13.5 - 17.5 g/dL [facility] Interpretation and review of laboratory results Abnormal [facility] MCH (RBC) [Entitic mass] 33.1 pg 26 - 34 pg [facility] MCHC (RBC) [Mass/Vol] 32.8 g/dL 31 - 37 g/dL [facility] MCV (RBC) [Entitic vol] 101.0 fL High 80 - 100 fL [facility] Nucleated RBC (Bld) [#/Vol] 0.00 10*3/uL [facility] Nucleated RBC/100 WBC (Bld) [Ratio] 0.0 % [facility] Platelet mean volume (Bld) [Entitic vol] 10.1 fL 9.4 - 12.4 fL [facility] Platelets (Bld) [#/Vol] 234 10*3/uL [facility] RBC (Bld) [#/Vol] 4.11 10*6/uL [facility] WBC (Bld) [#/Vol] 6.83 10*3/uL [facility] ECG 12-LEADon 02-24-2020 Atrial Rate 59 BPM [facility] P [place] 53 degrees [facility] P-R Interval 144 ms [facility] Q-T Interval 522 ms [facility] QRS Duration 96 ms [facility] QTC Calculation (Bezet) 516 ms [facility] R [place] 31 degrees [facility] T [place] 108 degrees [facility] Ventricular Rate 59 BPM [facility] Sinus bradycardia T wave abnormality, consider anterolateral ischemia Prolonged QT Confirmed by LEONARDA VAELAR MD ([id number]) on 02/24/2020 4:26:30 PM [facility] Atrial Rate 62 BPM [facility] P [place] 54 degrees [facility] P-R Interval 146 ms [facility] Q-T Interval 518 ms [facility] QRS Duration 94 ms [facility] QTC Calculation (Bezet) 525 ms [facility] R [place] 26 degrees [facility] T [place] 108 degrees [facility] Ventricular Rate 62 BPM [facility] Normal sinus rhythm T wave abnormality, consider anterolateral ischemia Prolonged QT Confirmed by LEONARDA AVELAR MD ([id number]) on 02/24/2020 4:26:26 PM [facility] Atrial Rate 59 BPM [facility] P [place] 56 degrees [facility] P-R Interval 142 ms [facility] Q-T Interval 530 ms [facility] QRS Duration 94 ms [facility] QTC Calculation (Bezet) 524 ms [facility] R [place] 29 degrees [facility] T [place] 108 degrees [facility] Ventricular Rate 59 BPM [facility] Sinus bradycardia T wave abnormality, consider anterolateral ischemia Prolonged QT Confirmed by LEONARDA AVELAR MD ([id number]) on 02/24/2020 4:26:21 PM [facility] Atrial Rate 59 BPM [facility] P [place] 56 degrees [facility] P-R Interval 142 ms [facility] Q-T Interval 532 ms [facility] QRS Duration 94 ms [facility] QTC Calculation (Bezet) 526 ms [facility] R [place] 27 degrees [facility] T [place] 109 degrees [facility] Ventricular Rate 59 BPM [facility] T wave abnormality, consider anterolateral ischemia Prolonged QT Confirmed by LEONARDA AVELAR MD ([id number]) on 02/24/2020 1:18:02 PM [facility] Hemoglobin A1con 02-24-2020 Average glucose Estimated from glycated hemoglobin mass conc (Bld) 97 mg/dL 74 - 114 mg/dL [facility] HbA1c (Bld) [Mass fraction] 5.0 % 4.2 - 5.6 % [facility] Interpretation and review of laboratory results Normal [facility] Normal: 4.2% - 5.6% Increased risk for diabetes: 5.7% - 6.4% Diabetes: >= 6.5% Pediatrics: No established reference range Estimated average glucose: 74-114 mg/dL [facility] Lipid Panelon 02-24-2020 Cholesterol [Mass/Vol] 188 mg/dL 100 - 199 mg/dL [facility] Comment on above: National Cholesterol Education Program Guidelines: Cholesterol Desirable: <200 mg/dL Borderline High: 200-239 mg/dL High: greater than or equal to 240 mg/dL Cholesterol in HDL [Mass/Vol] 82 mg/dL 40 - 59 [facility] Cholesterol in LDL [Mass/Vol] 87 mg/dL 10 - 130 mg/dL [facility] Comment on above: National Cholesterol Education Program Guidelines: LDL Cholesterol Optimal: <100 mg/dL Near Optimal/above Optimal: 100-129 mg/dL Borderline High: 130-159 mg/dL High: 160-189 mg/dL Very High: greater than or equal to 190 mg/dL Cholesterol non HDL [Mass/Vol] 106 mg/dL [facility] Comment on above: National Cholesterol Education Program Guidelines: NON HDL Cholesterol Desirable: <130 mg/dL Borderline High: 130-159 mg/dL High: 160-189 mg/dL Very High: > or = 190 mg/dL Cholesterol.total/Cho lesterol in HDL [Mass ratio] 2.3 {ratio} ratio [facility] Comment on above: Males Cholesterol/HD L Ratio: Average risk: 5.0 1/2 average risk: 3.4 2 x average risk: 9.6 Triglyceride [Mass/Vol] 97 mg/dL 30 - 150 mg/dL [facility] Comment on above: National Cholesterol Education Program Guidelines: Triglyceride Normal: <150 mg/dL Borderline High: 150-199 mg/dL High: 200-499 mg/dL Very High: greater than or equal to 500 mg/dL TSHon 02-24-2020 Interpretation and review of laboratory results Normal [facility] TSH Qn 3.93 m[IU]/L [facility] Basic Metabolic Panelon 02-08 Anion gap [Moles/Vol] 15 mmol/L 10 - 2 0 mmol/L [facility] Calcium [Mass/Vol] 8.9 mg/dL 8.4 - 10. 2 mg/dL [facility] Chloride [Moles/Vol] 106 mmol/L 98 - 10 8 mmol/L [facility] Creatinine [Mass/Vol] 0.95 mg/dL 0.80 - 1.30 [facility] GFR/1.73 sq M predicted among non-blacks MDRD (S/P/Bld) [Vol rate/Area] The eGFR should be used for monitoring renal function only and not for medication dosing. [facility] GFR/1.73 sq M.predicted CKD-EPI (S/P/Bld) [Vol rate/Area] 99 >=60 mL/min/1.73 m2 [facility] GFR/1.73 sq M.predicted CKD-EPI (S/P/Bld) [Vol rate/Area] 85 >=60 mL/min/1.73 m2 [facility] Glucose [Mass/Vol] 107 mg/dL High 65 - 99 mg/dL [facility] HCO3 [Moles/Vol] 24 mmol/L 21 - 32 mmol/L [facility] Interpretation and review of laboratory results Abnormal [facility] Potassium [Moles/Vol] 4.4 mmol/L 3.5 - 5.1 mmol/L [facility] Sodium [Moles/Vol] 141 mmol/L 135 - 145 mmol/L [facility] Urea nitrogen [Mass/Vol] 21 mg/dL 8 - 25 mg/dL [facility] Urea nitrogen/Creatinine [Mass ratio] 22.1 mg/mg High [facility] CBCon 02-23-2020 Erythrocyte distribution width (RBC) [Entitic vol] 13.1 % 11.6 - 14.8 % [facility] Hematocrit (Bld) [Volume fraction] 42.4 % 41 - 53 % [facility] Hemoglobin (Bld) [Mass/Vol] 14.1 g/dL 13.5 - 17.5 g/dL [facility] Interpretation and review of laboratory results Abnormal [facility] MCH (RBC) [Entitic mass] 34.0 pg 26 - 34 pg [facility] MCHC (RBC) [Mass/Vol] 33.3 g/dL 31 - 37 g/dL [facility] MCV (RBC) [Entitic vol] 102.2 fL High 80 - 100 fL [facility] Nucleated RBC (Bld) [#/Vol] 0.00 10*3/uL [facility] Nucleated RBC/100 WBC (Bld) [Ratio] 0.0 % [facility] Platelet mean volume (Bld) [Entitic vol] 10.1 fL 9.4 - 12.4 fL [facility] Platelets (Bld) [#/Vol] 228 10*3/uL [facility] RBC (Bld) [#/Vol] 4.15 10*6/uL Low [facility] WBC (Bld) [#/Vol] 9.15 10*3/uL [facility] Magnesiumon 02-23-2020 Interpretation and review of laboratory results Normal [facility] Magnesium [Mass/Vol] 2.1 mg/dL 1.6 - 2 .4 mg/dL [facility] Vital Signs Date Time Vital Sign Value Performing Clinician Faci lity 03-21-2024 12:43-0500 Diastolic blood pressure 77 mm[Hg] Ruben Santana MD Work Phone: [facility] 03-21-2024 12:43-0500 Heart rate 60 /min Ruben Santana MD Work Phone: [facility] 03-21-2024 12:43-0500 Systolic blood pressure 143 mm[Hg] Ruben Santana MD Work Phone: [facility] 03-21-2024 12:37-0500 Body height 177.8 cm Ruben Santana MD Work Phone: [facility] 03-21-2024 12:37-0500 Body mass index (BMI) [Ratio] 29.84 kg/m2 Ruben Santana MD Work Phone: [facility] 03-21-2024 12:37-0500 Body weight 94.35 kg Ruben Santana MD Work Phone: [facility] 03-23-2021 07:48-0500 Body height 177.8 cm Ruben Santana MD Work Phone: [facility] 03-23-2021 07:48-0500 Body mass index (BMI) [Ratio] 30.56 kg/m2 Ruben Santana MD Work Phone: [facility] 03-23-2021 07:48-0500 Body weight 96.62 kg Ruben Santana MD Work Phone: [facility] 03-23-2021 07:48-0500 Diastolic blood pressure 79 mm[Hg] Ruben Santana MD Work Phone: [facility] 03-23-2021 07:48-0500 Heart rate 53 /min Ruben Santana MD Work Phone: [facility] 03-23-2021 07:48-0500 Systolic blood pressure 124 mm[Hg] Ruben Santana MD Work Phone: [facility] 03-24-2020 08:11-0500 BMI (Body Mass Index) 30.89 kg/m2 Ruben Santana [facility] 03-24-2020 08:11-0500 Body weight 97.66 kg Ruben Santana [facility] 03-24-2020 08:11-0500 BP Diastolic 76 mm[Hg] Ruben Santana [facility] 03-24-2020 08:11-0500 BP Systolic 129 mm[Hg] Ruben Santana [facility] 03-24-2020 08:11-0500 Pulse (Heart Rate) 60 /min Ruben Santana [facility] 02-25-2020 11:15-0500 Pulse (Heart Rate) 64 /min [facility] 02-25-2020 08:12-0500 Body Temperature 97.9 [degF] [facility] 02-25-2020 08:12-0500 BP Diastolic 87 mm[Hg] [facility] 02-25-2020 08:12-0500 BP Systolic 145 mm[Hg] [facility] 02-25-2020 08:12-0500 Pulse Oximetry 99 % [facility] 02-25-2020 08:12-0500 Respiratory Rate 18 /min [facility] 02-23-2020 19:58-0500 BMI (Body Mass Index) 29.39 kg/m2 [facility] 02-23-2020 19:58-0500 Body weight 92.9 kg [facility] 02-23-2020 19:58-0500 Height 177.8 cm [facility] Encounters Encounter Date Encounter Type Care Provider Facility Start: 04-25-2024 ambulatory KIKE Gemini [facility] Start: 03-21-2024 End: 03-21-2024 Office outpatient visit 15 minutes Ruben Santana MD Work Phone: [facility] Comment on above: Coronary artery dise ase, unspecified vessel or lesion type, unspecified whether angina present, unspecified whether point hope ira or transplanted heart (Primary Dx); Dyslipidemia Start: 03-21-2024 End: 03-22-2024 ambulatory KIKE PEREZ [facility] Ambulatory Start: 03-04-2024 End: 03-04-2024 Orders Only Ruben Santana MD Work Phone: [facility] Comment on above: Coronary artery dise ase, unspecified vessel or lesion type, unspecified whether angina present, unspecified whether point hope ira or transplanted heart (Primary Dx) Start: 08-27-2021 Encounter for genera l adult medical examination without abnormal findings DR KIKE PEREZ [facility] Start: 08-24-2021 End: 08-25-[address] KIKE PEREZ Facility:[facility] Start: 08-24-2021 End: 08-25-2021 Encounter for general adult medical examination without abnormal findings DR KIKE PEREZ Facility:[facility] Start: 03-23-2021 End: 03-23-2021 Office outpatient visit 10 minutes Ruben Santana MD Work Phone: [facility] Comment on above: Coronary artery dise ase, angina presence unspecified, unspecified vessel or lesion type, unspecified whether point hope ira or transplanted heart Start: 03-02-2021 Orders Only Ruben Santana MD Work Phone: [facility] Comment on above: Coronary artery dise ase, angina presence unspecified, unspecified vessel or lesion type, unspecified whether point hope ira or transplanted heart (Primary Dx) Start: 09-21-2020 End: 09-21-2020 Refill Ruben Santana MD Work Phone: [facility] Comment on above: medication cost Start: 03-24-2020 End: 03-28-2020 Patient encounter procedure KIKE Gemini [facility] Start: 03-24-2020 End: 03-24-2020 Office outpatient visit 10 minutes Ruben Santana Work Phone: [facility] Comment on above: Dyslipidemia (Primar y Dx); Coronary artery disease, angina presence unspecified, unspecified vessel or lesion type, unspecified whether point hope ira or transplanted heart Start: 02-25-2020 End: 02-25-2020 Documentation procedure Dolores Nichole [facility] Start: 02-23-2020 End: 02-25-2020 Evaluation and management of inpatient [facility] Start: 02-23-2020 End: 02-25-2020 Evaluation and management of inpatient [facility] Work Phone: [facility] Comment on above: NSTEMI (non-ST eleva meme myocardial infarction) (HCC) (Primary Dx); ACS (acute coronary syndrome) ([facility]) Start: 10-02-2017 End: 10-03-2017 Ambulatory DEFAULT PHYSICIAN Facility:[facility] Procedures Date Procedure Procedure Detail Performing Clinician Start: 03-21-2024 Ecg routine ecg w/le ast 12 lds w/i&r Ruben Santana MD Work Phone: Start: 08-24-[address] TIMBO PEREZ Comment on above: Performed By: #### P [facility] #### [facility] [address] [place] [address] Dr. Fredy Trejo Start: 03-23-2021 Ecg routine ecg w/le ast 12 lds w/i&r Ruben Santana MD Work Phone: Start: 03-24-2020 12 lead ECG Ruben Santana Work Phone: Start: 02-25-2020 12 lead ECG Ruben Santana Work Phone: Start: 02-25-2020 Basic metabolic 2000 panel - Serum or Plasma Emily Malikbienvenido Wild Work Phone: Start: 02-25-2020 INR in Platelet poor plasma by Coagulation assay You Blake Work Phone: Start: 02-25-2020 Complete blood count with white cell differential, automated You Blake Work Phone: Start: 02-25-2020 Complete blood count with white cell differential, manual You Blake Work Phone: Start: 02-24-2020 Complete blood count (hemogram) panel - Blood by Automated count Ruben Santana Work Phone: Start: 02-24-2020 12 lead ECG You Blake Work Phone: Start: 02-24-2020 Cardiac catheterization You Blake Work Phone: Start: 02-24-2020 APTT - reference Juana bienvenido Donya Wild Work Phone: Start: 02-24-2020 End: 02-24-2020 12 lead ECG Emily Malikbienvenido Wild Work Phone: Start: 02-24-2020 APTT - reference Juana faria Donya Wild Work Phone: Start: 02-24-2020 Basic metabolic 2000 panel - Serum or Plasma Emily Malikbienvenido Wild Work Phone: Start: 02-24-2020 Hemoglobin A1c/Hemoglobin.total in Blood Emily Donya Wild Work Phone: Start: 02-24-2020 Lipid 1996 panel - S leticia or Plasma Emily Wild Work Phone: Start: 02-23-2020 Basic metabolic 2000 panel - Serum or Plasma Emily Wild Work Phone: Start: 02-23-2020 Complete blood count (hemogram) panel - Blood by Automated count Emily Wild Work Phone: Start: 02-23-2020 Magnesium [Mass/volu me] in Serum or Plasma Emily Wild Work Phone: Start: 02-23-2020 Thyrotropin [Units/v olume] in Serum or Plasma by Detection limit <= 0.005 mIU/L Emily Wild Work Phone: Plan of Treatment Date Care Activity Detail Author Start: 2032 Respiratory Syncytia l Virus Immunization: Risk, 60-74 Risk, or 75+ (1 - 1-dose 75+ series) Respiratory Syncytial Virus Immunization: Risk, 60-74 Risk, or 75+ (1 - 1-dose 75+ series) [facility] Start: 03-25-2025 Pneumococcal Vaccine : Ped or At-Risk (2 of 2 - PPSV23) Pneumococcal Vaccine: Ped or At-Risk (2 of 2 - PPSV23) [facility] Start: 03-21-2024 End: 03-21-2025 Apolipoprotein B [Mass/volume] in Serum or Plasma Apolipoprotein B Lab Routine Dyslipidemia Expected: 03/21/2024 (Approximate), Expires: 03/21/2025 [facility] Comment on above: Expected: 03/21/2024 (Approximate), Expires: 03/21/2025 Start: 03-21-2024 End: 03-21-2025 C reactive protein [Mass/volume] in Serum or Plasma by High sensitivity method High sensitivity CRP Lab Routine Dyslipidemia Expected: 03/21/2024 (Approximate), Expires: 03/21/2025 [facility] Comment on above: Expected: 03/21/2024 (Approximate), Expires: 03/21/2025 Start: 03-21-2024 End: 03-21-2025 Hepatic function 2000 panel - Serum or Plasma Hepatic function panel Lab Routine Dyslipidemia Expected: 03/21/2024 (Approximate), Expires: 03/21/2025 [facility] Comment on above: Expected: 03/21/2024 (Approximate), Expires: 03/21/2025 Start: 03-21-2024 End: 03-21-2025 Lipid 1996 panel - Serum or Plasma Lipid Panel Lab Routine Dyslipidemia Expected: 03/21/2024 (Approximate), Expires: 03/21/2025 [facility] Work Phone: Comment on above: Expected: 03/21/2024 (Approximate), Expires: 03/21/2025 Start: 03-21-2024 End: 03-21-2025 Lipoprotein (a) measurement Lipoprotein A (LPA) Lab Routine Dyslipidemia Expected: 03/21/2024 (Approximate), Expires: 03/21/2025 [facility] Comment on above: Expected: 03/21/2024 (Approximate), Expires: 03/21/2025 Start: 03-21-2024 End: 03-21-2024 Patient encounter procedure 03/21/2024 1:00 PM EST Office Visit [facility] [address] [place] [address] Dr Hilton [address] [place] [phone] Ruben Santana MD [address] [address] [facility] Start: 12-10-2023 COVID-19 Vaccine ( season) COVID-19 Vaccine ( season) [facility] Start: 12-10-2023 Influenza vaccination Influenza Vacc ine (#1) [facility] Start: 2022 Fall risk assessment Falls Risk Asse ssment [facility] Start: 03-23-2021 End: 03-23-2021 Patient encounter procedure 03/23/2021 Office Visit Cardiology Ruben Santana MD [address] [address] [facility] Start: 12-09-2020 Influenza vaccination Sequenti al Influenza Vaccine (#1) [facility] Start: 2017 Respiratory Syncytia l Virus Immunization: Risk, 60-74 Risk, or 75+ (1 - Risk 60-74 years 1-dose series) Respiratory Syncytial Virus Immunization: Risk, 60-74 Risk, or 75+ (1 - Risk 60-74 years 1-dose series) [facility] Start: 2007 Screening for malign ant neoplasm of colon [facility] Start: 1975 Hepatitis C antibody , confirmatory test Hepatitis C Screening [facility] Start: 1975 Hepatitis C screening Hepatitis C Sc reening [facility] Start: 1972 HIV screening HIV Screening [facility] Start: 1969 Adolescent depressio n screening assessment Depression Screening (PHQ9) [facility] Start: 1969 COVID-19 Vaccine (1) COVID-19 Vaccin e (1) [facility] Start: 1969 Depression screening using PHQ-9 (Patient Health Questionnaire 9) score [facility] Start: 1963 Pneumococcal Vaccine : Ped or At-Risk (1 of 2 - PPSV23) Pneumococcal Vaccine: Ped or At-Risk (1 of 2 - PPSV23) [facility] Start: 1960 History and physical examination, annual for health maintenance Wellness Visit [facility] Start: 1957 Abdominal aortic aneurysm screening Abdominal Aortic Ultrasound [facility] Start: 1957 Prostate specific antigen measurement PSA Level [facility] Start: 1957 Screening for malign ant neoplasm of colon [facility] Start: 1957 Tetanus vaccination Tetanus: Every 1 0yrs [facility] End: 02-24-2020 12 lead ECG ECG 12 Lead ECG Routine Once for 1 Occurrences starting 02/24/2020 until 02/24/2020 [facility] Comment on above: Once for 1 Occurrenc es starting 02/24/2020 until 02/24/2020 End: 03-02-2022 12 lead ECG ECG 12 Lead ECG Routine Coronary artery disease, angina presence unspecified, unspecified vessel or lesion type, unspecified whether point hope ira or transplanted heart 1 Occurrences starting 03/02/2021 until 03/02/2022 [facility] Work Phone: Comment on above: 1 Occurrences starti ng 03/02/2021 until 03/02/2022 End: 03-04-2025 12 lead ECG ECG 12 Lead ECG Routine Coronary artery disease, unspecified vessel or lesion type, unspecified whether angina present, unspecified whether point hope ira or transplanted heart 1 Occurrences starting 03/04/2024 until 03/04/2025 [facility] Work Phone: Comment on above: 1 Occurrences starti ng 03/04/2024 until 03/04/2025 Immunizations Immunization Date Immunization Notes Care Provider Fa cility 01-11-2023 influenza virus vacc ine, unspecified formulation Ruben Santana MD Work Phone: [facility] Payers Date Payer Category Payer Unknown [id number] 2021 Managed Care HMO (unspecified) [facility] HMO/CHOICE PLUS/DEBBIE/DEBBIE PLUS Member Subscriber Plan / Payer (Effective 2021-Present) Name: Roni Jiang Relation to Subscriber: Self Name: Roni Jiang Payer ID: [id number] (NAIC) Group ID: Not on file Type: Not on file Address: [place] [id number] 2020 Unknown 2020 Unknown OBED HAIRSTON/FADY/HMO/PPO [id number] 2020-Present [id number] 2020 Unknown [id number] 1959 Private Health Insurance [id number] 1957 Unknown [id number] 1957 Unknown [id number] 1957 Unknown [id number] 1957 Unknown [id number] 1957 Unknown [id number] Social History Date Type Detail Facility Start: 02-25-2020 End: 03-21-2024 Tobacco smoking status NHIS Former smoker [facility] End: 04-10-1994 History of tobacco use Current smoker [facility] Start: 02-25-2020 End: 03-21-2024 Tobacco use and exposure Never used [facility] Start: 02-25-2020 End: 03-21-2024 Alcohol intake Current drinker of alcohol (finding) [facility] Start: 02-23-2020 End: 03-24-2020 History SDOH Alcohol Frequency 2 [facility] Start: 02-23-2020 End: 03-24-2020 History SDOH Alcohol Std Drinks 99 [facility] Start: 1955 Sex Assigned At Not on file [facility] Exposure to SARS-CoV -2 (event) Not sure [facility] End: 04-10-1994 History of tobacco use Cigarette Smoker [facility] Start: 06-28-2023 End: 03-21-2024 Alcoholic beverage intake [facility] Start: 03-24-2020 End: 03-21-2024 Alcohol Use Disorder Identification Test - Consumption [AUDIT-C] [facility] How often to you hav e a drink containing alcohol? Monthly or less [facility] How many standard dr inks containing alcohol do you have on a typical day? Not asked [facility] Start: 02-15-2022 Alcohol Comment 1 glass a wine a wee k [facility] Start: 02-23-2020 Gender identity Identifies as male gender (finding) [facility] Start: 02-23-2020 Sexual orientation Heterosexual (fin ding) [facility] Medical Equipment Procedure Code Equipment Code Equipment Origin al Text Equipment Identifier Dates Stent 3.00 X 12 [employer] Xd Mr - [id number] , [id number] FDA Start: 02-24-2020 Stent 3.50 X 28 [employer] Xd Mr - [id number] , [id number] FDA Start: 02-24-2020 Progress note 03-21-2024 Note Date & Type Note Facility 03-21-2024 Note [facility] [address] [place] [address] [place] [id number] Subjective: Roni Jiang is a 68 y.o. male seen in the office today for Annual Exam HPI: Roni Jiang is a very pleasant 68 y.o. year old male who presents for a cardiology consultation who has a history of coronary disease with prior stenting to the LAD system in 2019. At that time 2 stents were placed in his mid as well as proximal LAD. His circumflex and right coronary were all free of significant disease and his LV function looks reasonly preserved. He is very active and bikes during the summer and now is walking his dog on a regular basis. He has no symptoms of angina. His blood pressure was slightly elevated today and for that reason I will have him monitor his blood pressures at home and send them into us. He states he has not had lipids done in a while therefore I will get some lipids checked today as well as LFTs, high-sensitivity CRP, APO B and LP(a). His physical exam today was unrevealing as well as his EKG which looked normal. Hopefully by controlling his risk factors we can prevent future cardiac events. Thank you very much Physical Examination: BP (!) 143/77 (BP Location: Left arm, Patient Position: Sitting) Pulse 60 Ht 5' 10 Wt 94.3 kg (208 lb) BMI 29.84 kg/m Physical Exam Vitals and nursing note reviewed. Cardiovascular: Rate and Rhythm: Normal rate and regular rhythm. No extrasystoles are present. Pulses: Carotid pulses are 2+ on the right side and 2+ on the left side. Radial pulses are 2+ on the right side and 2+ on the left side. Posterior tibial pulses are 2+ on the right side and 2+ on the left side. Heart sounds: Murmur heard. Medium-pitched musical midsystolic murmur is present with a grade of 1/6 at the lower left sternal border. Pulmonary: Effort: Pulmonary effort is normal. Breath sounds: Normal breath sounds and air entry. I agree with the Review of Systems done during the patient visit by the MA. EKG: normal EKG, normal sinus rhythm, unchanged from previous tracings. Assessment & Plan: No problem-specific Assessment & Plan notes found for this encounter. Histories: Past Medical History: Diagnosis Date Arthritis Coronary artery disease 02/23/2020 Hypertension Hypothyroidism Myocardial infarction (HCC) 02/22/2020 Past Surgical History: Procedure Laterality Date CARDIAC CATHETERIZATION N/A 02/24/2020 Procedure: Left Heart Cath Possible PTCA/Stent; Surgeon: Ruben Santana MD; Location: [facility]; Service: Cardiovascular CORONARY STENT PLACEMENT 02/23/2020 Family History Problem Relation Age of Onset Diabetes Father Heart attack Father Heart attack Maternal Uncle Heart disease Maternal Uncle Social History Tobacco Use Smoking status: Former Current packs/day: 0.00 Average packs/day: 0.3 packs/day for 10.0 years (2.5 ttl pk-yrs) Types: Cigarettes Quit date: 04/10/1994 Years since quittin.9 Smokeless tobacco: Never Vaping Use Vaping status: Never Used Substance Use Topics Alcohol use: Yes Alcohol/week: 2.0 standard drinks of alcohol Types: 2 Standard drinks or equivalent per week Comment: 1 glass a wine a week Drug use: Never Patient's Medications New Prescriptions No medications on file Previous Medications ASPIRIN 81 MG EC TABLET Take 1 (one) tablet (81 mg total) by mouth daily . ATORVASTATIN (LIPITOR) 80 MG TABLET Take 1 (one) tablet (80 mg total) by mouth nightly . DICLOFENAC SODIUM (VOLTAREN) 75 MG EC TABLET Take 1 (one) tablet (75 mg total) by mouth daily . LEVOTHYROXINE (SYNTHROID, LEVOTHROID) 75 MCG TABLET Take 1 (one) tablet (75 mcg total) by mouth once daily . METOPROLOL TARTRATE (LOPRESSOR) 25 MG TABLET Take 1 (one) tablet (25 mg total) by mouth 2 (two) times a day . NITROGLYCERIN (NITROSTAT) 0.[address] 1 (one) tablet (0.4 mg total) under the tongue every 5 (five) minutes as needed for chest pain . Modified Medications No medications on file Discontinued Medications No medications on file No Known Allergies Overview of Problems Addressed: Problem Coronary Artery Disease Objective: Orders Placed This Encounter Lipid Panel Hepatic function panel High sensitivity CRP Apolipoprotein B Lipoprotein A (LPA) Follow Up Ordered: Return in about 2 years (around 03/21/2026). Ruben Santana MD AUTHENTICATED BY RUBEN SANTANA, ON 03/21/2024 13:15:13 [facility] History of Present illness Narrative 03-21-2024 Ruben Santana MD - 03/21/2024 1:00 PM Ema Palmer MA - 03/21/2024 12:37 PM EST Note Date & Type Note Facility 03-21-2024 History of Presen t illness Narrative [facility] [address] [place] [address] [place] [id number] Subjective: Roni Jiang is a 68 y.o. male seen in the office today for Annual Exam HPI: Roni Jiang is a very pleasant 68 y.o. year old male who presents for a cardiology consultation who has a history of coronary disease with prior stenting to the LAD system in 2019. At that time 2 stents were placed in his mid as well as proximal LAD. His circumflex and right coronary were all free of significant disease and his LV function looks reasonly preserved. He is very active and bikes during the summer and now is walking his dog on a regular basis. He has no symptoms of angina. His blood pressure was slightly elevated today and for that reason I will have him monitor his blood pressures at home and send them into us. He states he has not had lipids done in a while therefore I will get some lipids checked today as well as LFTs, high-sensitivity CRP, APO B and LP(a). His physical exam today was unrevealing as well as his EKG which looked normal. Hopefully by controlling his risk factors we can prevent future cardiac events. Thank you very much Physical Examination: BP (!) 143/77 (BP Location: Left arm, Patient Position: Sitting) Pulse 60 Ht 5' 10 Wt 94.3 kg (208 lb) BMI 29.84 kg/m Physical Exam Vitals and nursing note reviewed. Cardiovascular: Rate and Rhythm: Normal rate and regular rhythm. No extrasystoles are present. Pulses: Carotid pulses are 2+ on the right side and 2+ on the left side. Radial pulses are 2+ on the right side and 2+ on the left side. Posterior tibial pulses are 2+ on the right side and 2+ on the left side. Heart sounds: Murmur heard. Medium-pitched musical midsystolic murmur is present with a grade of 1/6 at the lower left sternal border. Pulmonary: Effort: Pulmonary effort is normal. Breath sounds: Normal breath sounds and air entry. I agree with the Review of Systems done during the patient visit by the MA. EKG: normal EKG, normal sinus rhythm, unchanged from previous tracings. Assessment & Plan: No problem-specific Assessment & Plan notes found for this encounter. Histories: Past Medical History: Diagnosis Date Arthritis Coronary artery disease 02/23/2020 Hypertension Hypothyroidism Myocardial infarction (HCC) 02/22/2020 Past Surgical History: Procedure Laterality Date CARDIAC CATHETERIZATION N/A 02/24/2020 Procedure: Left Heart Cath Possible PTCA/Stent; Surgeon: Ruben Santana MD; Location: [facility]; Service: Cardiovascular CORONARY STENT PLACEMENT 02/23/2020 Family History Problem Relation Age of Onset Diabetes Father Heart attack Father Heart attack Maternal Uncle Heart disease Maternal Uncle Social History Tobacco Use Smoking status: Former Current packs/day: 0.00 Average packs/day: 0.3 packs/day for 10.0 years (2.5 ttl pk-yrs) Types: Cigarettes Quit date: 04/10/1994 Years since quittin.9 Smokeless tobacco: Never Vaping Use Vaping status: Never Used Substance Use Topics Alcohol use: Yes Alcohol/week: 2.0 standard drinks of alcohol Types: 2 Standard drinks or equivalent per week Comment: 1 glass a wine a week Drug use: Never Patient's Medications New Prescriptions No medications on file Previous Medications ASPIRIN 81 MG EC TABLET Take 1 (one) tablet (81 mg total) by mouth daily . ATORVASTATIN (LIPITOR) 80 MG TABLET Take 1 (one) tablet (80 mg total) by mouth nightly . DICLOFENAC SODIUM (VOLTAREN) 75 MG EC TABLET Take 1 (one) tablet (75 mg total) by mouth daily . LEVOTHYROXINE (SYNTHROID, LEVOTHROID) 75 MCG TABLET Take 1 (one) tablet (75 mcg total) by mouth once daily . METOPROLOL TARTRATE (LOPRESSOR) 25 MG TABLET Take 1 (one) tablet (25 mg total) by mouth 2 (two) times a day . NITROGLYCERIN (NITROSTAT) 0.[address] 1 (one) tablet (0.4 mg total) under the tongue every 5 (five) minutes as needed for chest pain . Modified Medications No medications on file Discontinued Medications No medications on file No Known Allergies Overview of Problems Addressed: Problem Coronary Artery Disease Objective: Orders Placed This Encounter Lipid Panel Hepatic function panel High sensitivity CRP Apolipoprotein B Lipoprotein A (LPA) Follow Up Ordered: Return in about 2 years (around 03/21/2026). Ruben Santana MD Grant Officer: No documented in this encounter [facility] Instructions 03-21-2024 Patient Instructions Note Date & Type Note Facility 03-21-2024 Instructions Sharon Truong RN - 03/21/2024 12:59 PM EST If you have any questions, please do not hesitate to call me at [phone]. Sharon Truong, RN, BSN Nurse Engine Lathe Set Up Operator Tool for Dr. Talon Santana & You Blake NP [facility] [address] [facility] [address] [place] [address] documented in this encounter [facility] History of Present illness Narrative 03-23-2021 Ruben Santana MD - 03/23/2021 8:28 AM Guilherme Guillen MA - 03/23/2021 7:47 AM Guilherme Guillen MA - 03/23/2021 7:46 AM EST Note Date & Type Note Facility 03-23-2021 History of Presen t illness Narrative [facility] [address] [facility] [address] [facility] [id number] Subjective: Roni Jiang is a 65 y.o. male seen in the office today for Follow-up (1 year ) HPI: Roni Jiang is a very pleasant 65 y.o. year old male who presents for a cardiology consultation who has a history of coronary disease and last year was admitted with acute coronary syndrome and had 2 stents placed in his LAD system. He has been doing well from a cardiovascular standpoint. He did have a nosebleed here in the last few days but otherwise has been doing well. As it has been more than a year since his stents were placed I think we can safely stop his clopidogrel and continue just a baby aspirin daily. From a cardiovascular standpoint he seems to be doing quite well and is staying active without any symptoms of angina. Hopefully will continue to do well and from a cardiovascular standpoint I do not see any active issues. His physical exam is completely normal as well as his EKG with sinus bradycardia. Hopefully will continue to do well and remain symptom-free. If something should change please let me know. Thank you very much Physical Examination: BP 124/79 (BP Location: Left arm, Patient Position: Sitting, BP Cuff Size: Adult) Pulse (!) 53 Ht 5' 10 Wt 96.6 kg (213 lb) BMI 30.56 kg/m Physical Exam Vitals and nursing note reviewed. Cardiovascular: Rate and Rhythm: Regular rhythm. Bradycardia present. No extrasystoles are present. Pulses: Carotid pulses are 2+ on the right side and 2+ on the left side. Radial pulses are 2+ on the right side and 2+ on the left side. Posterior tibial pulses are 2+ on the right side and 2+ on the left side. Heart sounds: Normal heart sounds. No murmur heard. No gallop. Pulmonary: Effort: Pulmonary effort is normal. Breath sounds: Normal breath sounds and air entry. I agree with the Review of Systems done during the patient visit by the MA. EKG: normal EKG, normal sinus rhythm, unchanged from previous tracings. Assessment & Plan: No problem-specific Assessment & Plan notes found for this encounter. Histories: Past Medical History: Diagnosis Date Arthritis Hypothyroidism Past Surgical History: Procedure Laterality Date CARDIAC CATHETERIZATION N/A 02/24/2020 Procedure: Left Heart Cath Possible PTCA/Stent; Surgeon: Ruben Santana MD; Location: [facility]; Service: Cardiovascular Family History Problem Relation Age of Onset Diabetes Father Social History Tobacco Use Smoking status: Former Smoker Quit date: 1994 Years since quittin.9 Smokeless tobacco: Never Used Vaping Use Vaping Use: Never used Substance Use Topics Alcohol use: Yes Drug use: Never Patient's Medications New Prescriptions No medications on file Previous Medications DICLOFENAC SODIUM (VOLTAREN) 75 MG EC TABLET Take 1 tablet by mouth daily . LEVOTHYROXINE (SYNTHROID, LEVOTHROID) 75 MCG TABLET Take 75 mcg by mouth once daily . Modified Medications Modified Medication Previous Medication ASPIRIN 81 MG EC TABLET aspirin 81 MG EC tablet Take 1 (one) tablet (81 mg total) by mouth daily . Take 1 (one) tablet (81 mg total) by mouth daily . ATORVASTATIN (LIPITOR) 80 MG TABLET atorvastatin (LIPITOR) 80 MG tablet Take 1 (one) tablet (80 mg total) by mouth nightly . TAKE 1 TABLET BY MOUTH NIGHTLY METOPROLOL TARTRATE (LOPRESSOR) 25 MG TABLET metoprolol tartrate (LOPRESSOR) 25 MG tablet Take 1 (one) tablet (25 mg total) by mouth 2 (two) times a day . TAKE 1 TABLET BY MOUTH TWICE A DAY NITROGLYCERIN (NITROSTAT) 0.4 MG SL TABLET nitroGLYCERIN (NITROSTAT) 0.[address] 1 (one) tablet (0.4 mg total) under the tongue every 5 (five) minutes as needed for chest pain . Discontinued Medications CLOPIDOGREL (PLAVIX) 75 MG TABLET Take 1 (one) tablet (75 mg total) by mouth daily Take 300mg (4 tablets) for first dose only. . No Known Allergies Overview of Problems Addressed: No problems updated. Objective: Orders Placed This Encounter diclofenac sodium (VOLTAREN) 75 MG EC tablet aspirin 81 MG EC tablet atorvastatin (LIPITOR) 80 MG tablet metoprolol tartrate (LOPRESSOR) 25 MG tablet nitroGLYCERIN (NITROSTAT) 0.4 MG SL tablet Follow Up Ordered: Return in about 1 year (around 03/23/2022). Ruben Santana MD Grant Officer: No Review of Systems Constitutional: Negative for diaphoresis, malaise/fatigue, weight gain and weight loss. HENT: Positive for nosebleeds. Negative for hearing loss and tinnitus. Eyes: Negative for blurred vision and visual disturbance. Cardiovascular: Positive for palpitations. Negative for chest pain, claudication, cyanosis, dyspnea on exertion, irregular heartbeat, leg swelling, near-syncope, orthopnea, paroxysmal nocturnal dyspnea and syncope. Respiratory: Negative for hemoptysis, shortness of breath and snoring. Endocrine: Negative for cold intolerance and heat intolerance. Hematologic/Lymphatic: Does not bruise/bleed easily. Skin: Negative for flushing, poor wound healing and rash. Musculoskeletal: Negative for back pain, muscle weakness and myalgias. Gastrointestinal: Negative for abdominal pain, change in bowel habit, melena, nausea and vomiting. Genitourinary: Negative for decreased libido and hematuria. Neurological: Negative for loss of balance and numbness. Psychiatric/Behavioral: Negative for memory loss. The patient is not nervous/anxious. documented in this encounter [facility] Note 09-21-2020 Telephone Encounter - Sharon Truong RN - 09/21/2020 4:33 PM EDTTelephone Encounter - Ruben Santana MD - 09/21/2020 4:27 PM EDTTelephone Encounter - Sharon Truong RN - 09/21/2020 7:58 AM EDT Note Date & Type Note Facility 09-21-2020 Miscellaneous Notes Message sent to patient through [employer]: You can switch your Brilinta to Plavix. The first day you take plavix you should take 300mg (4 tablets) and then take 75mg (1 tablet) each day after that. We will send a prescription into your pharmacy ([facility]). Please let us know if you have any questions. I would just switch his Brilinta to Plavix and start with a 300 mg loading dose followed by 75 mg a day. Thanks Received by patient through [employer]: Dr Santana, I am taking Brilinta two times a day. My insurance is not picking up all of the cost because they are paying over $300 and my cost is $375.00 after the $300.00 that the insurance is paying for. Is there a different ticagrelor tablet that cost less that I can take ? As of today I have three day of Brilinta left. Thank You,Roni Jiang documented in this encounter [facility] Evaluation note Note Date & Type Note Facility Evaluation note Diagnosis Coronary artery disease, angina presence unspecified, unspecified vessel or lesion type, unspecified whether point hope ira or transplanted heart- Primary documented in this encounter [facility] Evaluation note Note Date & Type Note Facility Evaluation note Diagnosis Coronary artery disease, angina presence unspecified, unspecified vessel or lesion type, unspecified whether point hope ira or transplanted heart documented in this encounter [facility] Evaluation note Note Date & Type Note Facility Evaluation note Diagnosis ACS (acute coronary syndrome) (HCC)- Primary Intermediate coronary syndrome NSTEMI (non-ST elevated myocardial infarction) (HCC) Acute myocardial infarction, subendocardial infarction, episode of care unspecified ACS (acute coronary syndrome) (HCC) Intermediate coronary syndrome NSTEMI (non-ST elevated myocardial infarction) (HCC) Acute myocardial infarction, subendocardial infarction, episode of care unspecified Dyslipidemia Other and unspecified hyperlipidemia Coronary artery disease, unspecified vessel or lesion type, unspecified whether angina present, unspecified whether point hope ira or transplanted heart- Primary documented in this encounter [facility] Evaluation note Note Date & Type Note Facility Evaluation note Diagnosis ACS (acute coronary syndrome) (HCC)- Primary Intermediate coronary syndrome NSTEMI (non-ST elevated myocardial infarction) (HCC) Acute myocardial infarction, subendocardial infarction, episode of care unspecified ACS (acute coronary syndrome) (HCC) Intermediate coronary syndrome NSTEMI (non-ST elevated myocardial infarction) (HCC) Acute myocardial infarction, subendocardial infarction, episode of care unspecified Dyslipidemia Other and unspecified hyperlipidemia Coronary artery disease, unspecified vessel or lesion type, unspecified whether angina present, unspecified whether point hope ira or transplanted heart- Primary Dyslipidemia Other and unspecified hyperlipidemia documented in this encounter [facility] Summary Purpose Family History No Family History Records FoundNo Family History Records FoundNo Family History Records FoundNo Family History Records FoundNo Family History Records FoundNo Family History Records Found Advance Directives No Advanced Directives Records FoundDocuments on File Type Date 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 Advance Directives and Livin g Will 02/23/2020 9:31 PM Latest Code Status on File Code Status Date Activated Date Inactivated Comments Full Code 02/24/2020 5:57 PM 02/25/2020 5:21 PM Full Code 02/23/2020 8:33 PM 02/24/2020 5:57 PM Full Code - Unverified 02/23/2020 7:53 PM 02/23/2020 8 :33 PM Documents on File Type Date 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 Advance Directives and Livin g Will 02/23/2020 9:31 PM Latest Code Status on File Code Status Date Activated Date Inactivated Comments Full Code 02/24/2020 5:57 PM 02/25/2020 5:21 PM Full Code 02/23/2020 8:33 PM 02/24/2020 5:57 PM Full Code - Unverified 02/23/2020 7:53 PM 02/23/2020 8 :33 PM Date Activated Date Inactivated Comments 02/24/2020 5:57 PM 02/25/2020 5:21 PM Date Activated Date Inactivated Comments 02/23/2020 8:33 PM 02/24/2020 5:57 PM Date Activated Date Inactivated Comments 02/23/2020 7:53 PM 02/23/2020 8:33 PM Reason for Referral Status Reason Specialty Diagnoses / Procedures Referred By Contact Referred To Contact Authorized Cardiac Rehabilitation Diagnoses NSTEMI (non-ST elevated myocardial infarction) (HCC) [place] [address] [place] [address] [address] [place] [address] Hospital Course * Nima Longoria, - 02/25/2020 12:34 PM EST MEDONE DISCHARGE SUMMARY Roni Jiang Account: [id number] Admitted: 02/23/2020 Discharge Date/Time: 02/25/20 / 2:33 PM Handoff to PCP PCP to address the following 1. Continue ASCVD risk reduction. Clinical Summary Roni Jiang is a 64 y.o. male with a history of hypothyroidism and previous tobacco abuse who presented to [facility] 02/22/20 with chest pain, found to have NSTEMI, given brillinta load, started on heparin gtt, admitted to [facility] ICU, eventually transferred to [facility] 02/23/2020 for further management. 1. NSTEMI: presented to [facility] with complaints of acute onset of chest tightness with radiation to theleft arm associated with lightheadedness and dyspnea that was worse with exertion. Chest pain relieved by nitropaste. EKG at [facility] initially with ST elevations in V2 and ST depression in III, which resolved on repeat. [facility] trop I trend 0.08-->8-->7.5-->5. Chest pain free on admission. Heparingtt started on arrival. Continued ASA, brillinta, statin and BB. [facility] 02/24/20 with PCI. Cardiology followed. 2. Tobacco Abuse: per hx, quit in 1994. Recommend continued cessation. Discharge Medications Medication List START taking these medications aspirin 81 MG EC tablet Take 1 (one) tablet (81 mg total) by mouth daily . atorvastatin 80 MG tablet Commonly known as: LIPITOR Take 1 (one) tablet (80 mg total) by mouth nightly . Brilinta 90 mg Tab tablet Generic drug: ticagrelor Take 1 (one) tablet (90 mg total) by mouth 2 (two) times a day . metoprolol tartrate 25 MG tablet Commonly known as: LOPRESSOR Take 1 (one) tablet (25 mg total) by mouth 2 (two) times a day . CONTINUE taking these medications levothyroxine 75 MCG tablet Commonly known as: SYNTHROID, LEVOTHROID Where to Get Your Medications These medications were sent to [facility] [address] [place] [address] Hours: 8:00 AM to 7:00 PM Mon-Fri aspirin 81 MG EC tablet atorvastatin 80 MG tablet Brilinta 90 mg Tab tablet metoprolol tartrate 25 MG tablet Physician(s) Family: Kike Perez MD, , Address: [address] [facility] [address] Follow Up: [facility] Schedule an appointment as soon as possible for a visit in 1 month(s) Ruben Santana MD [address] [place] [address] [facility] [address] Follow up Please call to schedule a follow up with your local software developer mid level in 1 month. Thank you. Kike Perez MD [address] [facility] [address] Go in 1 week(s) Additional Information: Patient seen and examined day of discharge. For more information regarding patient's care, including complete radiology reports, please contact [facility] at Patient instructions, including activity, were given to the patient/family at discharge. Please seethe After Visit Summary in the medical record for details. Time spent on discharge: > 30 minutes Completed by: Nima Longoria on 02/25/20, 2:33 PM documented in this encounter Discharge Instructions * Instructions* You Blake CNP - 02/25/2020 Procedure: Drug Eluting Stent to the left anterior descending Done by: Dr. Santana On 02/24/2020 You will need to continue your antiplatelet medication (Aspirin plus Brilinta) for at least 1 year. Do not stop for any reason unless you talk to your software developer mid level! Percutaneous Coronary Intervention: What to Expect at Home Your Recovery Percutaneous coronary intervention (PCI) is the name for procedures that are used to open a narrowed or blocked coronary artery. The two most common PCI procedures are coronary angioplasty and coronary stent placement. Your groin or arm may have a bruise and feel sore for a day or two after a percutaneous coronary intervention (PCI). You can do light activities around the house, but nothing strenuous for several days. This care sheet gives you a general idea about how long it will take for you to recover. But each person recovers at a different pace. Follow the steps below to get better as quickly as possible. How can you care for yourself at home? Activity Do not do strenuous exercise and do not lift, pull, or push anything heavy until your doctor says it is okay. This may be for a day or two. You can walk around the house and do light activity, such as cooking. You may shower 24 to 48 hours after the procedure, if your doctor okays it. Pat the incision dry. Do not take a bath for 1 week, or until your doctor tells you it is okay. If the catheter was placed in your groin, try not to walk up stairs for the first couple of days. If the catheter was placed in your arm near your wrist, do not bend your wrist deeply for the firstcouple of days. Be careful using your hand to get into and out of a chair or bed. If your doctor recommends it, get more exercise. Walking is a good choice. Bit by bit, increase theamount you walk every day. Try for at least 30 minutes on most days of the week. Diet Drink plenty of fluids to help your body flush out the dye. If you have kidney, heart, or liver disease and have to limit fluids, talk with your doctor before you increase the amount of fluids you drink. Keep eating a heart-healthy diet that has lots of fruits, vegetables, and whole grains. If you havenot been eating this way, talk to your doctor. You also may want to talk to a dietitian. This expert can help you to learn about healthy foods and plan meals. Medicines Your doctor will tell you if and when you can restart your medicines. He or she will also give you instructions about taking any new medicines. If you take blood thinners, such as warfarin (Coumadin), clopidogrel (Plavix), or aspirin, be sure to talk to your doctor. He or she will tell you if and when to start taking those medicines again. Make sure that you understand exactly what your doctor wants you to do. Your doctor will prescribe blood-thinning medicines. You will likely take aspirin plus another antiplatelet, such as clopidogrel (Plavix). It is very important that you take these medicines exactly as directed. These medicines help keep the coronary artery open and reduce your risk of a heart attack. Call your doctor if you think you are having a problem with your medicine. Care of the catheter site For 1 or 2 days, keep a bandage over the spot where the catheter was inserted. The bandage probablywill fall off in this time. Put ice or a cold pack on the area for 10 to 20 minutes at a time to help with soreness or swelling. Put a thin cloth between the ice and your skin. Follow-up care is a lopez part of your treatment and safety. Be sure to make and go to all appointments, and call your doctor if you are having problems. It's also a good idea to know your test resultsand keep a list of the medicines you take. When should you call for help? Call 911 anytime you think you may need emergency care. For example, call if: You passed out (lost consciousness). You have severe trouble breathing. You have sudden chest pain and shortness of breath, or you cough up blood. You have symptoms of a heart attack, such as: Chest pain or pressure. Sweating. Shortness of breath. Nausea or vomiting. Pain that spreads from the chest to the neck, jaw, or one or both shoulders or arms. Dizziness or lightheadedness. A fast or uneven pulse. After calling 911, chew 1 adult-strength aspirin. Wait for an ambulance. Do not try to drive yourself. You have been diagnosed with angina, and you have angina symptoms that do not go away with rest or are not getting better within 5 minutes after you take one dose of nitroglycerin. Call your doctor now or seek immediate medical care if: You are bleeding from the area where the catheter was put in your artery. You have a fast-growing, painful lump at the catheter site. You have signs of infection, such as: Increased pain, swelling, warmth, or redness. Red streaks leading from the catheter site. Pus draining from the catheter site. A fever. Your leg or arm looks blue or feels cold, numb, or tingly. Watch closely for changes in your health, and be sure to contact your doctor if you have any problems. Where can you learn more? Log into your personal health record on https://Wonderflowt.C[employer] and enter Q672 in the Education box to learn more about Percutaneous Coronary Intervention: What to Expect at Home. Current as of: August 29, 2014 Content Version: 10.6 9683-9074 rankur. Care instructions adapted under license by your healthcare professional. If you have questions about a medical condition or this instruction, always ask your healthcare professional. [employer] disclaims any warranty or liability for your use of this information. CLOSURE DEVICE INSTRUCTION, HOME CARE INSTRUCTIONS TR Band (Transradial) -DO not manipulate the wrist for 24 hrs. Tegaderm may be removed after 24 hours. -Leave puncture site open to air after 24 hours. If minor oozing, patient may apply Band-Aid and remove after 12 hours. -No soaking wrist for 3 days. -No lifting more than 3-5 pounds with affected wrist for 7 days. -If jennifer bleeding occurs, hold pressure with thumb against puncture site and finger against back of wrist and call 911 for immediate help. Cardiac Rehabilitation: It is VERY important to your recovery that you attend cardiac rehabilitation. Call to schedule an initial appointment at [facility], [facility] [place] or [place] for information on a cardiac rehab facility close to you. Call for cardiac rehab at [place] or [facility]. [phone] [phone] for our [place] location. Cardiac rehabilitation is a program for people who have had a heart attack or bypass surgery, or who have other heart problems. The program includes exercise, lifestyle changes, education, and emotional support. Cardiac rehab can help you improve the quality of your life through better overall health. It can help you lose weight and feel better about yourself. On your cardiac rehab team, you may have your doctor, a nurse specialist, a dietitian, and a physical therapist. They will design your cardiac rehab program specifically for you. You will learn how to reduce your risk for heart problems, how to manage stress, and how to eat a heart-healthy diet. Bythe end of the program, you will be ready to maintain a healthier lifestyle on your own. How can you care for yourself at home? Take your medicines exactly as prescribed. Call your doctor if you think you are having a problem with your medicine. You will get more details on the specific medicines your doctor prescribes. Monitor your weight by weighing yourself at least once a week on the same scale with the same amount of clothing at the same time of day. Plan your meals so that you are eating heart-healthy foods. Eat a variety of foods daily. Fresh fruits and vegetables and whole-grains are good choices. Limit your fat intake, especially saturated and trans fat. Limit salt (sodium). Increase fiber in your diet. Limit alcohol. Learn how to take your pulse so that you can track your heart rate during exercise. Always check with your doctor before you begin a new exercise program. Warm up before you exercise and cool down afterward for at least 15 minutes each. This will help your heart gradually prepare for and recover from exercise and avoid pushing your heart too hard. Stop exercising if you have any unusual discomfort, such as chest pain. Do not smoke. Smoking can make heart problems worse. If you need help quitting, talk to your doctorabout stop-smoking programs and medicines. These can increase your chances of quitting for good. Frequently Asked Questions Coronary Artery Disease 1. How long will my stent last? a. There is a low risk of your stent blocking up. Usually, new problems occur with new blockages somewhere else. 2. Will my stent move? a. No 3. Can I have a MRI with my stent? a. Yes 4. Do I need antibiotics for dental procedures after receiving a stent? a. No 5. What symptoms should I look for or be worried about after having a heart attack? a. Symptoms similar prior to your stent (chest pain, pressure, shortness of breath, etc). 6. I keep having twinges of pain in my heart. What is this? a. Typically pain to the touch or twinges of discomfort that improve with exertion is not from yourheart. It is normal to have some soreness in the chest after stent placement that can last a coupleof weeks, due to the stretching of the vessel. 7. Can I take herbal supplements? a. Herbals are not studied or regulated, so they are NOT advised. 8. Can I take cold medicine? a. Yes, however if you have high blood pressure it is recommended that you avoid decongestants suchas Sudafed (pseudoephedrine) or medications with D portions (i.e. Malou-D, Mucinex-D). 9. Should I get the flu vaccine? a. Yes. 10. I am healthy. Why did I have a heart attack? a. Healthy patients can have heart attacks. Most often due to genetics (family history). 11. Can I take Testosterone? a. You should ONLY take testosterone if it is prescribed by an gis programmer for a true diagnosedcondition. 12. Can I lift weights? a. Cardiovascular exercise such as running, biking, walking, is preferred. Very heavy weight lifting can cause dangerous spikes in blood pressure. 13. How do I know if my stents are still open/will I need routine stress tests? a. We do not do routine stress testing in most cases. We will follow symptoms and determine testingon a case by case basis. 14. Can I ever eat unhealthy foods again (i.e. pizza, ice cream, etc)? Or drink alcohol? a. Yes, but in moderation. Save pizza for special occasions. Instead, eat a wide variety of fruits,vegetables and whole grains, as well as lean meats. A good example of this is the Mediterranean Diet. Keep sodium limited to 2400 mg per day. It is recommended that men drink no more than 2 drinks per day (12 oz beer, 4 oz wine, 1.5 oz 80 proof spirits, 1 oz 100 proof spirits). Women should drink no more than 1 drink per day. 15. How much damage was done to my heart? a. This all depends on the size of the area supplied by the blocked artery, timing of the injury and treatment. An echocardiogram (ultrasound of heart) will tell us how much damage has been done. A repeat echocardiogram in 6 weeks will tell us if the damage is permanent. 16. I am feeling anxious/depressed. Is this normal? a. Yes, many people have these feelings after a heart attack or the diagnosis of coronary artery disease (CAD, heart disease). Talk with one of the counselors available to you at Cardiac Rehab. You can also join various support groups. If you have tried either of these options and you are still having depressed feelings, contact your primary care physician to discuss medication options. 17. I already exercise. Do I need cardiac rehab? a. Yes. Cardiac rehab is associated with a 20-30% reduction in mortality. It also provides more than just exercise. Counseling, dietary education and and psychological support are just some of the multiple benefits of attending cardiac rehab. 18. Why don t I feel any better? a. Not all of your symptoms may be related to the heart. Fatigue, tiredness and shortness of breathmay be caused by other reasons. 19. Why do I have to take antiplatelet medications? a. Antiplatelet medications such as Clopidogrel (Plavix) and Aspirin prevent the formation of a blood clot from forming in your arteries. These medications also decrease the risk of heart attack and . Aspirin will likely be continued for life. Plavix (or Effient/Brilinta) will be for at least 1 year (unless instructed otherwise by your software developer mid level), possibly for life. 20. Why do I need other medications? a. Other medications such as ABIGAIL inhibitors (such as Lisinopril) and Beta Blockers (such as metoprolol and carvedilol) help reduce the risk of heart attack. ABIGAIL inhibitors are used if you have heart failure, diabetes, high blood pressure or chronic kidney disease. Beta Blockers help decrease the risk of after a heart attack. They also help reduce angina (chest pain). Statins (Lipitor and crestor) help decrease the risk of heart attack and stroke and are recommended on all patients with coronary artery disease. These medications will be continued unless you have side effects. 21. What can I do to prevent more problems with my heart? a. Attend cardiac rehab, stop smoking, exercise, reduce alcohol intake, eat a healthy diet, controlyour blood pressure, and take medications as prescribed. 22. When can I resume sexual activity? a. As long as you are not having any chest pain, you may resume sexual activity in 1 week. 23. Can I use erectile dysfunction medications? a. Yes as long as you are not using any nitrates (isosorbide/imdur or nitroglycerin) for chest painsince your blood pressure may drop to an unsafe level. documented in this encounter History of Present Illness * You Blake CNP - 02/25/2020 8:01 AM EST Interventional Cardiology Inpatient Follow-up Heart & Vascular [facility] 02/25/2020 You Blake CNP [facility] Patient: Roni Jiang Date of : 1955 (64 y.o.) PCP: Kike Perez MD Assessment/Plan: NSTEMI (non-ST elevated myocardial infarction) (HCC) Assessment & Plan -Pt with no known cardiac history or family history of cardiac disease. Presented to [facility] with CP, ruled in for NSTEMI with elevated troponin. Transferred to [facility] for further cardiac eval/intervention -EKG reveals NSR w/ TWI in the anterolateral leads -Cr. 1.0 -s/p percutaneous intervention with drug eluting stent placed ot the left anterior descending artery x2 -right radial site without complications -d/w patient importance of DAPT uninterrupted x1 year -encouraged cardiac rehab with diet/ lifestyle modifications -patient will arrange a f/u appointment with known software developer mid level in [place] -Continue ASA, Brilinta, BB, statin -ok to discharge home today from a CV standpoint Dyslipidemia Assessment & Plan - TC 188, triglycerides 97, HDL 82, LDL 87 per lipid panel today. - continue Lipitor 80mg daily Subjective Patient awake at this time in no acute pain or distress. States no issues o/n, no symptoms with ambulation. Imaging: I independently reviewed the telemetry and agree with the interpretation(s) with the following comments. NSR ECG 12 Lead Final Result by Interface, Lab Results In Ada Pyramis (02/25/2020 9245) Cardiac Catheterization by Melina Cloud RN (02/24/2020 0823) Review of Systems: The following system(s) were reviewed and negative. Pertinent positive and negative findings are noted in the HPI. [x] Const [x] Eyes [x] ENT [x] Resp [] CV [x] GI [x] [x] Neuro [x] Musc [x] Skin [x] Psych [x] Endo [x] Allergy [x] Heme/Lymph Current Facility-Administered Medications Medication Dose Route Frequency Provider Last Rate Last Admin acetaminophen (TYLENOL) tablet 650 mg 650 mg Oral Q4H PRN Ruben Santana MD aluminum-magnesium hydroxide-simethicone (MAALOX PLUS) 200-200-20 mg/5 mL suspension 30 mL 30 mL Oral Q4H PRN Ruben Santana MD aspirin EC tablet 81 mg 81 mg Oral Daily Ruben Santana MD atorvastatin (LIPITOR) tablet 80 mg 80 mg Oral Nightly Ruben Santana MD 80 mg at 02/24/202035 atropine injection 1 mg 1 mg Intravenous PRN Ruben Santana MD HYDROcodone-acetaminophen (NORCO) 5-325 mg per tablet 1 tablet 1 tablet Oral Q4H PRN Ruben Santana MD levothyroxine (SYNTHROID, LEVOTHROID) tablet 75 mcg 75 mcg Oral Daily Emily Wild PA-C 75 mcg at 02/25/20 0559 metoprolol tartrate (LOPRESSOR) tablet 25 mg 25 mg Oral BID Emily Wild PA-C 25 mg at 02/24/202035 naloxone (NARCAN) injection 0.1 mg 0.1 mg Intravenous PRN Ruben Santana MD And naloxone (NARCAN) injection 0.4 mg 0.4 mg Intravenous PRN Ruben Santana MD [MAR Hold] nitroGLYCERIN (NITROSTAT) SL tablet 0.4 mg 0.4 mg Sublingual Q5 Min PRN You Blake CNP nitroGLYCERIN (NITROSTAT) SL tablet 0.4 mg 0.4 mg Sublingual Q5 Min PRN Ruben Santana MD ondansetron (ZOFRAN) injection 4 mg 4 mg Intravenous Q6H PRN Ruben Santana MD sodium chloride 0.9% (NS) bolus 250 mL 250 mL Intravenous PRN Ruben Santana MD ticagrelor (BriLINTA) tablet 90 mg 90 mg Oral BID Ruben Santana MD 90 mg at 02/24/202035 traZODone (DESYREL) tablet 50 mg 50 mg Oral Nightly PRN Ruben Santana MD Objective: Physical Examination: BP 107/65 (BP Location: Right arm, Patient Position: Lying) Pulse (!) 57 Temp 98.3 F (36.8 C) (Oral) Resp 16 Ht 5' 10 Wt 92.9 kg (204 lb 12.9 oz) SpO2 97% BMI 29.39 kg/m Constitutional: Alert, well appearing, not in distress.? Eyes: Conjunctivae/corneas clear. Lungs: Clear to auscultation, no wheezes, rales or rhonchi. Cardiovascular: Normal rate and regular rhythm, S1 and S2 normal, no murmurs noted, no carotid bruit, no pedal edema, no JVD. Abdomen: Soft, nontender with normal active bowel sounds; no masses or organomegaly. Skin: Normal coloration and turgor; no rashes or lesions, right radial site with dressing c/d/i no redness swelling or ecchymosis noted Musculoskeletal: Normal Range of Motion (ROM) Psych: Oriented to time, person, and place; appropriate mood. Lab Results Component Value Date CHOL 188 02/24/2020 LDLCALC 87 02/24/2020 TRIG 97 02/24/2020 HDL 82 02/24/2020 Serum creatinine: 1.03 mg/dL 02/25/20 0442 Estimated creatinine clearance: 76.8 mL/min * John Daniellaberkley [place], DO - 02/24/2020 2:22 PM EST [facility] Inpatient Progress Note 02/24/2020 Roni Jiang 1955 [id number] Assessment/Plan: Roni Jiang is a 64 y.o. male with a history of hypothyroidism who presented to [facility] with chest pain. [facility] EKG initially with YOBANI in V2, ST depression in III, resolved on repeat. [facility] trop I trend 0.08-->8-->7.5-->5. [facility] COVID neg. He was given a Brillinta load, started on heparin and admitted to the [facility] ICU. He was transferred 02/23/2020 for further evaluation and m anagement. 1. NSTEMI: presented to [facility] with complaints of acute onset of chest tightness with radiation to theleft arm associated with lightheadedness and SOB, worse with exertion, relieved with nitropaste. [facility] EKG initially with YOBANI in V2, ST depression in III, resolved on repeat. [facility] trop I trend 0.08-->8-->7.5-->5. Chest pain free on admission. Given full dose ASA, Brillinta 180 mg load and nitro at [facility]. Started on heparin gtt, ASA, Brillinta, statin and BB at [facility], continued on admission. Monitor on tele. Hgba1c 5, lipid panel ordered with statin started 02/23/20. Cardio planning [facility] 02/24/20. 2. Hypothyroidism: per hx. TSH pending. Continued home Synthroid. 3. Former Tobacco Use: quit in 1994. 4. DVT Prophylaxis: heparin gtt Current living situation: home Expected Disposition: likely same Estimated discharge date: likely 02/25/20 Subjective: Patient new to me, seen and examined, with labs/imaging reviewed and summarized above in the assessment and plan. Denies cp, sob, n/v/c/f/n/v/abd pain, GI or complaints. Denies headache, new neuro changes including weakness, change in sensation, dizziness, lightheadedness. Discussed plans for [facility] 02/24/20 Physical Exam: BP 127/78 Pulse 60 Temp 97.8 F (36.6 C) (Oral) Resp 16 Ht 5' 10 Wt 92.9 kg (204 lb 12.9 oz) SpO2 98% BMI 29.39 kg/m General: NAD Eyes: EOMI ENT: neck supple Cardiovascular: Regular rate. Respiratory: Clear to auscultation Gastrointestinal: Soft, non tender Genitourinary: no suprapubic tenderness Musculoskeletal: No edema. Skin: warm, dry Neuro: Alert. Psych: Mood appropriate. Current Medications: aspirin 81 mg Oral Daily atorvastatin 40 mg Oral Nightly levothyroxine 75 mcg Oral Daily metoprolol tartrate 25 mg Oral BID ticagrelor 90 mg Oral BID Labs, Imaging and Studies reviewed: Results from last 7 days Lab Units 02/23/20 2034 WBC K/mcL 9.15 HGB g/dL 14.1 HCT % 42.4 PLT K/mcL 228 Results from last 7 days Lab Units 02/24/20 0510 02/23/20 2034 SODIUM mmol/L 139 141 POTASSIUM mmol/L 4.2 4.4 CHLORIDE mmol/L 106 106 BICARB mmol/L 25 24 BUN mg/dL 17 21 CREATININE mg/dL 0.98 0.95 EGFR mL/min/1.73 m2 82 85 GLUCOSE mg/dL 105* 107* CALCIUM mg/dL 9.2 8.9 documented in this encounter* Dolores Nichole RN - 02/25/2020 4:32 PM EST Patient s/p recent [facility] hospitalization--dc'd 02/25/20. Cardiology evaluated for NSTEMI, [facility] with HAN LAD done 02/24/20. Patient to call and schedule a 1 month appt with established software developer mid level in [place]. Our information provided on AVS if questions. documented in this encounter* Ruben Santana MD - 03/24/2020 9:15 AM EST [facility] [id number] [facility] [address] [facility] [id number] Subjective: Roni Jiang is a 64 y.o. male seen in the office today for Follow-up HPI: Roni Jiang is a very pleasant 64 y.o. year old male who presents for a cardiology consultation who has a history of coronary disease who presented with acute coronary syndrome underwent stenting to his LAD system. From a cardiac standpoint he has been doing well without any symptoms. He started cardiac rehab and has had no issues with his medications except for some mild dyspnea with his Brilinta. Overall he feels well and I am quite encouraged to see him doing so well. His physical exam is unrevealing as well as his EKG which is normal. Given him 90-day prescriptions for his atorvastatin, metoprolol and Brilinta and hopefully at 1 year we can stop the Brilinta and keep on a baby aspirin alone. I also plan on checking liver functionsand lipids today to see if the dose of his atorvastatin is appropriate. If something should change please let me know. Thank you very much Physical Examination: BP 129/76 (BP Location: Right arm, Patient Position: Sitting, BP Cuff Size: X- large Adult) Pulse 60 Ht (P) 5' 10 Wt 97.7 kg (215 lb 4.8 oz) BMI (P) 30.89 kg/m Physical Exam Cardiovascular: Normal rate, regular rhythm and normal heart sounds. No extrasystoles are present. Exam reveals no gallop. No murmur heard. Pulses: Carotid pulses are 2+ on the right side and 2+ on the left side. Radial pulses are 2+ on the right side and 2+ on the left side. Posterior tibial pulses are 2+ on the right side and 2+ on the left side. Pulmonary/Chest: Effort normal and breath sounds normal. Nursing note and vitals reviewed. I agree with the Review of Systems done during the patient visit by the MA. EKG: normal EKG, normal sinus rhythm, unchanged from previous tracings. Assessment & Plan: No problem-specific Assessment & Plan notes found for this encounter. Histories: Past Medical History: Diagnosis Date Arthritis Hypothyroidism Past Surgical History: Procedure Laterality Date CARDIAC CATHETERIZATION N/A 02/24/2020 Procedure: Left Heart Cath Possible PTCA/Stent; Surgeon: Ruben Santana MD; Location: [facility]; Service: Cardiovascular Family History Problem Relation Age of Onset Diabetes Father Social History Tobacco Use Smoking status: Former Smoker Quit date: 1994 Years since quittin.9 Smokeless tobacco: Never Used Substance Use Topics Alcohol use: Yes Frequency: Monthly or less Drug use: Never Patient's Medications New Prescriptions No medications on file Previous Medications LEVOTHYROXINE (SYNTHROID, LEVOTHROID) 75 MCG TABLET Take 75 mcg by mouth once daily . NITROGLYCERIN (NITROSTAT) 0.4 MG SL TABLET Modified Medications Modified Medication Previous Medication ASPIRIN 81 MG EC TABLET aspirin 81 MG EC tablet Take 1 (one) tablet (81 mg total) by mouth daily . Take 1 (one) tablet (81 mg total) by mouth daily. ATORVASTATIN (LIPITOR) 80 MG TABLET atorvastatin (LIPITOR) 80 MG tablet Take 1 (one) tablet (80 mg total) by mouth nightly . Take 1 (one) tablet (80 mg total) by mouth nightly . METOPROLOL TARTRATE (LOPRESSOR) 25 MG TABLET metoprolol tartrate (LOPRESSOR) 25 MG tablet Take 1 (one) tablet (25 mg total) by mouth 2 (two) times a day . Take 1 (one) tablet (25 mg total) by mouth 2 (two) times a day . TICAGRELOR (BRILINTA) 90 MG TAB TABLET ticagrelor (BriLINTA) 90 mg Tab tablet Take 1 (one) tablet (90 mg total) by mouth 2 (two) times a day . Take 1 (one) tablet (90 mg total) by mouth 2 (two) times a day . Discontinued Medications No medications on file No Known Allergies Overview of Problems Addressed: No problems updated. Objective: Orders Placed This Encounter Lipid panel Hepatic function panel nitroGLYCERIN (NITROSTAT) 0.4 MG SL tablet atorvastatin (LIPITOR) 80 MG tablet metoprolol tartrate (LOPRESSOR) 25 MG tablet ticagrelor (BriLINTA) 90 mg Tab tablet aspirin 81 MG EC tablet Follow Up Ordered: Return in about 1 year (around 03/24/2021). Ruben Santana MD Catalina Lo MA - 03/24/2020 8:20 AM EST Review of Systems Constitution: Negative for diaphoresis, malaise/fatigue, weight gain and weight loss. HENT: Negative for hearing loss, nosebleeds and tinnitus. Eyes: Negative for blurred vision and visual disturbance. Cardiovascular: Negative for chest pain, claudication, cyanosis, dyspnea on exertion, irregular heartbeat, leg swelling, near-syncope, orthopnea, palpitations, paroxysmal nocturnal dyspnea and syncope. Respiratory: Negative for hemoptysis, shortness of breath and snoring. Endocrine: Negative for cold intolerance and heat intolerance. Hematologic/Lymphatic: Does not bruise/bleed easily. Skin: Negative for flushing, poor wound healing and rash. Musculoskeletal: Negative for back pain, muscle weakness and myalgias. Gastrointestinal: Negative for abdominal pain, change in bowel habit, melena, nausea and vomiting. Genitourinary: Negative for decreased libido and hematuria. Neurological: Negative for loss of balance and numbness. Psychiatric/Behavioral: Negative for memory loss. The patient is not nervous/anxious. documented in this encounter Assessments Diagnosis ACS (acute coronary syndrome) (HCC)- Primary Intermediate coronary syndrome NSTEMI (non-ST elevated myocardial infarction) (HCC) Acute myocardial infarction, subendocardial infarction, episode of care unspecified Dyslipidemia Other and unspecified hyperlipidemia Diagnosis Dyslipidemia- Primary Other and unspecified hyperlipidemia Coronary artery disease, angina presence unspecified, unspecified vessel or lesion type, unspecified whether point hope ira or transplanted heart Additional Source Comments (unrecognized sect ion and content) No Status Records FoundNo Status Records FoundNo Status Records FoundNo Status Records FoundNo Status Records FoundNo Status Records Found INFORMATION SOURCE (unrecogn ized section and content) DATE CREATED AUTHOR 10/03/2017 [facility] DATE CREATED AUTHOR AUTHOR'S ORGANIZ ATION 03/28/2020 [facility] DATE CREATED AUTHOR AUTHOR'S ORGANIZ ATION 06/26/2020 [facility] DATE CREATED AUTHOR AUTHOR'S ORGANIZ ATION 08/29/2021 [facility] DATE CREATED AUTHOR AUTHOR'S ORGANIZ ATION 03/30/2024 [facility] DATE CREATED AUTHOR AUTHOR'S ORGANIZ ATION 04/28/2024 [facility] Reason for Visit (unrecogniz ed section and content) Status Reason Specialty Diagnoses / Procedures Referre d By Contact Referred To Contact Diagnoses ACS (acute coronary syndrome) (HCC) Acute coronary syndrome Reason Comments Follow-up Reason Onset Date Comments medication cost 09/21/2020 Reason Comments Follow-up 1 year Reason Comments Annual Exam Ruben Santana MD - 02/24/2020 9:15 AM You Balderas CNP - 02/24/2020 7:39 AM Emily Cobian PA-C - 02/23/2020 7:40 PM EST H&P Notes (unrecognized sect ion and content) INTERVAL HISTORY AND PHYSICAL Patient Name: Roni Jiang Admit Date: MR #: [id number] : 1955 The H&P has been reviewed and the patient has been examined. I concur with the findings of the H&P. There are no significant changes. It is appropriate to proceed with the planned procedure. Sedation Plan: Moderate ASA Classification: 2 - Patient with mild systemic disease Mallampati Score: Not applicable Ruebn Santana MD 02/24/2020 4:53 PM Interventional Cardiology Inpatient Consult Heart & Vascular [facility] 02/24/2020 You Blake CNP [facility] Patient: Roni Jiang Date of : 1955 (64 y.o.) Referring Provider: Kike Perez MD PCP: Kike Perez MD Assessment/Plan: NSTEMI (non-ST elevated myocardial infarction) (HCC) Assessment & Plan - Pt with no known cardiac history or family history of cardiac disease. Presented to [facility] with CP, ruled in for NSTEMI with elevated troponin. Transferred to [facility] for further cardiac eval/intervention - EKG today reveals NSR w/ TWI in the anterolateral leads - Trop I 0.08-->8-->7.5-->5 - Cr. 0.98 - Given ticagrelor 180mg and started on heparin gtt, continue ticagrelor twice daily and heparin gtt - Continue ASA, BB, statin - Plan for percutaneous intervention today with Dr. Santana - The risk, benefits, and alternatives for coronary angiography +/- PCI were discussed. We specifically reviewed the risk of , myocardial infarction, heart injury, stroke, artery injury, and acute kidney injury. The patient has provided consent for a coronary angiogram with possible intervention. Dyslipidemia Assessment & Plan - TC 188, triglycerides 97, HDL 82, LDL 87 per lipid panel today. - continue Lipitor 40mg daily Subjective Reason for Consultation: NSTEMI History of Present Illness: Roni Jiang is a 64 y.o. male with PMH of hypothyroid who presents to [facility] with complaints of CP that radiated to left arm, SOB, nausea and diaphoresis when raking leaves. In the ED he was given nitroglycerin and ASA with relief of CP. He was given ticagrelor load 180mg and started on heparin gtt. Dr. Perez consulted with Dr. Bhatia and he was transferred to [facility] for cardiac eval/intervention. He denies any history or family history of coronary artery disease. Denies any current CP, SOB, palpitations. Pt will follow up in [place] at discharge. Imaging: I independently reviewed the EKG and agree with the interpretation(s) with the following comments. NSR w/ TWI in the anterolateral leads Review of Systems: The following system(s) were reviewed and negative. Pertinent positive and negative findings are noted in the HPI. [x] Const [x] Eyes [x] ENT [x] Resp [] CV [x] GI [x] [x] Neuro [x] Musc [x] Skin [x] Psych [x] Endo [x] Allergy [x] Heme/Lymph Past Medical History: Diagnosis Date Arthritis Hypothyroidism History reviewed. No pertinent surgical history. Family History Problem Relation Age of Onset Diabetes Father Social History Tobacco Use Smoking Status Former Smoker Quit date: 1994 Years since quittin.8 Smokeless Tobacco Never Used Additional History Comments: None Allergies: Patient has no known allergies. Current Facility-Administered Medications Medication Dose Route Frequency Provider Last Rate Last Admin aspirin EC tablet 81 mg 81 mg Oral Daily Emily Wild PA-C 81 mg at 02/24/20 0920 atorvastatin (LIPITOR) tablet 40 mg 40 mg Oral Nightly Emily Wild PA-C 40 mg at 02/23/20 2220 heparin (porcine) 25,000 unit/250 mL in 0.45% NaCl infusion 0-70 Units/kg/hr (Order-Specific) Intravenous Continuous Emily Wild PA-C 11.6 mL/hr at 02/24/20 0636 12 Units/kg/hr at 02/24/20 0636 heparin bolus from bag 0-5,000 Units 0-5,000 Units Intravenous Continuous PRN Emily Wild PA-C 2,900 Units at 02/24/20 0638 levothyroxine (SYNTHROID, LEVOTHROID) tablet 75 mcg 75 mcg Oral Daily Emily Wild PA-C 75 mcg at 02/24/20 0523 metoprolol tartrate (LOPRESSOR) tablet 25 mg 25 mg Oral BID Emily Wild PA-C 25 mg at 02/24/20 0920 nitroGLYCERIN (NITROSTAT) SL tablet 0.4 mg 0.4 mg Sublingual Q5 Min PRN Emily Wild PA-C sodium chloride 0.9% (NS) 75 mL/hr Intravenous Continuous You Blake, CHELI ticagrelor (BriLINTA) tablet 90 mg 90 mg Oral BID Emily Wild PA-C 90 mg at 02/24/20 0920 Objective: Physical Examination: BP 127/78 Pulse 69 Temp 97.8 F (36.6 C) (Oral) Resp 16 Ht 5' 10 Wt 92.9 kg (204 lb 12.9 oz) SpO2 98% BMI 29.39 kg/m Constitutional: Alert, well appearing, not in distress.? Eyes: Conjunctivae/corneas clear. Lungs: Clear to auscultation, no wheezes, rales or rhonchi. Cardiovascular: Normal rate and regular rhythm, S1 and S2 normal, no murmurs noted, no carotid bruit, no pedal edema, no JVD. Abdomen: Soft, nontender with normal active bowel sounds; no masses or organomegaly. Skin: Normal coloration and turgor; no rashes or lesions. Musculoskeletal: Normal Range of Motion (ROM) Psych: Oriented to time, person, and place; appropriate mood. Lab Results Component Value Date CHOL 188 02/24/2020 LDLCALC 87 02/24/2020 TRIG 97 02/24/2020 HDL 82 02/24/2020 Serum creatinine: 0.98 mg/dL 02/24/20 0510 Estimated creatinine clearance: 80.7 mL/min Associated attestation - Ruben Santana MD - 02/24/2020 11:51 AM EST I personally saw the patient with the Nurse Practitioner, reviewed all notes and studies, and agree with the findings and plans as described below. Patient with symptoms suggesting unstable angina with some minor T wave changes suggesting anterior ischemia. Plan catheterization today. On appropriate medical treatment. Shakeel HARMON [facility] Heart [facility] Vascular Physicians [phone] [employer] History and Physical Note 02/23/20 Roni Jiang 1955 [id number] Assessment/Plan: Roni Jiang is a 64 y.o. male with a history of hypothyroidism who presented to [facility] 02/22/20 with chest pain. [facility] EKG initially with YOBANI in V2, ST depression in III, resolved on repeat. [facility] trop I trend 0.08-->8-->7.5-->5. [facility] COVID neg. He was given a Brillinta load, started on heparin and admitted to the [facility] ICU. He was transferred 02/23/2020 for further evaluation and management. 1. NSTEMI: presented to [facility] with complaints of acute onset of chest tightness with radiation to the left arm associated with lightheadedness and SOB, worse with exertion, relieved with nitropaste. [facility] EKG initially with YOBANI in V2, ST depression in III, resolved on repeat. [facility] trop I trend 0.08-->8-->7.5-->5. Chest pain free on admission. Given full dose ASA, Brillinta 180 mg load and nitro at [facility]. Started on heparin gtt, ASA, Brillinta, statin and BB at [facility], continued on admission. Monitor on tele. Hgba1c, lipid panel pending. Consulted cardiology. 2. Hypothyroidism: per hx. TSH pending. Continued home Synthroid. 3. Obesity: admit BMI 30. Recommend lifestyle modifications as able. 4. Former Tobacco Use: quit in 1994. 5. DVT Prophylaxis: heparin gtt Current living situation: home Expected Disposition: likely same Estimated discharge date: 1-2 days pending clinical course Chief Complaint: Chest pain History of Present Illness: Roni Jiang is a 64 y.o. male with a history of hypothyroidism who presented to [facility] 02/22/20 with chest pain. [facility] EKG initially with YOBANI in V2, ST depression in III, resolved on repeat. [facility] trop I trend 0.08-->8-->7.5-->5. [facility] COVID neg. He was given a Brillinta load, started on heparin and admitted to the [facility] ICU. He was transferred 02/23/2020 for further evaluation and management. [place] Medical record reviewed including lab, vitals including pulse ox, diagnostics, and media consultant recommendations. Patient's plan of care [facility] Final attestation to follow. Mr. Jiang presented to the [facility] ED with complaints of chest pain. He states he was out doing yard work when he developed a tightness in chest that radiated down into his left arm and was associated with some numbness. The pain was associated with shortness of breath, nausea, lightheadedness and diaphoresis and was worsened with exertion. The pain did not subside so he presented to the ED. He was treated with ASA, heparin and nitro and finally had total relief of his pain several hours later. He states he is a former smoker, but quit in 1994. He denies family history of early cardiac disease. He denies recent illness or long travel. He denies fever, chills, abdominal pain, LE edema or pain. He is currently chest pain free. ROS: 10 systems were reviewed and negative, except as noted above. Past Medical, Surgical, Social, Family History: Past Medical History: Diagnosis Date Arthritis Hypothyroidism History reviewed. No pertinent surgical history. Social History Socioeconomic History Marital status: Spouse name: Not on file Number of children: Not on file Years of education: Not on file Highest education level: Not on file Occupational History Not on file Social Needs Financial resource strain: Not on file Food insecurity Worry: Not on file Inability: Not on file Transportation needs Medical: Not on file Non-medical: Not on file Tobacco Use Smoking status: Former Smoker Quit date: 1994 Years since quittin.8 Smokeless tobacco: Never Used Substance and Sexual Activity Alcohol use: Yes Frequency: Monthly or less Drug use: Never Sexual activity: Not on file Lifestyle Physical activity Days per week: Not on file Minutes per session: Not on file Stress: Not on file Relationships Social connections Talks on phone: Not on file Gets together: Not on file Attends confucianist service: Not on file Active member of club or organization: Not on file Attends meetings of clubs or organizations: Not on file Relationship status: Not on file Other Topics Concern Not on file Social History Narrative Not on file Family History Problem Relation Age of Onset Diabetes Father Home Medications: Outpatient Medications as of 02/23/2020 Medication Sig levothyroxine (SYNTHROID, LEVOTHROID) 75 MCG tablet Take 75 mcg by mouth once daily . Physical Exam: BP 144/81 (BP Location: Right arm, Patient Position: Lying) Pulse 66 Temp 98.5 F (36.9 C) (Oral) Resp 16 Ht 5' 10 Wt 92.9 kg (204 lb 12.9 oz) SpO2 100% BMI 29.39 kg/m General: NAD Eyes: conjugate gaze ENT: Neck supple Cardiovascular: Regular rate and rhythm Respiratory: Clear to auscultation bilaterally Gastrointestinal: Soft, non tender Genitourinary: No suprapubic tenderness Musculoskeletal: No edema Skin: Warm, dry Neuro: Alert. Psych: Mood appropriate. Labs, Imaging, and Studies reviewed: Results from last 7 days Lab Units 02/23/202033 WBC K/mcL 9.15 HGB g/dL 14.1 HCT % 42.4 PLT K/mcL 228 Results from last 7 days Lab Units 02/23/202033 SODIUM mmol/L 141 POTASSIUM mmol/L 4.4 CHLORIDE mmol/L 106 BICARB mmol/L 24 BUN mg/dL 21 CREATININE mg/dL 0.95 EGFR mL/min/1.73 m2 85 GLUCOSE mg/dL 107* CALCIUM mg/dL 8.9 Associated attestation - Jovan Quezada MD - 02/23/2020 10:26 PM EST Patient, Roni Jiang, 64 y.o./male, seen and evaluated on 11/15/20, independent of PA; reviewed meds, labs, orders and notes. Agree with the Physical Exam findings and Assessment/Plan as outlined in Emily Wild's note. Continue medications, labs as ordered. Cardiology consulted.documented in this encounter Zachary Wick, PT - 02/25/2020 10:23 AM Emperatriz Magana, OT - 02/25/2020 9:40 AM You Balderas, FITNESS TECHNICIAN - 02/24/2020 7:39 AM EST Consult Notes (unrecognized section and content) Physical Therapy Physical Therapy Screen Upon review of the chart and discussion with the patient, no skilled therapy intervention is indicated. Patient and OT report that patient is independent with all mobility including ambulation in halls and up/down stairs without any difficulty or concern. Patient also reports he received education re: TR band precautions and has no questions re: these. Patient reports he doesn't feel he is in need of any PT and would like PT to sign-off. PT instructed patient to notify nursing and/or physician if any concerns re: PT arise so that PT may be notified to return. Patient demonstrated good comprehension. PT signing-off at this time. Occupational Therapy OCCUPATIONAL THERAPY EVALUATION /DISCHARGE NOTE Skilled Therapy Needs After Discharge Are Skilled Therapy Services Needed After Discharge: No(cardiac rehab) DME Recommendation: None Rehab Potential: Excellent OT Caregiver Readiness OT Caregiver Training: Not required - Patient demonstrates safe technique for discharge Outcomes Measures Prior Function Daily Activity: Raw Score: 24 Prior Function Daily Activity % Impaired: 0% functionally impaired AM-PAC Daily Activity: Raw Score: 24 AM-PAC Daily Activity % Impaired: 0% functionally impaired Occupational Therapy Assessment The patient's current functional participation deficits are (n/a). This reduced independence will limit their life roles of premorbid level individual. The patient's co morbidities do not affect patient performance in the above activities and roles. The performance deficits are a result of musculoskeletal, cardiopulmonary impairment(s) in generalized debility including , safety, and . The patient's home setup is a counsellors, family / caregiver support is a counsellors for return to prior level of function. The patient's awareness of own capacity and performance is a counsellors to return to prior level of function. During the assessment, no modification of task was required and limited treatment options were identified in the plan of care. This consultation required brief review of the medical and therapy history. Activity Tolerance Activity Tolerance: Tolerates 30 min acitivty with multiple rests Therapy Precautions Orthotic Devices: No General Rehab Precautions: (TR bad precautions) Cognition Overall Cognitive Status: Within Functional Limits Arousal/Alertness: Appropriate responses to stimuli Orientation Level: Oriented X4 Executive functioning: WFL Safety Judgment: Good awareness of safety precautions Problem Solving: Able to problem solve independently Attention: Attends to distracted environment Hearing Status: WFL Social Interaction: Cooperative, Appropriate Comments: Pt able to follow all commands. Skilled Intervention: Education provided on TR band precautions with reference to hand out provided. Discussed functional application to ADL ad mobility task. ADL/IADL Skilled Intervention: Pt recently completing morning routine in restroom prior to therapy enterance. Education provided on incision care and modifications to bathing task. Bed Mobility Skilled Intervention: Not observed. Functional Transfers Sit to Stand: Independent Bed to Chair Transfers: Independent Skilled Intervention: Facilitated hallway mobility with no LOB/SOB noted. Education provided oncardiac rehab w/ all questions answered. Education provided on energy conservation techniques and functional application to ADL and mobility task. Pt tolerates stair ambulation w/ no assistance required. Home Living Type of Home: House Home Layout: One level(13 stairs to basement. 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 No pertinent surgical history. For complete objective data, detailed plan of care and patient education refer to: OT EVALUATION flow sheet, OT TREATMENT flow sheet, patient Plan of Care, Plan of Care progress note, and Patient Education. This note stands as the current Discharge Summary upon patient discharge from the hospital or completion of Occupational Therapy Plan of Care. Associated Order(s): IP CONSULT TO CARDIOLOGY Interventional Cardiology Inpatient Consult Heart & Vascular [facility] 02/24/2020 You Blake, CHELI [facility] Patient: Roni Jiang Date of : 1955 (64 y.o.) Referring Provider: Kike Perez MD PCP: Kike Perez MD Assessment/Plan: NSTEMI (non-ST elevated myocardial infarction) (HCC) Assessment & Plan - Pt with no known cardiac history or family history of cardiac disease. Presented to [facility] with CP, ruled in for NSTEMI with elevated troponin. Transferred to [facility] for further cardiac eval/intervention - EKG today reveals NSR w/ TWI in the anterolateral leads - Trop I 0.08-->8-->7.5-->5 - Cr. 0.98 - Given ticagrelor 180mg and started on heparin gtt, continue ticagrelor twice daily and heparin gtt - Continue ASA, BB, statin - Plan for percutaneous intervention today with Dr. Santana - The risk, benefits, and alternatives for coronary angiography +/- PCI were discussed. We specifically reviewed the risk of , myocardial infarction, heart injury, stroke, artery injury, and acute kidney injury. The patient has provided consent for a coronary angiogram with possible intervention. Dyslipidemia Assessment & Plan - TC 188, triglycerides 97, HDL 82, LDL 87 per lipid panel today. - continue Lipitor 40mg daily Subjective Reason for Consultation: NSTEMI History of Present Illness: Roni Jiang is a 64 y.o. male with PMH of hypothyroid who presents to [facility] with complaints of CP that radiated to left arm, SOB, nausea and diaphoresis when raking leaves. In the ED he was given nitroglycerin and ASA with relief of CP. He was given ticagrelor load 180mg and started on heparin gtt. Dr. Perez consulted with Dr. Bhatia and he was transferred to [facility] for cardiac eval/intervention. He denies any history or family history of coronary artery disease. Denies any current CP, SOB, palpitations. Pt will follow up in [place] at discharge. Imaging: I independently reviewed the EKG and agree with the interpretation(s) with the following comments. NSR w/ TWI in the anterolateral leads Review of Systems: The following system(s) were reviewed and negative. Pertinent positive and negative findings are noted in the HPI. [x] Const [x] Eyes [x] ENT [x] Resp [] CV [x] GI [x] [x] Neuro [x] Musc [x] Skin [x] Psych [x] Endo [x] Allergy [x] Heme/Lymph Past Medical History: Diagnosis Date Arthritis Hypothyroidism History reviewed. No pertinent surgical history. Family History Problem Relation Age of Onset Diabetes Father Social History Tobacco Use Smoking Status Former Smoker Quit date: 1994 Years since quittin.8 Smokeless Tobacco Never Used Additional History Comments: None Allergies: Patient has no known allergies. Current Facility-Administered Medications Medication Dose Route Frequency Provider Last Rate Last Admin aspirin EC tablet 81 mg 81 mg Oral Daily Emily Wild PA-C 81 mg at 02/24/20 0920 atorvastatin (LIPITOR) tablet 40 mg 40 mg Oral Nightly Emily Wild PA-C 40 mg at 02/23/20 2220 heparin (porcine) 25,000 unit/250 mL in 0.45% NaCl infusion 0-70 Units/kg/hr (Order-Specific) Intravenous Continuous Emily Wild PA-C 11.6 mL/hr at 02/24/20 0636 12 Units/kg/hr at 02/24/20 0636 heparin bolus from bag 0-5,000 Units 0-5,000 Units Intravenous Continuous PRN Emily Wild PA-C 2,900 Units at 02/24/20 0638 levothyroxine (SYNTHROID, LEVOTHROID) tablet 75 mcg 75 mcg Oral Daily Emily Wild PA-C 75 mcg at 02/24/20 0523 metoprolol tartrate (LOPRESSOR) tablet 25 mg 25 mg Oral BID Emily Wild PA-C 25 mg at 02/24/20 0920 nitroGLYCERIN (NITROSTAT) SL tablet 0.4 mg 0.4 mg Sublingual Q5 Min PRN Emily Wild PA-C sodium chloride 0.9% (NS) 75 mL/hr Intravenous Continuous You Blake, CHELI ticagrelor (BriLINTA) tablet 90 mg 90 mg Oral BID Emily Wild PA-C 90 mg at 02/24/20 0920 Objective: Physical Examination: BP 127/78 Pulse 69 Temp 97.8 F (36.6 C) (Oral) Resp 16 Ht 5' 10 Wt 92.9 kg (204 lb 12.9 oz) SpO2 98% BMI 29.39 kg/m Constitutional: Alert, well appearing, not in distress.? Eyes: Conjunctivae/corneas clear. Lungs: Clear to auscultation, no wheezes, rales or rhonchi. Cardiovascular: Normal rate and regular rhythm, S1 and S2 normal, no murmurs noted, no carotid bruit, no pedal edema, no JVD. Abdomen: Soft, nontender with normal active bowel sounds; no masses or organomegaly. Skin: Normal coloration and turgor; no rashes or lesions. Musculoskeletal: Normal Range of Motion (ROM) Psych: Oriented to time, person, and place; appropriate mood. Lab Results Component Value Date CHOL 188 02/24/2020 LDLCALC 87 02/24/2020 TRIG 97 02/24/2020 HDL 82 02/24/2020 Serum creatinine: 0.98 mg/dL 02/24/20 0510 Estimated creatinine clearance: 80.7 mL/min Associated attestation - Ruben Santana MD - 02/24/2020 11:51 AM EST I personally saw the patient with the Nurse Practitioner, reviewed all notes and studies, and agree with the findings and plans as described below. Patient with symptoms suggesting unstable angina with some minor T wave changes suggesting anterior ischemia. Plan catheterization today. On appropriate medical treatment. Shakeel HARMON [facility] Heart & Vascular Physicians [phone] documented in this encounter Swetha Sparks RN - 02/23/2020 7:49 PM EST ED Notes (unrecognized secti on and content) Patient transported to [place] by [facility] 66,report on arrival to ED. Receiving unit notified of patient's ETA. Vital signs: BP 142/86, HR 60 nsr, RR 18, Pulse Ox 98% on RA . Chief complaint of acute coronary syndrome. Patient does have patent IV access, heparin infusing. Patient was on compliance monitor during transport. Patient will be transported to room 3396 on arrival. documented in this encounter Sign Off Note - You Blake CNP - 02/25/2020 8:07 AM ESTPlan of Care - Linh Duran RN - 02/25/2020 4:43 AM ESTVariance IP Rehab - Reina August PT - 02/24/2020 12:35 PM EST Miscellaneous Notes (unrecog nized section and content) Interventional Cardiology Sign-Off Reason for Consult: NSTEMI Testing/Procedures Completed: PTCA/stent of the left anterior descending Follow-up: Patient will arrange follow up with known software developer mid level in [facility] Discharge Recommendations: ASA, Brilinta, BB and Statin Please call with any questions or concerns. Problem: Actual or potential alteration in health Goal: Absence of healthcare acquired conditions Outcome: Partially Met Goal: Knowledge of Interdisciplinary Plan of Care Outcome: Partially Met Goal: Knowledge of Enviroment Outcome: Partially Met PHYSICAL THERAPY VISIT VARIANCE NOTE Attempted to see patient at this time, but unable secondary to: PT Visit Variance: Awaiting Medical Clearance (comment)(Left heart cath possible PTCA/stent). Will follow up as appropriate. Reviewed POC with patient. OCCUPATIONAL THERAPY VISIT VARIANCE NOTE Attempted to see patient at this time, but unable secondary to: OT Visit Variance: Awaiting Medical Clearance (comment)(Left Heart Cath Possible PTCA/Stent). Will follow up as appropriate. Associated Problem(s): Dyslipidemia - TC 188, triglycerides 97, HDL 82, LDL 87 per lipid panel today. - continue Lipitor 80mg daily Associated Problem(s): NSTEMI (non-ST elevated myocardial infarction) (HCC) -Pt with no known cardiac history or family history of cardiac disease. Presented to [facility] with CP, ruled in for NSTEMI with elevated troponin. Transferred to [facility] for further cardiac eval/intervention -EKG reveals NSR w/ TWI in the anterolateral leads -Cr. 1.0 -s/p percutaneous intervention with drug eluting stent placed ot the left anterior descending artery x2 -right radial site without complications -d/w patient importance of DAPT uninterrupted x1 year -encouraged cardiac rehab with diet/ lifestyle modifications -patient will arrange a f/u appointment with known software developer mid level in [place] -Continue ASA, Brilinta, BB, statin -ok to discharge home today from a CV standpoint documented in this encounter Care Teams (unrecognized sec tion and content) Long Term Acute Care Registered Nurse Relationship Specialty Start Date End Date Kike Perez MD [address] [place] [address] PCP - General Family Medicine 02/23/20 Ruben Santana MD [address] [address] Consulting Physician Cardiology 03/24/20 Long Term Acute Care Registered Nurse Relationship Specialty Start Date End Date Kike Perez MD [address] [place] [address] PCP - General Family Medicine 02/23/20 Ruben Santana MD [address] [id number] Consulting Physician Cardiology 03/24/20 Long Term Acute Care Registered Nurse Relationship Specialty Start Date End Date Kike Perez MD [address] [place] [address] PCP - General Family Medicine 02/23/20 Ruben Santana MD [address] [address] Consulting Physician Cardiology 03/24/20 Long Term Acute Care Registered Nurse Relationship Specialty Start Date End Date Kike Perez MD [address] [facility] [place] [address] PCP - General Family Medicine 02/23/20 Ruben Santana MD [address] [facility] [address] [id number] Consulting Physician Cardiology 03/24/20 FOR RECORDS PERTAINING TO PATIENTS WHO ARE OR HAVE BEEN ENROLLED IN A CHEMICAL DEPENDENCY/SUBSTANCEABUSE PROGRAM, SOME INFORMATION MAY BE OMITTED. This clinical summary was aggregated from multiple sources. Caution should be exercised in using it in the provision of clinical care. This summary normalizes information from multiple sources, and as a consequence, information in this document may materially change the coding, format and clinical context of patient data. In addition, data may be omitted in some cases. CLINICAL DECISIONS SHOULD BE BASED ON THE PRIMARY CLINICAL RECORDS. [employer] provides no warranty or guarantee of the accuracy or completeness of information in this document.
[2024-12-03 12:10] LABS: Hematocrit 43.8 % (42.0-54.0); Hemoglobin 14.9 g/dL (14.0-18.0); Immature Granulocytes Abs Auto 0.01 10^3/uL (0.00-0.03); Immature Granulocytes Pct Auto 0.2 % (0.0-0.5); Lymphocytes Absolute Auto 1.8 10^3/uL (1.2-3.8); Mean Corpuscular HGB Conc 34.0 g/dL (29.9-35.2); Mean Corpuscular Hemoglobin 33.0 pg (25.9-34.0); Mean Corpuscular Volume 96.9 fL (80.0-94.0); Platelet Count 221 10^3/uL (150-450); Red Blood Count 4.52 10^6/uL (4.70-6.10); White Blood Count 5.5 10^3/uL (4.0-11.0)
[2024-12-03 12:35] LABS: Alanine Aminotransferase 47 U/L (16-63); Albumin Globulin Ratio 1.3; Albumin Level 4.0 g/dL (3.4-5.0); Alkaline Phosphatase 79 U/L (46-116); Anion Gap 13.4; Aspartate Amino Transferase 30 U/L (15-37); Blood Urea Nitrogen 22.0 mg/dL (7.0-18.0); Calcium 9.1 mg/dL (8.5-10.1); Carbon Dioxide 27.8 mmol/L (21.0-32.0); Chloride 104 mmol/L (98-107); Cholesterol 151 mg/dL (<=200); Estimated GFR (African America >60 (>=60 mL/min/1.73m^2); Estimated GFR (Non-African Ame >60 (>=60 mL/min/1.73m^2); Free T3 2.69 pg/mL (2.18-3.98); Globulin 3.2 g/dL; Glucose 98 mg/dL (74-106); HDL Cholesterol 84 mg/dL (40-60); Potassium 4.2 mmol/L (3.5-5.1); Sodium 141 mmol/L (136-145); Thyroid Stimulating Hormone 1.459 uIU/mL (0.358-3.740); Total Protein 7.2 g/dL (6.4-8.2); Triglycerides 50 mg/dL (<=150); VLDL CHOLESTEROL 10.0 mg/dL
[2024-12-04 04:07] LABS: PSA, Free 0.16 ng/mL
== END 2024-12-03 10:11 | disposition home or self-care (01) ==
PROVIDERS: PCP Family Medicine; Visit Provider Family Medicine
DX: Z12.11 Encounter for screening for malignant neoplasm of colon (principal); R53.83 Other fatigue; Z12.5 Encounter for screening for malignant neoplasm of prostate; E03.9 Hypothyroidism, unspecified; R73.09 Other abnormal glucose; E78.00 Pure hypercholesterolemia, unspecified; R97.20 Elevated prostate specific antigen [PSA]
CPT/HCPCS: 36415; 80053; 80061; 83036; 84153; 84154; 84436; 84443; 84481; 85025; G0328